=== PATIENT | male | born 1950 ===

== ENCOUNTER 2016-11-23 08:18 | Day surgery (SDC) | payer OTHER, MEDICAID ==
[2016-11-13 13:29] VITALS: BMI 30.8
[2016-11-23] MEDS ORDERED: Propofol 10 mg/ml Inj (20 ML) ONE (09:06)
[2016-11-23] MEDS ORDERED: Sodium Chloride 0.9% 1,000 ML IV SCH (09:30)
[2016-11-23 09:36] VITALS: O2SAT 98
[2016-11-23 10:20] VITALS: BP 116/74; PULSE 67; RESP 16; TEMP 98.5
== END 2016-11-23 11:00 | disposition home or self-care (01) ==
LOC: ENDO 08:18
PROVIDERS: ATTEND Internal Medicine
DX: K57.30 Diverticulosis of large intestine without perforation or abscess without bleeding (principal); D12.3 Benign neoplasm of transverse colon; K64.8 Other hemorrhoids; I10 Essential (primary) hypertension
CPT/HCPCS: 45380; 88305; J2704; J7040 ×2

== ENCOUNTER 2016-12-01 12:20 | Inpatient (IN) | payer OTHER, MEDICAID ==
[2016-12-01 12:35] VITALS: BMI 22.8
[2016-12-01] MEDS ORDERED: Morphine 4 mg/ml ISec IVP STA (13:10)
[2016-12-01] MEDS ORDERED: Sodium Chloride 0.9% 500 ML IV STA (13:11)
[2016-12-01] MEDS ORDERED: Iohexol 240 (50 ml) ONE (13:12)
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
[2016-12-01 14:04] LABS: ADD MANUAL DIFF? NO
[2016-12-01 14:08] LABS: BASO # 0.03 K/mm3 (0.0-2.0); BASO % 0.4 % (0.0-3.0); EOS # 0.4 (0.0-0.7); EOS % 5.6 % (1.5-5.0); GRAN # 4.83 (1.4-6.5); GRAN % 68.2 % (50.0-68.0); LYMPH # 1.4 (1.2-3.4); LYMPH % 19.7 % (22.0-35.0); MEAN CELL VOLUME 86.3 fL (80.0-105.0); MEAN CORPUSCULAR HEMOGLOBIN 28.9 pg (25.0-35.0); MEAN CORPUSCULAR HGB CONC 33.5 g/dl (31.0-37.0); MEAN PLATELET VOLUME 10.7 fl (7.0-11.0); MONO # 0.4 (0.1-0.6); MONO % 6.1 % (1.0-6.0); PLATELET COUNT 271 10^3/uL (120.0-450.0); RED CELL DISTRIBUTION WIDTH 15.2 % (11.5-14.5); WHITE BLOOD COUNT 7.1 10^3/ul (4.5-11.0)
[2016-12-01 14:18] LABS: INR 1.1 (0.93-1.08); PARTIAL THROMBOPLASTIN TIME 25.9 Seconds (23.7-30.8)
[2016-12-01 16:42] LABS: ALB/GLOB RATIO 0.8 (1.1-1.8); ALKALINE PHOSPHATASE 107 U/L (38-133); ALT/SGPT 38 U/L (7-56); AST/SGOT 44 U/L (15-59); BILIRUBIN,TOTAL 0.2 mg/dL (0.2-1.3); BLOOD UREA NITROGEN 18 mg/dL (7-21); CALCIUM 8.3 mg/dL (8.4-10.5); CARBON DIOXIDE 29 mmol/L (21-33); CHLORIDE 104 mmol/L (98-107); GFR AFRICAN-AMERICAN > 60; GLUCOSE,RANDOM 77 mg/dL (70-110); LIPASE 54 U/L (23-300); POTASSIUM 4.2 mmol/L (3.6-5.0); SODIUM 138 mmol/L (132-148); TOTAL PROTEIN 6.3 g/dL (5.8-8.3)
[2016-12-01] MEDS ORDERED: Iohexol 350 MG/100 ML VIAL ONE (17:10)
--- NOTE | 2016-12-01 19:02 | CT ---
PROCEDURE: CT Abdomen and Pelvis with contrast HISTORY: RLQ pain; h/o cystectomy and ileostomy COMPARISON: 11/05/2016 TECHNIQUE: Contrast dose: 100 cc of Omnipaque 320 Radiation dose: Total exam DLP = 757 mGy-cm. This CT exam was performed using one or more of the following dose reduction techniques: Automated exposure control, adjustment of the mA and/or kV according to patient size, and/or use of iterative reconstruction technique. FINDINGS: LOWER THORAX: Unremarkable. LIVER: Unremarkable. No gross lesion or ductal dilatation. GALLBLADDER AND BILE DUCTS: Unremarkable. PANCREAS: Unremarkable. No gross lesion or ductal dilatation. SPLEEN: Unremarkable. ADRENALS: Unremarkable. No mass. KIDNEYS AND URETERS: Re-demonstration of bilateral renal pelvic dilatation and E bilateral ureteral dilatation with left lower quadrant ileal conduit. VASCULATURE: Unremarkable. No aortic aneurysm. BOWEL: Mildly distended small bowel loops in the left mid abdomen, possibly representing an ileus. APPENDIX: Normal appendix. PERITONEUM: Unremarkable. No free fluid. No free air. LYMPH NODES: Unremarkable. No enlarged lymph nodes. BLADDER: Status post cystectomy.. REPRODUCTIVE: Penile implant in place. BONES: No acute fracture. OTHER FINDINGS: None. IMPRESSION: Mildly distended small bowel loops in the left mid abdomen, possibly representing an ileus. Cannot exclude early small bowel obstruction. Re-demonstration of bilateral renal pelvic dilatation and E bilateral ureteral dilatation with left lower quadrant ileal conduit.
--- NOTE | 2016-12-01 20:52 | CP.PCM.CON ---
<ZulemaAyah - Last Filed: 12/01/16 22:07> History of Present Illness - History of Present Illness History of Present Illness: General Surgery Dr. Mayen HPI: 66 y/o Uz[place]-speaking M w/ PMHx of Prostate Ca, HTN, GERD presents to the ED w/ c/o abd pain. Pt's daughter at bedside and provided translation. Pt reports having diffuse, crampy, intermittent abd pain x3mons; however pain significantly worsened yesterday evening after coughing/sneezing all week. Pt describes new pain as sharp and says it feels like something in moving or bursting out of his abd. Daughter reports multiple syncopal episodes over the last 3mons associated w/ the diffuse abd pain. nothing makes diffuse abd pain worse but Motrin 800mg makes pain better. Pt also admits to loose stool, urgency , and bowel incontinence over the last 3mons. Pt had an EGD 3mons ago and a colonoscopy 1wk ago. Pt denies recent flatus but states last BM was 30mins prior to interview. Admits to dizziness, lightheadedness, bloating/distension. denies CP, SOB, N/V, weakness. PMHx: above, hemorrhoids Meds: reviewed in chart NKDA PSHx: TURP, Penile implant, cystectomy, urostomy SHx: denies tobacco/drug use. 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 - ENDOCRINE/METABOLIC Hx Endocrine Disorders: No - HEMATOLOGICAL/ONCOLOGICAL Hx Blood Transfusions: Yes Hx Blood Transfusion Reaction: No Hx Cancer: Yes (Prostate) - INTEGUMENTARY Hx Dermatological Problems: No - MUSCULOSKELETAL/RHEUMATOLOGICAL Hx Musculoskeletal Disorders: No - GASTROINTESTINAL Hx Gastrointestinal Disorders: Yes Hx Gastritis: Yes Hx Hemorrhoids: Yes - GENITOURINARY/GYNECOLOGICAL Hx Genitourinary Disorders: Yes (UROSTOMY BAG) Other/Comment: PENILE SURGERY (FOR ERECTION) - PSYCHIATRIC Hx Emotional Abuse: No Hx Physical Abuse: No Hx Substance Use: No - SURGICAL HISTORY Other/Comment: Prostate - ANESTHESIA Hx Anesthesia Reactions: No Hx Malignant Hyperthermia: No Meds Allergies/Adverse Reactions: Allergies Allergy/AdvReac Type Severity Reaction Status Date / Time No Known Allergies Allergy Verified 12/07/16 17:58 Physical Exam - Constitutional Appears: Non-toxic, No Acute Distress - Head Exam Head Exam: NORMAL INSPECTION - Eye Exam Eye Exam: Normal appearance - ENT Exam ENT Exam: Mucous Membranes Moist - Respiratory Exam Respiratory Exam: Clear to Auscultation Bilateral, NORMAL BREATHING PATTERN. absent: Accessory Muscle Use, Respiratory Distress - Cardiovascular Exam Cardiovascular Exam: REGULAR RHYTHM. absent: Bradycardia, Tachycardia, Clicks - GI/Abdominal Exam GI & Abdominal Exam: Distended (minimal ), Hernia (incisional, right of midline) , Normal Bowel Sounds, Soft, Tenderness (RLQ/umbilical TTP). absent: Guarding Additional comments: urostomy bag w/ clear, yellow urine midline scar present - Extremities Exam Extremities exam: Positive for: normal inspection. Negative for: pedal edema - Neurological Exam Neurological exam: Alert, Oriented x3 - Psychiatric Exam Psychiatric exam: Normal Affect, Normal Mood - Skin Skin Exam: Dry, Intact, Normal Color, Warm Results - Vital Signs Recent Vital Signs: Last Vital Signs Temp 98.2 F 12/01/16 12:35 Pulse 66 12/01/16 18:55 Resp 18 12/01/16 18:55 BP 118/79 12/01/16 18:55 Pulse Ox 98 12/01/16 18:55 - Labs Result Diagrams: 12/01/16 14:03 12/01/16 16:23 - Imaging and Cardiology CT scan - chest Status: Image reviewed by me, Report reviewed by me Assessment & Plan - Assessment and Plan (Free Text) Assessment: 66 y/o M w/ abd pain possibly 2/2 pSBO - reducible incisional hernia - monitor BMs - pain management - sips & chips - NGT if vomiting develops will discuss w/ Dr. Faheem Poole DO PGY1 <Sukumar Mayen - Last Filed: 12/08/16 08:33> Results - Vital Signs Recent Vital Signs: Last Vital Signs Temp 98.3 F 12/04/16 08:28 Pulse 64 12/04/16 08:28 Resp 20 12/04/16 08:28 BP 142/93 H 12/04/16 08:28 Pulse Ox 98 12/04/16 08:28 - Labs Result Diagrams: 12/02/16 07:00 12/02/16 07:00 Assessment & Plan - Assessment and Plan (Free Text) Plan: Dx Acute Gastroenteritis(No Ventral Hernia found-CT/Examination) Rx Cons measures/No surgery advised This consultation done under myn direct supervision Sirisha Mayen MD FACS
[2016-12-01] MEDS ORDERED: HYDROmorphone 0.5 mg/0.5 ml ISec IVP PRN (22:00)
[2016-12-02 07:49] LABS: BLOOD UREA NITROGEN 15 mg/dL (7-21); CALCIUM 9.1 mg/dL (8.4-10.5); CARBON DIOXIDE 28 mmol/L (21-33); CHLORIDE 107 mmol/L (98-107); CHOLESTEROL 106 mg/dL (130-200); GFR AFRICAN-AMERICAN > 60; GLUCOSE,RANDOM 84 mg/dL (70-110); SODIUM 141 mmol/L (132-148)
[2016-12-02 07:51] LABS: HEMATOCRIT 33.2 % (42.0-52.0); MEAN CELL VOLUME 85.8 fL (80.0-105.0); MEAN CORPUSCULAR HEMOGLOBIN 28.2 pg (25.0-35.0); MEAN CORPUSCULAR HGB CONC 32.8 g/dl (31.0-37.0); MEAN PLATELET VOLUME 10.9 fl (7.0-11.0); RED CELL DISTRIBUTION WIDTH 15.1 % (11.5-14.5); WHITE BLOOD COUNT 4.9 10^3/ul (4.5-11.0)
[2016-12-02 08:23] LABS: IRON 98 ug/dL (45-180)
--- NOTE | 2016-12-02 09:38 | CP.PCM.CON ---
<Justice Ruiz - Last Filed: 12/02/16 15:52> History of Present Illness - History of Present Illness History of Present Illness: PGY4 GI Fellow Consult Note Patient is a 66yo male with PMHx significant for prostate cancer s/p cystectomy and ileal conduit urinary diversion presents to the ED for abdominal pain. Patient has been suffering with mild diffuse abdominal pain for the past 3 months. He describes pain as pressing/squeezing in nature. Over the past week he has had a cough/URI symptoms and noted worsening of pain with coughing/ sneezing. In the past 24-48 hours, pain intensified in the RLQ and began to spread to the entire lower abdomen. Complains that his ileostomy is filling with air when he coughs. Given the increase in pain, he came to the ED for further evaluation. On CT A/P with IV/PO contrast he is noted to have possible ileus as well as hydronephrosis/hydroureter. He denies any diarrhea, constipation, nausea, vomiting, weight loss, fever, chills. PMHx: see HPI PSHx: TURP, penile implant, ileal conduit formation FHx: Mother - Asthma Social: Quit smoking about 35 pack yrs; denies EtOH or illicit drug use Endo: 11/23/16 - Colonoscopy - 3mm TC polyp - tubular adenoma, diverticulosis, end-to-side colo-colonic anastamosis in the TC 06/26/16 - EGD - Gastritis - H pylori positive, reflux esophagitis 06/26/26 - Colonoscopy - 3mm TC polyp - tubular adenoma, diverticulosis; inflammation - mild crypt distortion, no active colitis Review of Systems - Constitutional Constitutional: absent: Anorexia, Chills, Fatigue, Fever - EENT Eyes: absent: Change in Vision Nose/Mouth/Throat: absent: Sore Throat - Cardiovascular Cardiovascular: absent: Chest Pain, Dyspnea, Edema - Respiratory Respiratory: Cough. absent: Dyspnea, Excessive Mucous Production - Gastrointestinal Gastrointestinal: Abdominal Pain, Bloating, Cramping. absent: Constipation, Diarrhea, Dyspepsia, Dysphagia, Hematemesis, Hematochezia, Loose Stools, Melena , Nausea, Vomiting - Genitourinary Genitourinary: absent: Dysuria, Urinary Frequency, Urinary Urgency - Musculoskeletal Musculoskeletal: absent: Back Pain, Neck Pain - Integumentary Integumentary: absent: New Lesions, Rash - Neurological Neurological: absent: Dizziness, Numbness, Focal Weakness - Psychiatric Psychiatric: absent: Anxiety, Depression - Endocrine Endocrine: absent: Polydipsia, Polyphagia, Polyuria - Hematologic/Lymphatic Hematologic: absent: Easy Bleeding, Easy Bruising, Lymphadenopathy Past Patient History - Past Medical History & Family History Past Medical History?: Yes - Past Social History Smoking Status: Never Smoked - CARDIAC Hx Hypertension: Yes Hx Pacemaker: No - PULMONARY Hx Respiratory Disorders: No - NEUROLOGICAL Hx Paralysis: No - HEENT Hx HEENT Problems: No - RENAL Hx Chronic Kidney Disease: Yes (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 - ENDOCRINE/METABOLIC Hx Endocrine Disorders: No - HEMATOLOGICAL/ONCOLOGICAL Hx Blood Transfusions: Yes Hx Blood Transfusion Reaction: No Hx Cancer: Yes (Prostate) - INTEGUMENTARY Hx Dermatological Problems: No - MUSCULOSKELETAL/RHEUMATOLOGICAL Hx Musculoskeletal Disorders: No - GASTROINTESTINAL Hx Gastrointestinal Disorders: Yes Hx Gastritis: Yes Hx Hemorrhoids: Yes - GENITOURINARY/GYNECOLOGICAL Hx Genitourinary Disorders: Yes (UROSTOMY BAG) Other/Comment: PENILE SURGERY (FOR ERECTION) - PSYCHIATRIC Hx Emotional Abuse: No Hx Physical Abuse: No Hx Substance Use: No - SURGICAL HISTORY Other/Comment: Prostate - ANESTHESIA Hx Anesthesia Reactions: No Hx Malignant Hyperthermia: No Meds Allergies/Adverse Reactions: Allergies Allergy/AdvReac Type Severity Reaction Status Date / Time No Known Allergies Allergy Verified 12/01/16 12:35 - Medications Medications: Current Medications Hydromorphone HCl (Dilaudid) 0.5 mg IVP Q4H PRN PRN Reason: Pain, Mild (1-3) Sodium Chloride (Sodium Chloride 0.9%) 1,000 mls @ 100 mls/hr IV .Q10H PAPI Pantoprazole Sodium (Protonix Inj) 40 mg IVP DAILY PAPI Physical Exam - Constitutional Appears: Non-toxic, No Acute Distress - Eye Exam Eye Exam: EOMI, PERRL - ENT Exam ENT Exam: Mucous Membranes Moist - Respiratory Exam Respiratory Exam: Clear to Auscultation Bilateral. absent: Rales, Rhonchi, Wheezes - Cardiovascular Exam Cardiovascular Exam: RRR, +S1, +S2 - GI/Abdominal Exam GI & Abdominal Exam: Normal Bowel Sounds, Soft, Tenderness (RLQ). absent: Distended, Firm, Guarding, Organomegaly, Rigid Additional comments: midline scar, left lower quadrant ileal conduit - Extremities Exam Extremities exam: Positive for: normal inspection. Negative for: pedal edema - Neurological Exam Neurological exam: Alert, Oriented x3 - Psychiatric Exam Psychiatric exam: Normal Affect, Normal Mood - Skin Skin Exam: Dry, Warm Results - Vital Signs Recent Vital Signs: Last Vital Signs Temp 98.2 F 12/01/16 12:35 Pulse 66 12/01/16 18:55 Resp 18 12/01/16 20:55 BP 118/79 12/01/16 18:55 Pulse Ox 98 12/01/16 18:55 - Labs Result Diagrams: 12/02/16 07:00 12/02/16 07:00 Labs: Laboratory Results - last 24 hr 12/02/16 12/02/16 12/02/16 07:00 07:00 07:00 WBC 4.9 D RBC 3.87 Hgb 10.9 L Hct 33.2 L MCV 85.8 MCH 28.2 MCHC 32.8 RDW 15.1 H Plt Count 255 MPV 10.9 Sodium 141 Potassium 4.0 Chloride 107 Carbon Dioxide 28 Anion Gap 10 BUN 15 Creatinine 1.0 Est GFR ( Amer) > 60 Est GFR (Non-Af Amer) > 60 Random Glucose 84 Calcium 9.1 Iron 98 TIBC 237 L % Saturation 42 Triglycerides 122 Cholesterol 106 L LDL Cholesterol Direct 41 HDL Cholesterol 24 L TSH 3rd Generation 12/02/16 07:00 WBC RBC Hgb Hct MCV MCH MCHC RDW Plt Count MPV Sodium Potassium Chloride Carbon Dioxide Anion Gap BUN Creatinine Est GFR ( Amer) Est GFR (Non-Af Amer) Random Glucose Calcium Iron TIBC % Saturation Triglycerides Cholesterol LDL Cholesterol Direct HDL Cholesterol TSH 3rd Generation 1.24 Assessment & Plan - Assessment and Plan (Free Text) Assessment: Patient is a 66yo male with PMHx significant for prostate cancer s/p cystectomy and ileal conduit urinary diversion presents to the ED for abdominal pain. -Abdominal pain -Hydroureter/hydronephrosis -H pylori gastritis Plan: -CT and recent EGD/colonoscopy reviewed -Recommend continuation of Quad therapy if patient is presently taking this regimen -Encourage urologic evaluation of persistent hydronephrosis/ureter and excess gas in ostomy -No further recommendations at this time -Will monitor clinical course - Date & Time Date: 12/02/16 Time: 09:45 <Lexx Matthews MD - Last Filed: 12/02/16 16:47> Meds - Medications Medications: Current Medications Hydromorphone HCl (Dilaudid) 0.5 mg IVP Q4H PRN PRN Reason: Pain, Mild (1-3) Sodium Chloride (Sodium Chloride 0.9%) 1,000 mls @ 100 mls/hr IV .Q10H PAPI Pantoprazole Sodium (Protonix Inj) 40 mg IVP DAILY PAPI Last Admin: 12/02/16 11:08 Dose: 40 mg Results - Vital Signs Recent Vital Signs: Last Vital Signs Temp 98.5 F 12/02/16 06:00 Pulse 62 12/02/16 06:00 Resp 20 12/02/16 06:00 BP 105/75 12/02/16 06:00 Pulse Ox 98 12/02/16 06:00 - Labs Result Diagrams: 12/02/16 07:00 12/02/16 07:00 Labs: Laboratory Results - last 24 hr 12/02/16 12/02/16 12/02/16 07:00 07:00 07:00 WBC RBC Hgb Hct MCV MCH MCHC RDW Plt Count MPV Sodium 141 Potassium 4.0 Chloride 107 Carbon Dioxide 28 Anion Gap 10 BUN 15 Creatinine 1.0 Est GFR ( Amer) > 60 Est GFR (Non-Af Amer) > 60 Random Glucose 84 Hemoglobin A1c 6.1 Calcium 9.1 Iron 98 TIBC 237 L % Saturation 42 Triglycerides 122 Cholesterol 106 L LDL Cholesterol Direct 41 HDL Cholesterol 24 L Vitamin B12 805 Folate 16.1 TSH 3rd Generation 12/02/16 12/02/16 07:00 07:00 WBC 4.9 D RBC 3.87 Hgb 10.9 L Hct 33.2 L MCV 85.8 MCH 28.2 MCHC 32.8 RDW 15.1 H Plt Count 255 MPV 10.9 Sodium Potassium Chloride Carbon Dioxide Anion Gap BUN Creatinine Est GFR ( Amer) Est GFR (Non-Af Amer) Random Glucose Hemoglobin A1c Calcium Iron TIBC % Saturation Triglycerides Cholesterol LDL Cholesterol Direct HDL Cholesterol Vitamin B12 Folate TSH 3rd Generation 1.24 Attending/Attestation - Attestation I have personally seen and examined this patient.: Yes I have fully participated in the care of the patient.: Yes I have reviewed all pertinent clinical information: Yes Notes (Text): 12/02/16 16:44 66 yo male with PMHx significant for prostate cancer s/p cystectomy and ileal conduit urinary diversion presents to the ED for abdominal pain which has been chronic mostly after eating. He has had EGd and 2 colonoscopies which were unrevealing. Recently started on H pylori treatment. Pain could be multifactorial with b/l hydroureter and H pylori gastritis. Prudent to rule out mesenteric ischemia. Will do CT angiogram. Continue quadruple H pylori Rx. Diet as tolerated
[2016-12-02 09:58] VITALS: RESP 20
[2016-12-02 12:57] LABS: FOLATE 16.1 ng/mL
--- NOTE | 2016-12-02 13:08 | CP.PCM.PCO ---
Physician Communication Note - Physician Communication Note Physician Communication Note: CT No Hernia-[employer]/No surgery now
--- NOTE | 2016-12-02 13:53 | CP.PCM.PN ---
Subjective - Date & Time of Evaluation Date of Evaluation: 12/02/16 Time of Evaluation: 10:00 - Subjective Subjective: General Surgery Progress Note for Dr. Mayen Pt was seen and examined at bedside. No acute complaints at this time. No acute or adverse events overnight as per nursing staff. Pt has mild abdominal pain at this time on the RLQ, especially upon palpation. No fever chills, n/v. Objective - Vital Signs/Intake and Output Vital Signs (last 24 hours): Temp Pulse Resp BP Pulse Ox 98.5 F 62 20 105/75 98 12/02/16 06:00 12/02/16 06:00 12/02/16 06:00 12/02/16 06:00 12/02/16 06:00 Intake and Output: 12/02/16 12/02/16 06:59 18:59 Intake Total 0 0 Output Total 200 Balance 0 -200 - Medications Medications: Current Medications Hydromorphone HCl (Dilaudid) 0.5 mg IVP Q4H PRN PRN Reason: Pain, Mild (1-3) Sodium Chloride (Sodium Chloride 0.9%) 1,000 mls @ 100 mls/hr IV .Q10H [facility] Pantoprazole Sodium (Protonix Inj) 40 mg IVP DAILY [facility] Last Admin: 12/02/16 11:08 Dose: 40 mg - Labs Labs: 12/02/16 07:00 12/02/16 07:00 PT 11.9 Seconds (9.9-11.8) H 12/01/16 14:03 INR 1.10 (0.93-1.08) H 12/01/16 14:03 APTT 25.9 Seconds (23.7-30.8) 12/01/16 14:03 - Constitutional Appears: Well, No Acute Distress - Head Exam Head Exam: ATRAUMATIC, NORMAL INSPECTION, NORMOCEPHALIC - Eye Exam Eye Exam: EOMI, Normal appearance, PERRL Pupil Exam: NORMAL ACCOMODATION, PERRL - ENT Exam ENT Exam: Mucous Membranes Moist, Normal Exam - Neck Exam Neck Exam: Full ROM, Normal Inspection. absent: Lymphadenopathy - Respiratory Exam Respiratory Exam: Clear to Ausculation Bilateral, NORMAL BREATHING PATTERN - Cardiovascular Exam Cardiovascular Exam: REGULAR RHYTHM, +S1, +S2. absent: Murmur - GI/Abdominal Exam GI & Abdominal Exam: Soft, Normal Bowel Sounds. absent: Tenderness Additional comments: ileal conduit - Extremities Exam Extremities Exam: Full ROM, Normal Capillary Refill, Normal Inspection. absent : Joint Swelling, Pedal Edema - Neurological Exam Neurological Exam: Alert, Awake, CN II-XII Intact, Oriented x3 - Psychiatric Exam Psychiatric exam: Normal Affect, Normal Mood - Skin Skin Exam: Dry, Intact, Normal Color, Warm Assessment and Plan - Assessment and Plan (Free Text) Assessment: 66 M with abdominal pain and s/p ileal conduit. -No incisional hernia or obstruction noted on CT - pain management - sips & chips - GI consulted, fu recs - Advance diet as tolerated, CLD - No surgical intervention at this time.
[2016-12-02] MEDS: Sodium Chloride 0.9% 1,000 ML IV SCH ×2 (21:30→21:31)
--- NOTE | 2016-12-03 00:54 | PN ---
DATE: 12/02/2016 SUBJECTIVE: The patient was seen and examined on the bedside effects. and the family members were sitting on the bedside also. No acute event noted over the night. No adverse pain. No nausea or vomiting right now, but having a little bit of pain in the right lower quadrant, especially upon palpation. No fever, no chills. PHYSICAL EXAMINATION: VITAL SIGNS: Temperature 98.5, pulse 62, respirations 20, blood pressure 105/75 , pulse oximetry 98. HEENT: Head normocephalic, atraumatic. Eyes PERRLA. Extraocular muscles intact. Conjunctivae clear. Nose patent. Mucous membranes moist. NECK: Supple. No carotid bruit, JVD or thyromegaly. CHEST: Bilaterally symmetrical. HEART: S1, S2 positive. LUNGS: Clear to auscultation. ABDOMEN: Soft. Bowel sounds present. No organomegaly. EXTREMITIES: No edema, no cyanosis. NEUROLOGIC: The patient awake, alert, moving all 4 extremities. No focal deficits. LABORATORY DATA: White blood cells 4.9, hemoglobin 10.9, hematocrit 33.2, platelets 255. Sodium 141, potassium 4.0, BUN 15, creatinine 1.0, glucose 84. MEDICATIONS: Hydromorphone, Protonix. ASSESSMENT AND PLAN: The patient is a 66-year-old male with anemia. Came with abdominal pain, ileal conduit. No incisional hernia or obstruction noted on CT. Pain management, sips and chips as per surgery. GI consult is on the case. Advanced diet tolerated. No surgical intervention as per Dr. Mayen right now. Dr. Mayen' communication report appreciated. The patient seen by Dr. Lexx Matthews. The patient has history of prostate cancer status post cystectomy and ileal conduit urinary diversion, history of chronic obstructive pulmonary disease, asthma. Pain is like mostly chronic, but more after eating. He had EGD, and 2 colonoscopies which were unrevealing. Recently started on Helicobacter pylori treatment. Rule out mesenteric ischemia. Dr. Matthews ordered CT angio. Continue quadruple Helicobacter pylori prescription and diet as tolerated. Discussion done with the patient and patient's . We will follow up. Catherine Lopez MD cc: [id number] TT: 12/03/2016 00:53:05 Confirmation # [id number] Dictation # [id number] sn MTDD
[2016-12-03] MEDS: Sodium Chloride 0.9% 1,000 ML IV SCH ×2 (04:39→15:35)
--- NOTE | 2016-12-03 08:15 | HP ---
CHIEF COMPLAINT: Abdominal pain. HISTORY OF PRESENT ILLNESS: The patient, my private patient, a 66-year-old male with past medical history of prostate cancer, status post colostomy, status post cystectomy and ileostomy, came to the Emergency Room Department complaining about right-sided abdominal pain since last night. As per heating repair technician, who is acting as a retail shift leader, the patient states that his pain worsens with movement. The patient denies any back pain or any other complaints at this time. No fever, no chills. The patient was seen a couple of times with lower abdominal pain. The patient has actually all doctors in [facility] about his surgery and oncology treatment from [facility]. 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 FAMILY HISTORY: Father and mother noncontributory. HABITS: Never smoked. Alcohol occasionally. Drugs, never uses. ALLERGIES: The patient is not allergic with any medications. HOME MEDICATIONS: The patient does not remember. REVIEW OF SYSTEMS: The patient seen and examined on the bedside. No nausea, vomiting, diarrhea. Complaining about lower abdominal pain. No dysuria, no urinary output change, no back pain, no neck pain, no pruritus or rash, no dizziness, no polyuria, no easy bruising, not depression. No fever or chills. No vision changes, no hearing loss, no shortness of breath, no chest pain, but has abdominal pain. PHYSICAL EXAMINATION: VITAL SIGNS: Temperature 98.2, pulse 74, respiratory rate 18, blood pressure 120/90, pulse oximeter 98%. HEENT: Head normocephalic, atraumatic. Eyes PERRLA. Extraocular muscles intact. Conjunctivae clear. Nose patent. Mucous membranes moist. NECK: Supple. No carotid bruit, no JVD, no thyromegaly. CHEST: Bilaterally symmetrical. HEART: S1, S2 positive. LUNGS: Clear to auscultation. Good air exchange . CARDIOVASCULAR: Regular rate and rhythm. Normal S1, S2 positive. ABDOMEN: Tenderness on palpation to the right lower quadrant. Scars, multiple abdominal scars with ileostomy present. EXTREMITIES: No edema, no cyanosis. NEUROLOGIC: The patient is awake, alert, moving all 4 extremities. Cranial nerves II-XII are grossly intact. LABORATORIES: White blood cells 7.1, hemoglobin 11.4, hematocrit 34.0, platelets 271. Sodium 130, potassium 4.2, BUN noted .creatinine 1.0, glucose 77. ASSESSMENT AND PLAN: The patient is a 66-year-old male with anemia, came with abdominal pain. CAT scan of the abdomen and pelvis done, has mildly distended small bowel loops in the left mid abdomen, possibility of representing an ileus , cannot exclude early small bowel obstruction, redemonstration of the bilateral renal pelvic dilatation and bilateral urethral dilatation and left lower quadrant ileal conduit. We will call consult with surgery and GI. The patient has history of prostate cancer, status post cystectomy and ileostomy, history of hypertension. 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 History of anemia, blood transfusion. Gastrointestinal and deep venous thrombosis prophylaxis, pain management, IV fluid and Pepcid. We will follow up. Catherine Lopez MD cc: [id number] TT: 12/02/2016 09:07:57 en MTDD
--- NOTE | 2016-12-03 09:12 | CP.PCM.PN ---
<JanaenatoJustice mcghee - Last Filed: 12/03/16 14:15> Subjective - Date & Time of Evaluation Date of Evaluation: 12/03/16 Time of Evaluation: 08:15 - Subjective Subjective: PGY4 GI Fellow Progress Note Patient seen and examined bedside this morning. The patient denies any new complaints. Eeager to return home. Pain has lessened but still present in lower abdomen. No events overnight. 12 system ROS performed and negative except where stated. Objective - Vital Signs/Intake and Output Vital Signs (last 24 hours): Temp Pulse Resp BP Pulse Ox 97.6 F 61 20 133/94 H 98 12/03/16 08:03 12/03/16 08:03 12/03/16 08:03 12/03/16 08:03 12/03/16 08:03 Intake and Output: 12/03/16 12/03/16 06:59 18:59 Intake Total 780 0 Output Total 1800 800 Balance -1020 -800 - Medications Medications: Current Medications Hydromorphone HCl (Dilaudid) 0.5 mg IVP Q4H PRN PRN Reason: Pain, Mild (1-3) Sodium Chloride (Sodium Chloride 0.9%) 1,000 mls @ 100 mls/hr IV .Q10H [facility] Last Admin: 12/03/16 04:39 Dose: 100 mls/hr Pantoprazole Sodium (Protonix Inj) 40 mg IVP DAILY [facility] Last Admin: 12/02/16 11:08 Dose: 40 mg - Labs Labs: 12/02/16 07:00 12/02/16 07:00 PT 11.9 Seconds (9.9-11.8) H 12/01/16 14:03 INR 1.10 (0.93-1.08) H 12/01/16 14:03 APTT 25.9 Seconds (23.7-30.8) 12/01/16 14:03 - Constitutional Appears: Non-toxic, No Acute Distress - Eye Exam Eye Exam: EOMI, PERRL - ENT Exam ENT Exam: Mucous Membranes Moist - Respiratory Exam Respiratory Exam: Clear to Ausculation Bilateral. absent: Rales, Rhonchi, Wheezes - Cardiovascular Exam Cardiovascular Exam: RRR, +S1, +S2 - GI/Abdominal Exam GI & Abdominal Exam: Soft, Tenderness (RLQ), Normal Bowel Sounds. absent: Distended, Firm, Guarding, Rigid, Organomegaly Additional comments: ileal conduit ostomy - Extremities Exam Extremities Exam: Normal Inspection. absent: Pedal Edema - Neurological Exam Neurological Exam: Alert, Awake, Oriented x3 - Psychiatric Exam Psychiatric exam: Normal Affect, Normal Mood - Skin Skin Exam: Dry, Warm Assessment and Plan - Assessment and Plan (Free Text) Assessment: Patient is a 66yo male with PMHx significant for prostate cancer s/p cystectomy and ileal conduit urinary diversion presents to the ED for abdominal pain. -Abdominal pain -Hydroureter/hydronephrosis -H pylori gastritis Plan: -CT and recent EGD/colonoscopy reviewed -CT angio A/P this morning was unremarkable -No plans for any further work up while in house -Encourage diet as tolerated -Will resume Quad therapy for H pylori on D/C -Follow up outpatient as needed <Sarwat Hauser - Last Filed: 12/03/16 15:23> Objective - Vital Signs/Intake and Output Vital Signs (last 24 hours): Temp Pulse Resp BP Pulse Ox 97.6 F 61 20 133/94 H 98 12/03/16 08:03 12/03/16 08:03 12/03/16 08:03 12/03/16 08:03 12/03/16 08:03 Intake and Output: 12/03/16 12/03/16 06:59 18:59 Intake Total 780 400 Output Total 1800 1100 Balance -1020 -700 - Medications Medications: Current Medications Hydromorphone HCl (Dilaudid) 0.5 mg IVP Q4H PRN PRN Reason: Pain, Mild (1-3) Sodium Chloride (Sodium Chloride 0.9%) 1,000 mls @ 100 mls/hr IV .Q10H [facility] Last Admin: 12/03/16 04:39 Dose: 100 mls/hr Pantoprazole Sodium (Protonix Inj) 40 mg IVP DAILY [facility] Last Admin: 12/02/16 11:08 Dose: 40 mg - Labs Labs: 12/02/16 07:00 12/02/16 07:00 PT 11.9 Seconds (9.9-11.8) H 12/01/16 14:03 INR 1.10 (0.93-1.08) H 12/01/16 14:03 APTT 25.9 Seconds (23.7-30.8) 12/01/16 14:03 Attending/Attestation - Attestation I have personally seen and examined this patient.: Yes I have fully participated in the care of the patient.: Yes I have reviewed all pertinent clinical information, including history, physical exam and plan: Yes Notes (Text): 12/03/16 15:22 66 year old male with h/o prostate ca s/p cystectomy and ileal conduit admitted with abdominal pain. 1. Abdominal pain 2. Helicobacter pylori gastritis Plan: -CT abdomen, mild ileus, seems clinically resolved, evaluated by surgery -has had EGD/colonoscopy -CT angio A/P this morning was negative for any signs of mesenteric ischemia -symptomatically improved -diet as tolerated -Will resume Quad therapy for H pylori on D/C -ok to discharge
--- NOTE | 2016-12-03 10:56 | CT ---
PROCEDURE: CT Abdomen and Pelvis with contrast HISTORY: abdominal pain, worse with eating COMPARISON: None. TECHNIQUE: Contrast dose: 150 cc of Omni 350 Radiation dose: Total exam DLP = 529 mGy-cm. This CT exam was performed using one or more of the following dose reduction techniques: Automated exposure control, adjustment of the mA and/or kV according to patient size, and/or use of iterative reconstruction technique. FINDINGS: LOWER THORAX: Unremarkable. LIVER: Unremarkable. No gross lesion or ductal dilatation. GALLBLADDER AND BILE DUCTS: Unremarkable. PANCREAS: Unremarkable. No gross lesion or ductal dilatation. SPLEEN: Unremarkable. ADRENALS: Unremarkable. No mass. KIDNEYS AND URETERS: Unremarkable. No hydronephrosis. No solid mass. VASCULATURE: Unremarkable. No aortic aneurysm. MAJOR AORTIC BRANCHES: Celiac [place]: Unremarkable. Superior mesenteric artery: Unremarkable. Inferior mesenteric artery: Unremarkable. Renal arteries: Unremarkable. BOWEL: Unremarkable. No obstruction. No gross mural thickening. APPENDIX: Normal appendix. PERITONEUM: Unremarkable. No free fluid. No free air. LYMPH NODES: Unremarkable. No enlarged lymph nodes. BLADDER: Bladder resected. Ileal conduit with chronically dilated ureters and collecting systems REPRODUCTIVE: Unremarkable. BONES: No acute fracture. OTHER FINDINGS: None. IMPRESSION: Unremarkable aorta. No evidence of stenosis or occlusion of the SMA or celiac axis.
--- NOTE | 2016-12-03 15:54 | CP.PCM.PN ---
Subjective - Date & Time of Evaluation Date of Evaluation: 12/03/16 Time of Evaluation: 09:00 - Subjective Subjective: Surgery: Dr. Mayen Pt seen and examined. No acute overnight events. States he feels a lot better and is tolerating liquids. Denies abdominal pain. Denies N/V, F/C. Admits to BMs. Objective - Vital Signs/Intake and Output Vital Signs (last 24 hours): Temp Pulse Resp BP Pulse Ox 97.6 F 61 20 133/94 H 98 12/03/16 08:03 12/03/16 08:03 12/03/16 08:03 12/03/16 08:03 12/03/16 08:03 Intake and Output: 12/03/16 12/03/16 06:59 18:59 Intake Total 780 400 Output Total 1800 1100 Balance -1020 -700 - Medications Medications: Current Medications Hydromorphone HCl (Dilaudid) 0.5 mg IVP Q4H PRN PRN Reason: Pain, Mild (1-3) Sodium Chloride (Sodium Chloride 0.9%) 1,000 mls @ 100 mls/hr IV .Q10H [facility] Last Admin: 12/03/16 15:35 Dose: Not Given Pantoprazole Sodium (Protonix Inj) 40 mg IVP DAILY [facility] Last Admin: 12/03/16 15:34 Dose: 40 mg - Labs Labs: 12/02/16 07:00 12/02/16 07:00 PT 11.9 Seconds (9.9-11.8) H 12/01/16 14:03 INR 1.10 (0.93-1.08) H 12/01/16 14:03 APTT 25.9 Seconds (23.7-30.8) 12/01/16 14:03 - Constitutional Appears: Well, No Acute Distress - Head Exam Head Exam: ATRAUMATIC, NORMOCEPHALIC - Eye Exam Eye Exam: Normal appearance - ENT Exam ENT Exam: Mucous Membranes Moist - Respiratory Exam Respiratory Exam: NORMAL BREATHING PATTERN - Cardiovascular Exam Cardiovascular Exam: RRR - GI/Abdominal Exam GI & Abdominal Exam: Soft. absent: Distended, Tenderness Additional comments: ileal conduit in place LLQ with urine in bag - Neurological Exam Neurological Exam: Alert, Awake, Oriented x3 - Skin Skin Exam: Dry, Warm Assessment and Plan - Assessment and Plan (Free Text) Assessment: 66M with abdominal pain r/o obstruction Plan: - diet advanced - ok to DC from surgical standpoint - f/u with GI as outpt - no surgical intervention at this time - d/w Dr. Faheem Swift, PGY-2 Surgery
[2016-12-04] MEDS: Sodium Chloride 0.9% 1,000 ML IV SCH (02:16)
--- NOTE | 2016-12-04 06:20 | PN ---
DATE: 12/03/2016 SUBJECTIVE: The patient seen and examined on the bedside. He looks comfortable. No nausea, vomiting, or diarrhea. No hematuria or hematochezia. No chest pain, no palpitation. Abdominal pain is getting better. Denies any complaints. The patient's lower abdominal pain is less, but still there. No event overnight. REVIEW OF SYSTEMS: A 12-organ review of systems performed and negative except above. PHYSICAL EXAMINATION: VITAL SIGNS: Temperature 97.6, pulse 51, respiratory rate 20, blood pressure 132/94, pulse oximetry 98. HEENT: Head normocephalic, atraumatic. Eyes: PERRLA. Extraocular muscles intact. Conjunctivae clear. Nose patent. Mucous membranes moist. NECK: Supple. No carotid bruit, JVD or thyromegaly. CHEST: Bilaterally symmetrical. HEART: S1, S2 positive. LUNGS: Clear to auscultation. ABDOMEN: Soft. Bowel sounds present. No organomegaly. EXTREMITIES: No edema, no cyanosis. NEUROLOGIC: The patient is awake, alert, moving all 4 extremities. No focal deficits. MEDICATIONS: Dilaudid, NS, Protonix. LABORATORY DATA: White blood cells 4.9, hemoglobin 10.9, hematocrit 33.2, platelets 255. Sodium 141, potassium 4.0, BUN 15, creatinine 1.0, glucose 89. ASSESSMENT AND PLAN: The patient is a 66-year-old male with anemia, history of prostate cancer, status post cystectomy and ileal conduit, admitted with abdominal pain, Helicobacter pylori gastritis. CT abdomen mid ileum seen was clinically resolved. Eventually evaluated by surgeon, has had EGD and colonoscopy, CT angio, was negative for any signs of mesenteric ischemia, symptomatically improved. Diet tolerated. We will resume therapy for Helicobacter pylori on discharge. The patient is seen by the surgeon. Pain with obstruction resolved. Now, the patient is cleared by surgery and gastroenterology for discharge. We will repeat labs. We will follow up. Catherine Lopez MD cc: [id number] TT: 12/04/2016 06:19:50 Confirmation # [id number] Dictation # [id number] tn [facility]
--- NOTE | 2016-12-04 07:37 | CP.PCM.PN ---
<Justice Ruiz - Last Filed: 12/04/16 07:46> Subjective - Date & Time of Evaluation Date of Evaluation: 12/04/16 Time of Evaluation: 07:34 - Subjective Subjective: PGY4 GI Fellow Progress Note Patient seen and examined bedside this morning. The patient denies any issues overnight. Passing loose stool yesterday. No abdominal pain at present. Tolerating diet without pain. 12 system ROS performed and negative except where stated. Objective - Vital Signs/Intake and Output Vital Signs (last 24 hours): Temp Pulse Resp BP Pulse Ox 98.6 F 65 20 125/81 99 12/03/16 16:00 12/03/16 16:00 12/03/16 16:00 12/03/16 16:00 12/03/16 16:00 Intake and Output: 12/04/16 12/04/16 06:59 18:59 Intake Total 900 Output Total 750 Balance 150 - Medications Medications: Current Medications Hydromorphone HCl (Dilaudid) 0.5 mg IVP Q4H PRN PRN Reason: Pain, Mild (1-3) Sodium Chloride (Sodium Chloride 0.9%) 1,000 mls @ 100 mls/hr IV .Q10H [facility] Last Admin: 12/04/16 02:16 Dose: Not Given Pantoprazole Sodium (Protonix Inj) 40 mg IVP DAILY [facility] Last Admin: 12/03/16 15:34 Dose: 40 mg - Labs Labs: PT 11.9 Seconds (9.9-11.8) H 12/01/16 14:03 INR 1.10 (0.93-1.08) H 12/01/16 14:03 APTT 25.9 Seconds (23.7-30.8) 12/01/16 14:03 - Constitutional Appears: Non-toxic, No Acute Distress - Eye Exam Eye Exam: EOMI, PERRL - ENT Exam ENT Exam: Mucous Membranes Moist - Respiratory Exam Respiratory Exam: Clear to Ausculation Bilateral. absent: Rales, Rhonchi, Wheezes - Cardiovascular Exam Cardiovascular Exam: RRR, +S1, +S2 - GI/Abdominal Exam GI & Abdominal Exam: Soft, Normal Bowel Sounds. absent: Distended, Firm, Guarding, Rigid, Tenderness, Organomegaly Additional comments: midline surgical scar; LLQ ileal conduit - Extremities Exam Extremities Exam: Normal Inspection. absent: Pedal Edema - Neurological Exam Neurological Exam: Alert, Awake, Oriented x3 - Psychiatric Exam Psychiatric exam: Normal Affect, Normal Mood - Skin Skin Exam: Dry, Warm Assessment and Plan - Assessment and Plan (Free Text) Assessment: Patient is a 66yo male with PMHx significant for prostate cancer s/p cystectomy and ileal conduit urinary diversion presents to the ED for abdominal pain. -Abdominal pain -Hydroureter/hydronephrosis -H pylori gastritis Plan: -All imaging unremarkable -No evidence of obstruction, tolerating diet and passing flatus/stool -Diet as tolerated -No plan for endoscopic intervention -Family brought the patient's Pylera (Quad therapy) from home and he has resumed therapy for H pylori as of yesterday -Outpatient follow up as needed -OK to D/C from GI standpoint -Will sign off. Thank you for allowing us to participate in the care of your patient. <Duran Snell - Last Filed: 12/04/16 08:23> Objective - Vital Signs/Intake and Output Vital Signs (last 24 hours): Temp Pulse Resp BP Pulse Ox 98.6 F 65 20 125/81 99 12/03/16 16:00 12/03/16 16:00 12/03/16 16:00 12/03/16 16:00 12/03/16 16:00 Intake and Output: 12/04/16 12/04/16 06:59 18:59 Intake Total 900 Output Total 750 Balance 150 - Medications Medications: Current Medications Hydromorphone HCl (Dilaudid) 0.5 mg IVP Q4H PRN PRN Reason: Pain, Mild (1-3) Sodium Chloride (Sodium Chloride 0.9%) 1,000 mls @ 100 mls/hr IV .Q10H [facility] Last Admin: 12/04/16 02:16 Dose: Not Given Pantoprazole Sodium (Protonix Inj) 40 mg IVP DAILY [facility] Last Admin: 12/03/16 15:34 Dose: 40 mg - Labs Labs: PT 11.9 Seconds (9.9-11.8) H 12/01/16 14:03 INR 1.10 (0.93-1.08) H 12/01/16 14:03 APTT 25.9 Seconds (23.7-30.8) 12/01/16 14:03 Attending/Attestation - Attestation I have personally seen and examined this patient.: Yes I have fully participated in the care of the patient.: Yes I have reviewed all pertinent clinical information, including history, physical exam and plan: Yes Notes (Text): 12/04/16 08:19 I have seen and examined patient with GI fellow. No acute events overnight, he is seen sitting in chair near window, appears quite comfortable. He denies abdominal pain, nausea, vomiting, fever/chills. He had one loose bowel movement yesterday and is tolerating PO diet without difficulty. Prostate cancer s/p cystectomy with ileal conduit Abdominal pain - resolved, ?ileus Helicobacter pylori associated gastritis - Diet as tolerated - Continue with Pylera for treatment of hpylori associated gastritis - Patient planned for hospital discharge today - Will require additional outpatient follow up with Dr. Hauser within 2 weeks after completion of antibiotic therapy to confirm hpylori eradication - Will sign off case, please reconsult as necessary, thank you
[2016-12-04 08:29] VITALS: BP 142/93; PULSE 64; TEMP 98.3; O2SAT 98
--- NOTE | 2016-12-08 08:33 | DS ---
CHIEF COMPLAINT: Abdominal pain. HISTORY OF PRESENT ILLNESS: The patient is a 66-year-old male with past medical history of prostate cancer status post colostomy, status post cystectomy and ileostomy. Came to the Emergency Room Department complaining about right-sided abdominal pain since last night. The patient denies fever, chills. The patient was seen a couple of times with lower abdominal pain. The patient saw in [facility]. We did CAT scan of abdomen and pelvis. Consult called with GI . Surgical consult was called with Dr. Mayen also. The patient improved, discharged home. 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 PAST MEDICAL HISTORY: Hypertension, left kidney is not working since , urostomy/left ileal conduit bag, history of gastritis, hemorrhoids. PAST SURGICAL HISTORY: Denies surgeries. FAMILY HISTORY: Father and mother noncontributory. SOCIAL HISTORY: Never smoked. Alcohol occasionally. Drugs, never uses. ALLERGIES: The patient is not allergic with any medication. HOME MEDICATIONS: Reviewed by me. REVIEW OF SYSTEMS: The patient is seen and examined on the bedside, looks comfortable. No nausea, vomiting, diarrhea. No hematuria or hematochezia. No swelling of the leg. No chest pain, no palpitation. Abdominal pain is getting better. No headache, no dizziness. PHYSICAL EXAMINATION: VITAL SIGNS: Temperature 98.6, pulse 65, respirations 20, blood pressure 120/81 , pulse oximeter 99. HEENT: Head normocephalic, atraumatic. Eyes PERRLA. Extraocular movements intact. Conjunctivae clear. Nose patent. Mucous membranes moist. NECK: Supple. No carotid bruit, JVD or thyromegaly. CHEST: Bilaterally symmetrical. HEART: S1, S2 positive. LUNGS: Clear to auscultation. ABDOMEN: Soft. Bowel sounds positive. No organomegaly. EXTREMITIES: No edema, no cyanosis. NEUROLOGIC: The patient awake, alert, moving all 4 extremities. No focal deficit. MEDICATIONS: Dilaudid, Protonix. LABORATORY DATA: White blood cells 4.9, hemoglobin 10.9, hematocrit 33.2, platelets 255. Sodium 141, potassium 4.1, BUN 15, creatinine 1.0, glucose 84. ASSESSMENT AND PLAN: The patient is a 66-year-old male with anemia, hypercholesterolemia. Came with abdominal pain. The patient has Helicobacter associated gastritis as per gastrointestinal. The patient is getting treatment for treatment of Helicobacter pylori associated gastritis. Continue with that treatment. The patient needs followup with DrDarlin within 2 weeks for completion of antibiotics and from Helicobacter pylori eradication. Actually, gastrointestinal signed off the case because patient was stable gastrointestinal san. History of prostate cancer status post colostomy and ileal conduit. CT of the abdomen done shows mild clinically resolved. Gastrointestinal and surgery saw the patient. The patient had EGD and colonoscopy done. CT angio was negative for any signs of mesenteric ischemia. Symptomatically improved. Diet tolerated. Discharged home. Will follow up with gastrointestinal and primary care physician. Catherine Lopez MD cc: [id number] TT: 12/07/2016 18:43:15 sn MTDD
== END 2016-12-04 15:58 | disposition home or self-care (01) | DRG 392 ==
LOC: ED 12:20 → ERH 19:09 → 3RNO 20:32 → OBSVTOIN 12-02 16:46
PROVIDERS: ADMIT Internal Medicine; ATTEND Internal Medicine
DX: K29.70 Gastritis, unspecified, without bleeding (principal); N13.30 Unspecified hydronephrosis; J44.9 Chronic obstructive pulmonary disease, unspecified; B96.81 Helicobacter pylori [H. pylori] as the cause of diseases classified elsewhere; I10 Essential (primary) hypertension; D64.9 Anemia, unspecified; K21.9 Gastro-esophageal reflux disease without esophagitis; K43.2 Incisional hernia without obstruction or gangrene; E78.00 Pure hypercholesterolemia, unspecified; Z85.46 Personal history of malignant neoplasm of prostate; Z93.6 Other artificial openings of urinary tract status; Z93.2 Ileostomy status; Z82.5 Family history of asthma and other chronic lower respiratory diseases; Z90.6 Acquired absence of other parts of urinary tract

== ENCOUNTER 2016-12-07 17:25 | Observation (INO) | payer OTHER, MEDICAID ==
[2016-12-07 17:46] VITALS: BMI 27.3
[2016-12-07 17:51] LABS: ADD MANUAL DIFF? NO
--- NOTE | 2016-12-07 17:58 | ED PDOC ---
Arrival/HPI - General Time Seen by Provider: 12/07/16 17:55 Historian: Patient - History of Present Illness Narrative History of Present Illness (Text): 12/07/16 17:56 66 year old male presents to the emergency department whose past medical history includes hypertension, prostate cancer, presents to the emergency department after seizure like activity prior to arrival. Daughter states the patient was eating when he began shaking and "blood came out of his mouth." No history of seizures. PMD: Dr. 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 - Endocrine/Metabolic Hx Endocrine Disorders: No - Hematological/Oncological Hx Blood Transfusions: Yes Hx Blood Transfusion Reaction: No Hx Cancer: Yes (Prostate) - Integumentary Hx Dermatological Disorder: No - Musculoskeletal/Rheumatological Hx Musculoskeletal Disorders: No - Gastrointestinal Hx Gastrointestinal Disorders: Yes Hx Gastritis: Yes Hx Hemorrhoids: Yes - Genitourinary/Gynecological Hx Genitourinary Disorders: Yes (UROSTOMY BAG) Other/Comment: PENILE SURGERY (FOR ERECTION) - Psychiatric Hx Emotional Abuse: No Hx Physical Abuse: No Hx Substance Use: No - Surgical History Other/Comment: Prostate - Anesthesia Hx Anesthesia Reactions: No Hx Malignant Hyperthermia: No - Suicidal Assessment Feels Threatened In Home Enviroment: No Family/Social History - Physician Review Nursing Documentation Reviewed: Yes Family/Social History: Unknown Family HX Smoking Status: Never Smoked Hx Alcohol Use: Yes (OCCASIONAL WINE) Hx Substance Use: No Allergies/Home Meds Allergies/Adverse Reactions: Allergies No Known Allergies Allergy (Verified 12/07/16 17:58) Home Medications: Home Meds Medication Instructions Recorded Confirmed Unobtainable 12/01/16 12/07/16 Review of Systems - Physician Review All systems were reviewed & negative as marked: Yes Physical Exam - Physical Exam Narrative Physical Exam (Text): - Review of Systems Constitutional: Normal. absent: Fatigue, Weight Change, Fevers Eyes: Normal ENT: Normal Respiratory: Normal absent: SOB, Cough, Sputum Cardiovascular: Normal absent: Chest pain, Palpitations, Syncope Gastrointestinal: Normal absent: Abdominal pain, Diarrhea, Nausea, Vomiting Genitourinary: Normal. absent: Dysuria, Frequency, Hematuria Musculoskeletal: Normal. absent: Arthralgias, Back Pain, Neck Pain Skin: Normal Neurological: Seizure absent: Focal Weakness Endocrine: Normal Hemo/Lymphatic: Normal Psychiatric: Normal - Physical exam Patient appears age appropriate, in no resp distress - Systems Exam Head: Present: Atraumatic, Normocephalic Pupils: Present: PERRL Extraocular Muscles: Present: EOMI Conjunctiva: Present: Normal Mouth: Present: Moist Mucous Membranes, Superficial bite perze to the tongue. Neck: Present: Normal Range of Motion. No: MIDLINE TENDERNESS, Paraspinal Tenderness Respiratory/Chest: Present: Clear to Auscultation, Good Air Exchange, Protecting airway. No: Respiratory Distress, Accessory Muscle Use, Tachypneic Cardiovascular: Present: Regular Rate and Rhythm, Normal S1, S2, Peripheral Pulses Present. No: Murmurs Abdomen: Present: Normal Bowel Sounds, No: Tenderness, Peritoneal Signs, Rebound, Guarding, Distention Back: Present: Normal Inspection. No: Midline Tenderness, Paraspinal Tenderness Upper Extremity: Present: Normal Inspection. No: Cyanosis, Edema Lower Extremity: Present: Normal Inspection. No: Edema Neurological: Present: GCS=15, cranial nerves II through XII fully intact with no cerebellar abnormality, neuro-sensory fully intact. No focal neurological deficits. Following commands without difficulty. Skin: Present: Warm, Dry, Normal Color. No: Rashes Lymphatic: Present: OX3, NI, NC Psychiatric: Present: Alert, not agitated Vital Signs Reviewed: Yes Vital Signs Temp Pulse Resp BP Pulse Ox 12/07/16 17:48 97.3 F L 117 H 20 134/89 98 Temperature: Afebrile Blood Pressure: Normal Pulse: Tachycardic Respiratory Rate: Normal Appearance: Positive for: Well-Appearing, Non-Toxic, Comfortable Pain Distress: None Mental Status: Positive for: Alert and Oriented X 3 Finger Stick Blood Glucose: 98 Medical Decision Making ED Course and Treatment: Impression: 66 year old male presents to the emergency department whose past medical history includes hypertension, prostate cancer, presents to the emergency department after seizure like activity prior to arrival. On physical exam, patient has superficial bite perez to the tongue. No focal neurological deficits on examination, however appears slightly postictal Differential Diagnosis include but are not limited to: Seizure Plan: -- CT Head, EKG, Chest X-ray -- Labs -- Reassess and disposition Prior Visits: Notes and results from previous visits were reviewed. Patient was discharged from the hospital on 12/04/16 after being treated for abdominal pain. Progress Notes: seen in the ER by Dr. Lopez, asked to admit to her service with Dr. Davis on consult family aware of and agree with plan EKG interpreted by ER physician. Normal sinus. No ST-segment elevations. Normal intervals. Chest xray interpreted by ED physician shows no pneumothorax, no cardiomegaly, no infiltrates 12/07/16 19:58 On reevaluation, patient is alert and awake, speaking without difficulty, no focal neurological deficits. EXAM: CT Head Without Intravenous Contrast CLINICAL HISTORY: 66 years old, male; Pain; Headache; Headache not specified; Additional info: CAMPBELL x2 weeks FINDINGS: BRAIN: Areas of low density in the periventricular white matter bilaterally, most likely representing mild chronic small vessel ischemic changes. Diffuse, age-related cortical atrophy and ventriculomegaly. Physiologic basal ganglia calcification. No significant acute abnormality identified. No acute hemorrhage seen within the brain. No acute extra-axial fluid collections visualized. No evidence of significant mass effect within the brain. VENTRICLES: See above. BONES/JOINTS: No acute fractures or other acute bony abnormality noted. SOFT TISSUES: No acute abnormality of the visualized soft tissues is seen. SINUSES: Tiny fluid level in the right sphenoid sinus, suspicious for minimal acute sinusitis. Remaining visualized paranasal sinuses appear clear. MASTOID AIR CELLS: Mastoid air cells appear clear. IMPRESSION: - No acute findings seen within the brain. - See above for remaining findings. Dictated and Authenticated by: Dorothy Stuart MD 12/07/2016 8:25 PM Eastern Time ([place] & [place]) - Lab Interpretations Lab Results: 12/07/16 17:40 12/07/16 17:40 Lab Results 12/07/16 17:40: Sodium 140, Potassium 4.2, Chloride 105, Carbon Dioxide 20 L, Anion Gap 19, BUN 17, Creatinine 1.1, Est GFR ( Amer) > 60, Est GFR (Non- Af Amer) > 60, Random Glucose 78, Calcium 9.0, Total Bilirubin 0.3, AST 44, ALT 51, Alkaline Phosphatase 105, Lactate Dehydrogenase 587, Total Creatine Kinase 64, Troponin I < 0.01, Total Protein 7.3, Albumin 3.7, Globulin 3.6, Albumin/ Globulin Ratio 1.0 L 12/07/16 17:40: PT 11.4, INR 1.06, APTT 19.4 L 12/07/16 17:40: WBC 8.8 D, RBC 4.21, Hgb 12.0 L, Hct 36.7 L, MCV 87.2, MCH 28.5 , MCHC 32.7, RDW 16.5 H, Plt Count 279, MPV 11.2 H, Gran % 60.2, Lymph % (Auto) 26.9, [place] % (Auto) 7.3 H, Eos % (Auto) 5.3 H, Baso % (Auto) 0.3, Gran # 5.27, Lymph # 2.4, [place] # 0.6, Eos # 0.5, Baso # 0.03 - RAD Interpretation Radiology Orders: 12/07/16 17:55 HEAD W/O CONTRAST [CT] Stat CHEST PORTABLE [RAD] Stat - Medication Orders Current Medication Orders: Discontinued Medications Ondansetron HCl (Zofran Inj) 4 mg IVP STAT STA Stop: 12/07/16 20:12 Last Admin: 12/07/16 20:19 Dose: 4 mg - Scribe Statement The provider has reviewed the documentation as recorded by the Kaitlynn Gilmore Provider Scribe Attestation: All medical record entries made by the Kaitlynn were at my direction and personally dictated by me. I have reviewed the chart and agree that the record accurately reflects my personal performance of the history, physical exam, medical decision making, and the department course for this patient. I have also personally directed, reviewed, and agree with the discharge instructions and disposition. Disposition/Present on Arrival - Present on Arrival Any Indicators Present on Arrival: No History of DVT/PE: Yes History of Uncontrolled Diabetes: No Urinary Catheter: No History Surgical Site Infection Following: None - Disposition Have Diagnosis and Disposition been Completed?: Yes Diagnosis: Seizure Disposition: HOSPITALIZED Disposition Time: 19:55 Patient Plan: Admission Patient Problems: Current Active Problems Problem Status Onset Seizure Acute Condition: FAIR
[2016-12-07 18:01] LABS: BASO # 0.03 K/mm3 (0.0-2.0); BASO % 0.3 % (0.0-3.0); EOS # 0.5 (0.0-0.7); EOS % 5.3 % (1.5-5.0); GRAN # 5.27 (1.4-6.5); GRAN % 60.2 % (50.0-68.0); HEMATOCRIT 36.7 % (42.0-52.0); LYMPH # 2.4 (1.2-3.4); LYMPH % 26.9 % (22.0-35.0); MEAN CELL VOLUME 87.2 fL (80.0-105.0); MEAN CORPUSCULAR HEMOGLOBIN 28.5 pg (25.0-35.0); MEAN CORPUSCULAR HGB CONC 32.7 g/dl (31.0-37.0); MEAN PLATELET VOLUME 11.2 fl (7.0-11.0); MONO # 0.6 (0.1-0.6); MONO % 7.3 % (1.0-6.0); PLATELET COUNT 279 10^3/uL (120.0-450.0); RED CELL DISTRIBUTION WIDTH 16.5 % (11.5-14.5); WHITE BLOOD COUNT 8.8 10^3/ul (4.5-11.0)
[2016-12-07 18:06] LABS: ALKALINE PHOSPHATASE 105 U/L (38-133); ALT/SGPT 51 U/L (7-56); AST/SGOT 44 U/L (15-59); BILIRUBIN,TOTAL 0.3 mg/dL (0.2-1.3); BLOOD UREA NITROGEN 17 mg/dL (7-21); CARBON DIOXIDE 20 mmol/L (21-33); CHLORIDE 105 mmol/L (98-107); GFR AFRICAN-AMERICAN > 60; GLUCOSE,RANDOM 78 mg/dL (70-110); POTASSIUM 4.2 mmol/L (3.6-5.0); SODIUM 140 mmol/L (132-148); TOTAL PROTEIN 7.3 g/dL (5.8-8.3)
[2016-12-07 18:16] LABS: INR 1.06 (0.93-1.08); PARTIAL THROMBOPLASTIN TIME 19.4 Seconds (23.7-30.8)
[2016-12-07 18:17] LABS: TROPONIN I < 0.01 ng/mL
--- NOTE | 2016-12-07 20:25 | CT ---
EXAM: CT Head Without Intravenous Contrast CLINICAL HISTORY: 66 years old, male; Pain; Headache; Headache not specified; Additional info: CAMPBELL x2 weeks TECHNIQUE: Axial computed tomography images of the head/brain without intravenous contrast. This CT exam was performed using one or more of the following dose reduction techniques: automated exposure control, adjustment of the mA and/or kV according to patient size, and/or use of iterative reconstruction technique. EXAM DATE/TIME: 12/07/2016 5:55 PM COMPARISON: Prior head CT of 10/02/2016 FINDINGS: BRAIN: Areas of low density in the periventricular white matter bilaterally, most likely representing mild chronic small vessel ischemic changes. Diffuse, age-related cortical atrophy and ventriculomegaly. Physiologic basal ganglia calcification. No significant acute abnormality identified. No acute hemorrhage seen within the brain. No acute extra-axial fluid collections visualized. No evidence of significant mass effect within the brain. VENTRICLES: See above. BONES/JOINTS: No acute fractures or other acute bony abnormality noted. SOFT TISSUES: No acute abnormality of the visualized soft tissues is seen. SINUSES: Tiny fluid level in the right sphenoid sinus, suspicious for minimal acute sinusitis. Remaining visualized paranasal sinuses appear clear. MASTOID AIR CELLS: Mastoid air cells appear clear. IMPRESSION: - No acute findings seen within the brain. - See above for remaining findings.
[2016-12-07] MEDS ORDERED: Acetaminophen 650mg/20.3ml solution UD PO STA (22:19)
--- NOTE | 2016-12-07 23:02 | CP.PCM.PN ---
Subjective - Date & Time of Evaluation Date of Evaluation: 12/07/16 Time of Evaluation: 23:01 - Subjective Subjective: Patient was seen at bedside. Spoke to patient with help of family members. Has complaint of swelling in tongue.Has come after he has had a seizure. He had beaten tongue during seizre. Has no other complaints. Medical record was reviewed. This 66 year old male was admitted with abdominal pain, H.Pylori gastritis. Has PMH of prostate cancer, S/P cystectomy, ileal conduit,urinary diversion,TURP , penile implant. Objective - Vital Signs/Intake and Output Vital Signs (last 24 hours): Temp Pulse Resp BP Pulse Ox 97.3 F L 69 17 131/82 99 12/07/16 17:48 12/07/16 21:19 12/07/16 21:19 12/07/16 21:19 12/07/16 21:19 - Labs Labs: PT 11.4 Seconds (9.9-11.8) 12/07/16 17:40 INR 1.06 (0.93-1.08) 12/07/16 17:40 APTT 19.4 Seconds (23.7-30.8) L 12/07/16 17:40 - Constitutional Appears: Well, No Acute Distress - Head Exam Head Exam: ATRAUMATIC, NORMAL INSPECTION, NORMOCEPHALIC - Eye Exam Additional comments: Left eye bulbar conjunctiva has sub conjunctival hemorrhage - ENT Exam ENT Exam: Normal External Ear Exam Additional comments: left side of tongue is somewhat swollen, contused. - Neck Exam Neck Exam: Normal Inspection - Respiratory Exam Respiratory Exam: NORMAL BREATHING PATTERN - Cardiovascular Exam Cardiovascular Exam: absent: JVD - GI/Abdominal Exam GI & Abdominal Exam: absent: Distended Additional comments: colostomy bag present. - Rectal Exam Rectal Exam: Deferred - Extremities Exam Extremities Exam: Normal Inspection - Back Exam Back Exam: NORMAL INSPECTION - Neurological Exam Neurological Exam: Alert, Oriented x3 - Psychiatric Exam Psychiatric exam: Normal Affect, Normal Mood - Skin Skin Exam: Normal Color Assessment and Plan - Assessment and Plan (Free Text) Assessment: Seizure disorder. S/P seizure. Tongue biting. History prostate cancer. Plan: Tylenol 650 mg PO now. Continue present management.
[2016-12-07] MEDS ORDERED: HYDROmorphone 0.5 mg/0.5 ml ISec IVP PRN (23:07)
[2016-12-07] MEDS ORDERED: Phenytoin 250 mg/5 ml Inj IVP ONE (23:20)
[2016-12-07] MEDS ORDERED: Phenytoin 1,000 MG in Sodium Chloride 0.9% 100 ML IVPB STA (23:28)
--- NOTE | 2016-12-08 07:11 | HP ---
CHIEF COMPLAINT: Seizures. HISTORY OF PRESENT ILLNESS: The patient, my private patient, is 66 years old with past medical histo ry of multiple medical problems, came to the Emergency Room, history of hypertension, prostate cancer , was brought due to seizure-like activity prior to arrival. The daughter, Tarsha, stated that the patient was eating when he began shaking and blood came out of the tongue. The family was around. Family called 911. I saw the movie because in that food place, there was camera and they got the mov ie from them. It looks like grand mal seizures. PAST MEDICAL HISTORY: Hypertension, left kidney not working since . Left ileal conduit bag. G astroesophageal reflux disease, gastritis, hemorrhoids. Urostomy bag, penile surgery. FAMILY HISTORY: Father and mother noncontributory. HABITS: Never smoked. Alcohol socially. No drugs. ALLERGIES: The patient is not allergic with any medications. HOME MEDICATIONS: Reviewed by me. REVIEW OF SYSTEMS: The patient was seen and examined on the bedside in the Emergency Room. Son, lynsey solomon, and brother were standing on the bedside also. It looks like postictal, awake, but confu sed. No shortness of breath. No coughing, no sputum production. No chest pain, no palpitation, no abdominal pain, no diarrhea, no nausea or vomiting. No dysuria, no frequency or hematuria. No arthr algia, back pain or neck pain. Feeling fatigue and tired. PHYSICAL EXAMINATION: VITAL SIGNS: Temperature 97.3, pulse 117, respiratory rate 20, blood pressure 134/89, pulse ____ 98. HEENT: Head normocephalic, atraumatic. Eyes: PERRLA. Extraocular muscles intact. Conjunctivae cl ear. Nose patent. Mucous membranes moist. NECK: Supple. No carotid bruit, JVD or thyromegaly. CHEST: Bilaterally symmetrical. HEART: S1, S2 positive. LUNGS: Clear to auscultation. ABDOMEN: Soft. Bowel sounds positive. No organomegaly. EXTREMITIES: No edema, no cyanosis. NEUROLOGIC: The patient is awake, but looks very lethargic, like postictal. LABORATORY DATA: White blood cells 8.8, hemoglobin 12.0, hematocrit 36.7, and platelets 217. Sodium 140, potassium 4.2, BUN 17, creatinine 1.1, and glucose 78. ASSESSMENT AND PLAN: The patient is a 66-year-old male with anemia, history of deep venous thrombosi s or pulmonary embolism as per patient, new onset of seizures, history of hypertension, prostate canc er, was recently discharged from [facility] because of abdominal pain and looks like gastritis. Left kidney not working since . Urostomy bag, left ileal conduit bag. History of anemia, blo od transfusion, gastritis, hemorrhoids, penile surgery. Urostomy bag. We admitted the patient. Did CAT scan of the head, no acute finding seen within the brain. Tiny fluid level in the right sphenoi d sinus suspicious for minimal acute serositis. Remaining visualized sinuses appear clear. Mastoid air cell appears clear. We called a neurology consult with Dr. Davis. EEG for tomorrow. Gastroin testinal and deep venous thrombosis prophylaxis. Seizure precautions. We will follow up. Catherine Lopez MD cc: [id number] TT: 12/08/2016 07:11:26 tn
--- NOTE | 2016-12-08 07:55 | RAD ---
HISTORY: cough COMPARISON: No prior. FINDINGS: LUNGS: No active pulmonary disease. PLEURA: No significant pleural effusion identified, no pneumothorax apparent. CARDIOVASCULAR: Normal. OSSEOUS STRUCTURES: No significant abnormalities. VISUALIZED UPPER ABDOMEN: Normal. OTHER FINDINGS: None. IMPRESSION: No active disease.
[2016-12-08] MEDS: cefTRIAXone 1 gm 1 GM/100 ML BAG IVPB SCH (10:55)
--- NOTE | 2016-12-08 19:17 | CON ---
DATE: 12/08/2016 CHIEF COMPLAINT: Seizure. HISTORY OF PRESENT ILLNESS: This is a 66-year-old man with history of hypertension, left kidney not working since , left ileal conduit bag, history of gastroesophageal reflux disease, history of g astritis, hemorrhoids, urostomy, history of prostate cancer, history of penile implant, history of ga stritis, who came to the hospital because he had seizure-like activity while at dinner. His daughter , Tarsha, said that he was eating, he began to shake and blood came out of his tongue and that he h ad bit his tongue. It looks like he was brought here for possible grand mal seizures. He CTA showed no acute intracranial abnormalities. EEG showed bilateral cerebral dysfunction. No epileptiform ac tivity. He is on Keppra 500 mg p.o. b.i.d. Currently, his labs are unremarkable. His B12 is 805. Blood pressure is on the lower side. PAST MEDICAL HISTORY: Hypertension, left kidney not working, left ileal conduit bag, history of pros gilbert cancer, gastroesophageal reflux disease, gastritis, urostomy bag, penile surgery. FAMILY HISTORY: Father and mother noncontributory. HABITS: Never smoked. No alcohol, no drugs. ALLERGIES: The patient is not allergic to any medications. CURRENT MEDICATIONS: Reviewed via nurses' reconciliation sheet. REVIEW OF SYSTEMS: A 14-point review of systems is negative except for the HPI. PHYSICAL EXAMINATION: VITAL SIGNS: Temperature afebrile, pulse rate is 69, blood pressure 118/89, respiratory rate of 18, oxygen 98% on room air. GENERAL: The patient is sitting up in bed in no acute distress. HEENT: Atraumatic, normocephalic. PERRLA. Extraocular muscles intact. NECK: Supple, no JVD, no adenopathy noted. LUNGS: Clear to auscultation. No adventitious sounds. HEART: S1, S2. Normal rate and rhythm. No murmurs, rubs, or gallops. ABDOMEN: Soft, nontender, nondistended. Bowel sounds are present. EXTREMITIES: No clubbing, no cyanosis. Peripheral pulses 2+ bilaterally. NEUROLOGIC: The patient is alert, oriented to person, place, month and year. Speech is fluent, with out any errors. Cranial nerves II through XII are intact. MOTOR: Moves all extremities equally, but has difficulty moving the lower extremities due to pain in his inner groin area, likely from post-seizure, myalgias. Toes are downgoing bilaterally. SENSORY: Decreased light touch and pinprick up the calves bilaterally. Decreased vibration of the t oes. DTRs 1+ throughout. COORDINATION AND GAIT: Deferred for now. LABORATORIES: Sodium is 140, potassium 4.2, chloride 105, carbon dioxide , BUN of 17, creatinin e 1.1, glucose of 78. ASSESSMENT AND PLAN: This is a 66-year-old man with history of hypertension, prostate cancer, histor y of penile implant, history of urostomy bag, history of TURP, penile implant, history of cystectomy, history of gastritis, who had a seizure while he was eating, likely generalized tonic-clonic type, h ad bit his tongue. His EEG showed bilateral cerebral dysfunction. No epileptiform activity. CT hea d showed no acute intracranial abnormality. The MRI of the brain with and without contrast is [facility] pending. Likely had a new onset seizure, likely from transient cerebral hypoperfusion since his blood pressures were initially on the lower side from his baseline. At this time, would recommend: 1. Continuing Keppra 500 mg p.o. b.i.d. 2. Seizure precautions. 3. Physical therapy to assess his lower leg extremity pain, likely from post-seizure myalgias. 4. We will get MRI of the brain with and without contrast to assess for any diffuse intracranial abn ormalities causing seizures. At this time, continue current present medical management. Likely would benefit from subacute rehabi litation. Thank you for this consult. Pawan Davis MD cc: [id number] TT: 12/08/2016 19:15:55 Confirmation # [id number] Dictation # [id number] veronica
--- NOTE | 2016-12-08 19:20 | EEG ---
DATE: 12/08/2016 CONDITION OF RECORDING: Drowsy. DIAGNOSIS: Seizures. MEDICATIONS: Ativan and Dilaudid. INTERPRETATION: This is a 16-channel international recording. The background activity was composed of 6 cycles per second. There was limited amount of beta activity 16-20 cycles per second seen in th is recording. There was increased amount of theta activity 5-7 cycles per second seen in this tracin g. Drowsiness was characterized by mixed beta and theta activity. Sleep was characterized by vertex transient waves, sleep spindles and bilateral slowing. Photic stimulation showed no change in the t racing. No paroxysmal activity is noted in this recording. CONCLUSION: This is EEG due to presence of mild diffuse slowing throughout the EEG consistent with mild bilateral cerebral dysfunction. No evidence of any epileptiform activity. Please clinical ly correlate. Pawan Davis MD cc: [id number] TT: 12/08/2016 19:19:32 Confirmation # [id number] Dictation # [id number] mn
--- NOTE | 2016-12-09 02:03 | CARD ---
APPROVED REPORT EKG Measurement Heart [id number] <Conclusion> Normal sinus rhythm Left anterior fascicular block Prolonged QT Abnormal ECG
--- NOTE | 2016-12-09 06:15 | PN ---
DATE: 12/08/2016 SUBJECTIVE: The patient was seen and examined on the bedside, looks comfortable. No nausea, vomitin g, or diarrhea. No hematuria or hematochezia. No headache, dizziness. Having pain in the left leg on movement at hip area. is on the bedside. Length of time discussion done with the patient's , niece.. No nausea, vomiting, or diarrhea. No hematuria or hematochezia. No headache, no dizz iness. PHYSICAL EXAMINATION: VITAL SIGNS: Temperature 98.6, pulse 69, blood pressure 118/89, respiratory rate 18, oxygenation 98% on room air. HEENT: Head normocephalic, atraumatic. Eyes: PERRLA. Extraocular movements intact. Conjunctivae clear. Nose patent. Mucous membrane moist. NECK: Supple. No carotid bruit, JVD or thyromegaly. CHEST: Bilaterally symmetrical. HEART: S1, S2 positive. LUNGS: Clear to auscultation. ABDOMEN: Soft. Bowel sounds present. No organomegaly. EXTREMITIES: No edema, no cyanosis. Range of motion of left lower leg is decreased. NEUROLOGIC: The patient is awake, alert, moving all 4 extremities. No focal deficits. LABORATORY DATA: White blood cells 8.8, hemoglobin 12.0, hematocrit 36.7, and platelets 279. Sodium 140, potassium 4.2, BUN 17, creatinine 1.1. AST 44, ALT 51. ASSESSMENT AND PLAN: The patient is a 66 years old male with anemia, came with new onset seizures. Chest x-ray and pelvis done. Results are pending. Sleep awake EEG done, read by Dr. Pawan Davis. CAT scan of the head was done, seen by the neurologist, Dr. Davis. History of hypertension, left k emiliano is not working since childhood. Left ileal conduit bag. History of prostate cancer, gastroeso phageal reflux disease, gastritis, urostomy bag, penile surgery, history of transurethral resection of prostate, history of gastritis, had seizures when he was eating, like generalized tonic-clonic typ e; had tongue bite. EEG showed bilateral cerebral dysfunction, no epileptiform activity seen. CT of head showed no acute intracranial abnormality. The MRI of the brain with and without contrast is cu rrently pending. Likely has new onset seizure, likely from transient cerebral hypoperfusion since e blood pressures were initially on the lower side from the baseline. Dr. Davis recommended Keppra, seizure precautions, physical therapy to assess lower extremity pain. Maybe post-seizure myalgia. Continue present treatment. Discussion done with patient's and family member. Gastrointestinal and deep venous thrombosis prophylaxis. Repeat labs. We will follow up. Catherine Lopez MD cc: [id number] TT: 12/09/2016 06:14:42 Confirmation # [id number] Dictation # [id number] tn
[2016-12-09 06:44] VITALS: O2SAT 97
--- NOTE | 2016-12-09 08:47 | RAD ---
PROCEDURE: Left Hip X-ray Radiographs. AP view of the pelvis and AP/frogleg lateral views left hip performed. HISTORY: c/o pain during movement COMPARISON: None. FINDINGS: BONES: No evidence of acute displaced fracture nor dislocation. Left femoral head is appropriately located within the left acetabulum. JOINTS: Degenerative arthritic changes both hip joints. SOFT TISSUES: Normal. OTHER FINDINGS: In situ penile implant hardware. Metallic clips also seen overlying the true pelvis. Clinical correlation with surgical history. IMPRESSION: No acute fractures nor dislocations. 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 In situ penile implant hardware with metallic clips overlying the pelvis bilaterally. Clinic correlation with surgical history.
[2016-12-09] MEDS: cefTRIAXone 1 gm 1 GM/100 ML BAG IVPB SCH (09:34)
--- NOTE | 2016-12-09 12:10 | PN ---
DATE: 12/09/2016 CHIEF COMPLAINT: Follow up for seizures. SUBJECTIVE: The patient is seen at bedside. No acute distress. Following simple commands. He is o n Keppra 500 mg p.o. b.i.d. for seizure prophylaxis. No further seizures. MRI of the brain is pendi ng. Electrolytes are much more stable today. PAST MEDICAL HISTORY: Hypertension, left kidney not working, left ileal conduit bag, history of pros gilbert cancer, gastroesophageal reflux disease, gastritis, urostomy bag, penile surgery. FAMILY HISTORY: Noncontributory. SOCIAL HISTORY: No illicit drug use, smoking, or ETOH abuse. ALLERGIES: No known drug allergies. CURRENT MEDICATIONS: Reviewed via nurse's reconciliation sheet. REVIEW OF SYSTEMS: A 14-point review of systems is negative except for the HPI. PHYSICAL EXAMINATION: VITAL SIGNS: Temperature 98.2, pulse rate 65, blood pressure 130/83, respiratory rate of 18, oxygen saturation 97% on room air. GENERAL: The patient is sitting up in bed in no acute distress. HEENT: Atraumatic, normocephalic. PERRLA. Extraocular muscles intact. NECK: Supple, no JVD, no adenopathy noted. LUNGS: Clear to auscultation. No adventitious sounds. HEART: S1, S2, normal rate and rhythm. No murmurs, rubs, or gallops. ABDOMEN: Soft, nontender, nondistended. Bowel sounds are present. EXTREMITIES: No clubbing, no cyanosis. Peripheral pulses 2+ felt bilaterally. NEUROLOGIC: The patient is alert, oriented to person, place, month and year. Speech is fluent, with out any errors. Cranial nerves II through XII are intact. MOTOR: Moves all extremities equally, but has difficulty moving lower extremities due to pain in his inner groin. SENSORY: Decreased light touch and pinprick up to the calves bilaterally. Decreased vibration of th e toes. DEEP TENDON REFLEXES: 1+ throughout. COORDINATION: [id number] intact. LABORATORY DATA: Reviewed. ASSESSMENT AND PLAN: This is a 66-year-old man with past medical history of hypertension, prostate c ancer, history of penile implant, history of urostomy bag, history of transurethral prostatectomy, pe nile implant, history of cystectomy, history of gastritis who had a seizure while he was eating, like ly generalized tonic-clonic type and had bitten his tongue. His EEG showed features of bilateral cer ebral dysfunction, but no epileptiform activity. CAT scan of the head showed no acute intracranial a bnormalities. Currently, MRI of the brain is pending. His new onset seizure is likely from transien t cerebral hypoperfusion since his initial blood pressure was on the lower side. At this time, recom mend: 1. Continue with Keppra 500 mg p.o. b.i.d. 2. Seizure precautions. 3. Physical therapy plus subacute rehabilitation. 4. Will follow him as an outpatient for possibly a repeat EEG in the future. At this time, no furth er neurological workup needed at this time. Will sign off. Pawan Davis MD cc: [id number] TT: 12/09/2016 12:09:59 Confirmation # [id number] Dictation # [id number] elly
[2016-12-09] MEDS ORDERED: Gadodiamide 287 MG/ML VIAL (15ML) IV ONE (16:51)
--- NOTE | 2016-12-09 19:24 | MRI ---
PROCEDURE: MRI BRAIN WITH AND WITHOUT CONTRAST HISTORY: new seizure COMPARISON: Comparison is made to the previous CT dated 12/07/2016 TECHNIQUE: Multiplanar, multisequence MR images of the brain were obtained with and without intravenous contrast enhancement. FINDINGS: HEMORRHAGE: None DWI: No evidence of an acute or early subacute infarction. BRAIN PARENCHYMA: No mass,mass effect or edema. Mild atrophy is noted. There are few scattered nonspecific small foci of hyperintense T2 in the white matter may represent chronic microvascular ischemic disease. ENHANCEMENT: No abnormal intracranial enhancement. VENTRICLES: Unremarkable. No hydrocephalus. CRANIUM: Unremarkable. ORBITS: Grossly unremarkable. PARANASAL SINUSES/MASTOIDS: Clear VASCULAR SYSTEM: Skull base flow voids intact. OTHER FINDINGS: None . IMPRESSION: No evidence of acute pathology in the brain. No evidence of enhancing mass lesion or abnormal enhancement in the brain parenchyma. Mild atrophy. Nonspecific few scattered small foci of hyperintense FLAIR signal may represent chronic microvascular white matter ischemic disease.
--- NOTE | 2016-12-09 21:44 | PN ---
DATE: 12/09/2016 SUBJECTIVE: The patient was seen and examined on the bedside, not in acute distress. Follows simple commands. No nausea, vomiting, or diarrhea. No hematuria or hematochezia. Getting Keppra for seizures. No fever, no chills. MRI is done. EEG is done. Discussion done with patient's daughter, Tarsha. No fever, no chills. PHYSICAL EXAMINATION: VITAL SIGNS: Temperature 98.2, pulse 65, blood pressure 130/83, respiratory rate 18, oxygen saturation 97%. HEENT: Head normocephalic, atraumatic. Eyes: PERRLA. Extraocular muscles intact. Conjunctivae are clear. Nose patent. Mucous membranes moist. NECK: Supple. No carotid bruit, JVD or thyromegaly. CHEST: Bilaterally symmetrical. HEART: S1, S2 positive. LUNGS: Clear to auscultation. ABDOMEN: Soft. Bowel sounds present. Nontender. Has a urostomy bag. EXTREMITIES: No edema, no cyanosis. NEUROLOGIC: The patient is awake, alert. Follows simple commands. MEDICATIONS: Ativan, Dilaudid, Keppra, Protonix, Rocephin, Tylenol, Keppra. LABORATORY DATA: White blood cells 8.8, hemoglobin 12.0, hematocrit 36.7, platelets 279. Sodium 140, potassium 4.2, BUN 70, creatinine 1.1. AST 44, ALT 51. ASSESSMENT AND PLAN: The patient is a 66-year-old male who came with a new onset of seizures. Seen by Dr. Pawan Davis. Went for MRA of the head, x-ray of the hip and pelvis and EEG. History of hypertension. Left kidney not working since childhood, left ileal conduit bag, history of prostate cancer, gastroesophageal reflux disease, gastritis, urostomy bag, penile surgery. According to Dr. Pawan Davis, that EEG shows generalized tonic-clonic type and has tongue bite also. EEG shows bilateral cerebral dystrophy, but not epileptiform activity. CT scan of the head is reviewed, no acute intracranial abnormalities. MRA of the brain is done. According to neurology, his acute onset of seizure may be due to cerebral hypoperfusion since his initial blood pressure was on the lower side. We will continue Keppra, seizure precautions, physical therapy, and needs subacute rehabilitation. Will follow up him if maybe needs repeat EEG in the future. MRA of the brain showed no evidence of acute pathology in the brain. No evidence of enhancing mass lesion or abnormal enhancement in the brain parenchyma, mild atrophy, known specific few scattered small foci of hypertension flare. Flare signal may represent chronic microvascular white matter ischemic disease. X-ray of the hip and pelvis showed no acute fracture or dislocation, DJD and arthritis changes in both hips , in situ penile implant hardware with metallic clips overlying the pelvis bilaterally. Clinicaly corelating with surgery history, will give physical therapy. Maybe will take patient to subacute rehab. We will follow up. Catherine Lopez MD cc: [id number] TT: 12/09/2016 21:43:22 Confirmation # [id number] Dictation # [id number] elly MTDNorma
[2016-12-10 05:36] VITALS: RESP 20
[2016-12-10] MEDS ORDERED: Pantoprazole 40 mg EC Tab PO SCH (07:30)
[2016-12-10] MEDS: cefTRIAXone 1 gm 1 GM/100 ML BAG IVPB SCH (10:03)
[2016-12-10 18:35] VITALS: BP 119/83; PULSE 68; TEMP 98.6
--- NOTE | 2016-12-11 12:50 | DS ---
CHIEF COMPLAINT: Seizure. HISTORY OF PRESENT ILLNESS: The patient, my private patient, a 66-year-old male with past medical history of multiple medical problems, was brought to the Emergency Room due to because he had seizure when he was eating with his family. He has tongue bite, was shaking. Family was around. They called 911. I saw the patient in the Emergency Room and the patient's family has video of patient's seizures. We admitted the patient. CAT scan of the head was done, sleep/awake encephalography done, hip/pelvis x-ray done, brain MRI done. Reviewed by me. Seen by Dr. Pawan Davis. Today, patient was cleared for discharge. Discharge Keppra prescription given by Mehreen, nurse practitioner. Follow up with the neurologist and primary care physician. PAST MEDICAL HISTORY: Hypertension, left kidney not working since , left ileal conduit bag, gastroesophageal reflux disease, gastritis, hemorrhoids, urostomy bag, penile surgery. FAMILY HISTORY: Father and mother noncontributory. HABITS: Never smoked, alcohol occasionally, no drugs. ALLERGIES: The patient is not allergic with any medications. HOME MEDICATIONS: Reviewed by me. REVIEW OF SYSTEMS: The patient seen and examined on the bedside, looks comfortable. No nausea, vomiting, diarrhea. No hematuria, no hematochezia. No swelling of the legs. No chest pain, no palpitation. No headache, no dizziness. PHYSICAL EXAMINATION: VITAL SIGNS: Temperature is 98.6, pulse 58, respiratory rate 20, blood pressure 119/93. HEENT: Head normocephalic and atraumatic. Eyes PERRLA. Extraocular muscles intact. Conjunctivae clear. Nose patent. Mucous membranes moist. NECK: Supple. No carotid bruit, no JVD, no thyromegaly. CHEST: Bilaterally symmetrical. HEART: S1, S2 positive. LUNGS: Clear to auscultation. ABDOMEN: Soft. Bowel sounds positive. No organomegaly. EXTREMITIES: No edema, no cyanosis. NEUROLOGIC: The patient is awake, alert, moving all 4 extremities, no focal deficit. MEDICATIONS GIVEN: Ativan, Dilaudid, Keppra, Protonix, Rocephin, Tylenol. LABORATORIES: White blood cells 8.8, hemoglobin 12.0, hematocrit 36.7, platelets 279. PT 11.4, INR 1.06, PTT 19.4. Sodium 140, potassium 4.2, BUN noted , creatinine 1.1. ASSESSMENT AND PLAN: The patient is a 66-year-old male with anemia, has new onset seizures, history of multiple medical problems. CAT scan of the head, MRI and EEG reviewed. Neurologist saw the patient. The patient has past medical history of hypertension, prostate cancer, history of penile implant, history of urostomy bag, history of transurethral prostatectomy, history of gastritis, seizures while he was eating, looks like generalized tonic-clonic type and had bitten his tongue. His EEG showed features of bilateral cerebral dysfunction, but no epileptiform activity. CAT scan of the head showed no acute intracranial abnormalities. MRI of the brain is also benign. Neurologist signed off the case and patient is stable. During hospitalization, no more seizures. Discharged home. Follow up with the neurologist and primary care physician. Continue Keppra 500 b.i.d., seizure precautions. Physical therapy as outpatient. X-ray done is negative. Now, patient does not have more pain in the hips. Catherine Lopez MD cc: [id number] TT: 12/11/2016 09:14:50 en MTDD
== END 2016-12-10 22:24 | disposition home or self-care (01) ==
LOC: ED 17:25 → ERH 19:55 → INTOOBSV 19:55 → ERH 20:48 → 2RSO 21:47
PROVIDERS: ADMIT Internal Medicine; ATTEND Internal Medicine
DX: R56.9 Unspecified convulsions (principal); K29.70 Gastritis, unspecified, without bleeding; B96.81 Helicobacter pylori [H. pylori] as the cause of diseases classified elsewhere; D64.9 Anemia, unspecified; Z86.718 Personal history of other venous thrombosis and embolism; Z86.711 Personal history of pulmonary embolism; I10 Essential (primary) hypertension; Z85.46 Personal history of malignant neoplasm of prostate; K21.9 Gastro-esophageal reflux disease without esophagitis; Z96.0 Presence of urogenital implants; K64.9 Unspecified hemorrhoids; N28.9 Disorder of kidney and ureter, unspecified; Z93.6 Other artificial openings of urinary tract status; R40.2412 Glasgow coma scale score 13-15, at arrival to emergency department
CPT/HCPCS: 70450; 70553; 71010; 73502; 80053; 82550; 83615; 84484; 85025; 85610; 85730; 93005; 95812; 96374; 99285; A9579; C9113; G0378; J0696; J1165; J2405

== ENCOUNTER 2017-02-06 10:56 | Inpatient (IN) | payer OTHER ==
[2017-02-06 11:27] VITALS: BMI 29.7
[2017-02-06] MEDS ORDERED: DiphenhydrAMINE 50 mg/ml Inj IVP STA (12:13)
[2017-02-06 12:31] LABS: BASO # 0.03 K/mm3 (0.0-2.0); BASO % 0.4 % (0.0-3.0); EOS # 0.3 (0.0-0.7); EOS % 3.2 % (1.5-5.0); GRAN # 5.98 (1.4-6.5); GRAN % 70.8 % (50.0-68.0); LYMPH # 1.5 (1.2-3.4); LYMPH % 17.6 % (22.0-35.0); MEAN CELL VOLUME 87.3 fL (80.0-105.0); MEAN CORPUSCULAR HEMOGLOBIN 29.5 pg (25.0-35.0); MEAN CORPUSCULAR HGB CONC 33.8 g/dl (31.0-37.0); MEAN PLATELET VOLUME 10.6 fl (7.0-11.0); MONO # 0.7 (0.1-0.6); PLATELET COUNT 193 10^3/uL (120.0-450.0); RBC 4.41 10^6/uL (3.5-6.1); WHITE BLOOD COUNT 8.5 10^3/ul (4.5-11.0)
--- NOTE | 2017-02-06 12:33 | ED PDOC ---
Arrival/HPI - General Historian: Patient - History of Present Illness Time/Duration: > week (worsening over 6 weeks) Symptom Course: Worsening Quality: Aching, Stabbing, Burning Severity Level: 6 - General Chief Complaint: Abdominal Pain Time Seen by Provider: 02/06/17 11:27 - History of Present Illness Narrative History of Present Illness (Text): 02/06/17 12:16 66-year-old male with a history of prostate cancer and urostomy presents today with continued worsening lower abdominal pain. Subjective fevers at home. No chest pain or shortness of breath. Patient states he also woke up today with swelling of the upper lip. Patient states this happened to him 3 years ago. Patient states that he did start new medications prescribed by his primary care physician recently but he is not sure of the name of them. Patient also states that he did take a 500 mg penicillin last night. He denies dizziness or weakness. Denies chest pain or shortness of breath. Denies cough. Denies nausea or vomiting. No other complaints (Azoia,Anna T) Past Medical History - Provider Review Nursing Documentation Reviewed: Yes - Travel History Have you recently traveled outside [place] w/in the past 3 mons?: No - Infectious Disease Hx of Infectious Diseases: None - Tetanus Immunization Tetanus Immunization: Unknown - Cardiac Hx Hypertension: Yes - Pulmonary Hx Respiratory Disorders: No - Neurological Hx Neurological Disorder: Yes Hx Dizziness: Yes Other/Comment: Dizzyness, periods of loss of consciences - HEENT Hx HEENT Disorder: No - Renal Hx Renal Disorder: Yes (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 - Endocrine/Metabolic Hx Endocrine Disorders: No - Hematological/Oncological Hx Cancer: Yes (Prostate) - Integumentary Hx Dermatological Disorder: No - Musculoskeletal/Rheumatological Hx Falls: No - Gastrointestinal Hx Gastrointestinal Disorders: Yes - Genitourinary/Gynecological Hx Genitourinary Disorders: Yes (UROSTOMY BAG) Other/Comment: PENILE SURGERY (FOR ERECTION) - Psychiatric Hx Emotional Abuse: No Hx Physical Abuse: No Hx Substance Use: No - Surgical History Other/Comment: Prostate - Anesthesia Hx Anesthesia Reactions: No Hx Malignant Hyperthermia: No - Suicidal Assessment Feels Threatened In Home Enviroment: No Family/Social History - Physician Review Nursing Documentation Reviewed: Yes Family/Social History: Unknown Family HX Smoking Status: Former Smoker Hx Alcohol Use: No Hx Substance Use: No Allergies/Home Meds Allergies/Adverse Reactions: Allergies No Known Allergies Allergy (Verified 12/07/16 17:58) Review of Systems - Review of Systems Constitutional: absent: Fatigue, Fevers ENT: Other (facial swelling) Respiratory: absent: SOB, Cough Cardiovascular: absent: Chest Pain, Palpitations Gastrointestinal: Abdominal Pain. absent: Nausea, Vomiting Musculoskeletal: absent: Arthralgias, Back Pain Skin: absent: Rash, Pruritis Neurological: absent: Headache, Dizziness Psychiatric: absent: Anxiety, Depression Physical Exam Vital Signs Reviewed: Yes Temperature: Afebrile Blood Pressure: Normal Pulse: Regular Respiratory Rate: Normal Appearance: Positive for: Well-Appearing, Non-Toxic, Comfortable Pain Distress: None Mental Status: Positive for: Alert and Oriented X 3 - Systems Exam Head: Present: Atraumatic, Swelling (+ swelling upper lip). No: Tenderness, Contusion, Ecchymosis, Abrasion, Laceration Mouth: Present: Moist Mucous Membranes. No: Dry, Drooling Pharnyx: Present: Normal. No: ERYTHEMA, EXUDATE, TONSILS ENLARGED, Peritonsilar Swelling, Uvular Deviation, Muffled/Hoarse Voice, Strider, Soft Palate/Uvular Edema Nose (External): Present: Atraumatic Nose (Internal): Present: Normal Inspection Neck: Present: Normal Range of Motion, Trachea Midline Respiratory/Chest: Present: Clear to Auscultation, Good Air Exchange. No: Respiratory Distress, Accessory Muscle Use Cardiovascular: Present: Regular Rate and Rhythm, Normal S1, S2. No: Murmurs Abdomen: Present: Tenderness, Guarding (voluntary), Ostomy Tubes (urostomy tube noted; yellow urine.). No: Distention, Rebound Back: Present: Normal Inspection Upper Extremity: Present: Normal ROM Lower Extremity: Present: Normal ROM Neurological: Present: GCS=15, Gait Normal Skin: Present: Warm, Dry Psychiatric: Present: Alert, Oriented x 3 Vital Signs Temp Pulse Resp BP Pulse Ox 02/06/17 18:50 98 F 75 19 129/75 95 02/06/17 13:46 98.3 F 63 18 136/81 96 02/06/17 11:20 97.4 F L 67 20 133/89 96 Medical Decision Making ED Course and Treatment: I was available for consultation during PA evaluation. The chart was reviewed by me, and I agree with disposition. The documented history was done by the physician pipe supervisor. The documented physical exam was done by the physician pipe supervisor. The documented procedures were done by the physician pipe supervisor. (Paulo Garcia) 02/06/17 12:47 Patient is nontoxic well appearing with stable vital signs presenting with abdominal pain and allergic reaction pt given solumedrol, pepcid and benadryl IV for allergic reaction. pt states this allergic reaction has been occurring occasionally. unsure of cause. pt denies allergy to PCN. he states he has taken it in the past without any reaction. CBC: wnl CMP: bun elevated Amylase wnl Lipase wnl Urinalysis + leukocytes, + bacteria CAT scan FINDINGS: LOWER THORAX: There is a bulla in the right middle lobe and subsegmental atelectasis in both lower lobes. LIVER: The liver is normal in size and there is homogeneous enhancement. No gross lesion or ductal dilatation. GALLBLADDER AND BILE DUCTS: There are no calcified gallstones. PANCREAS: The pancreas is normal in size and there is homogeneous enhancement. No gross lesion or ductal dilatation. SPLEEN: The spleen is normal in size. ADRENALS: Both adrenal glands are normal in size without discrete nodule. KIDNEYS AND URETERS: Both kidneys are normal in size and there is homogeneous enhancement. There is severe right and moderate left hydronephrosis, distention of the renal pelvis, severe right and moderate left diffuse dilatation of both ureteral use with left lower quadrant ileal conduit. VASCULATURE: No aortic aneurysm. BOWEL: The small bowel loops are normal in caliber. There are postsurgical changes in the left lower quadrant bowel lobes. There is large amount of stool in the colon. There is a left lower quadrant ileostomy. PERITONEUM: No free fluid. No free air. LYMPH NODES: No enlarged lymph nodes. BLADDER: Surgically absent REPRODUCTIVE: Unremarkable. BONES: No acute fracture. Multilevel degenerative disc disease, worse at L5-S1. 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 OTHER FINDINGS: None. IMPRESSION: 1. Severe right and moderate left hydronephrosis, severe right and moderate left hydroureter terminating in a left lower quadrant ileal conduit. 2. Status post left lower quadrant ileostomy. No evidence of bowel dilatation or obstruction. Constipation. Patient reassessment: pt feeling better after medications; pt still with swelling to upper lip. blood cultures pending. rocephin given IV. Discussed all results with patient in depth. case discussed with dr. garcía; will admit to med/surg for UTI, dehydration, hydronephrosis, abdominal pain, allergic reaction Impression: UTI, hydronephrosis, abdominal pain, allergic reaction admit to med/surg (Anna Sevilla) - Lab Interpretations Lab Results: 02/06/17 12:27 02/06/17 12:27 Lab Results 02/06/17 12:32: Urine Color Yellow, Urine Appearance Cloudy, Urine pH >=9.0, Ur Specific [place] <= 1.005, Urine Protein >=300 H, Urine Glucose (UA) Negative, Urine Ketones Negative, Urine Blood Moderate H, Urine Nitrate Negative, Urine Bilirubin Negative, Urine Urobilinogen 1.0 H, Ur Leukocyte Esterase Large H, Urine RBC 1 - 3, Urine WBC 5 - 10, Ur Epithelial Cells 0 - 2, Triple Phos Crystals Few, Urine Bacteria Small 02/06/17 12:27: WBC 8.5, RBC 4.41, Hgb 13.0 L, Hct 38.5 L, MCV 87.3, MCH 29.5, MCHC 33.8, RDW 15.0 H, Plt Count 193, MPV 10.6, Gran % 70.8 H, Lymph % (Auto) 17.6 L, [place] % (Auto) 8.0 H, Eos % (Auto) 3.2, Baso % (Auto) 0.4, Gran # 5.98, Lymph # 1.5, [place] # 0.7 H, Eos # 0.3, Baso # 0.03 02/06/17 12:27: Sodium 140, Potassium 4.7, Chloride 99, Carbon Dioxide 33, Anion Gap 13, BUN 22 H, Creatinine 1.3, Est GFR ( Amer) > 60, Est GFR ( Non-Af Amer) 55, Random Glucose 88, Calcium 9.3, Total Bilirubin 0.3, AST 24, ALT 21, Alkaline Phosphatase 107, Total Protein 7.6, Albumin 3.6, Globulin 4.0, Albumin/Globulin Ratio 0.9 L, Amylase 84, Lipase 37 - RAD Interpretation Radiology Orders: 02/06/17 11:29 CHEST PORTABLE [RAD] Stat 02/06/17 12:13 ABD & PELVIS IV CONTRAST ONLY [CT] Stat - Medication Orders Current Medication Orders: Discontinued Medications Diphenhydramine HCl (Benadryl) 25 mg IVP STAT STA Stop: 02/06/17 12:14 Last Admin: 02/06/17 13:07 Dose: 25 mg Famotidine (Pepcid) 20 mg IVP STAT STA Stop: 02/06/17 12:14 Last Admin: 02/06/17 13:13 Dose: 20 mg Ceftriaxone Sodium (Rocephin 1 Gram Ivpb) 1 g in 100 mls @ 200 mls/hr IVPB STAT STA PRN Reason: Protocol Stop: 02/06/17 19:00 Iohexol (Omnipaque 350 100 Ml) Confirm Administered Dose 350 mg .ROUTE .STK-MED ONE Stop: 02/06/17 14:12 Methylprednisolone (Solu-Medrol) 125 mg IVP STAT STA Stop: 02/06/17 12:14 Last Admin: 02/06/17 13:13 Dose: 125 mg Morphine Sulfate (Morphine) 4 mg IVP STAT STA Stop: 02/06/17 13:00 Last Admin: 02/06/17 13:16 Dose: 4 mg Disposition/Present on Arrival - Present on Arrival Any Indicators Present on Arrival: No History of DVT/PE: No History of Uncontrolled Diabetes: No Urinary Catheter: No History of Decub. Ulcer: No History Surgical Site Infection Following: None - Disposition Have Diagnosis and Disposition been Completed?: Yes Disposition Time: 16:45 Patient Plan: Admission - Disposition Diagnosis: UTI (urinary tract infection), Hydronephrosis, Dehydration, Allergic reaction Disposition: HOSPITALIZED Condition: FAIR
[2017-02-06 12:39] LABS: PH,URINE >=9.0 (4.7-8.0); URINE BILIRUBIN NEGATIVE (NEGATIVE); URINE BLOOD MODERATE (NEGATIVE); URINE GLUCOSE (UA) NEGATIVE (NEGATIVE); URINE LEUKOCYTE ESTERASE LARGE Leu/uL (NEGATIVE); URINE NITRATE NEGATIVE (NEGATIVE); URINE PROTEIN >=300 mg/dL (<30 mg/dL)
[2017-02-06 12:46] LABS: URINE APPEARANCE CLOUDY (CLEAR); URINE COLOR YELLOW (YELLOW)
[2017-02-06 12:54] LABS: URINE EPITHELIAL CELLS 0 - 2 /hpf (0-5)
[2017-02-06 12:55] LABS: URINE BACTERIA SMALL (NEG); URINE TRIPLE PHOSPHATE CRYSTAL FEW /hpf
[2017-02-06] MEDS ORDERED: Morphine 4 mg/ml ISec IVP STA (12:59)
[2017-02-06 13:31] LABS: ALB/GLOB RATIO 0.9 (1.1-1.8); ALBUMIN 3.6 g/dL (3.0-4.8); ALT/SGPT 21 U/L (7-56); AMYLASE 84 U/L (35-125); AST/SGOT 24 U/L (15-59); BLOOD UREA NITROGEN 22 mg/dL (7-21); CALCIUM 9.3 mg/dL (8.4-10.5); GFR AFRICAN-AMERICAN > 60; GFR NON-AFRICAN AMERICAN 55; LIPASE 37 U/L (23-300)
[2017-02-06] MEDS ORDERED: Iohexol 350 MG/100 ML VIAL ONE (14:11)
--- NOTE | 2017-02-06 17:16 | RAD ---
HISTORY: abd pain COMPARISON: Chest radiograph 11/28/2016. FINDINGS: LUNGS: No active pulmonary disease. PLEURA: No significant pleural effusion identified, no pneumothorax apparent. CARDIOVASCULAR: Mild cardiomegaly appears stable. OSSEOUS STRUCTURES: No significant abnormalities. VISUALIZED UPPER ABDOMEN: Normal. OTHER FINDINGS: None. IMPRESSION: No acute cardiopulmonary is appreciated. Stable cardiomegaly noted.
--- NOTE | 2017-02-06 17:23 | CT ---
PROCEDURE: CT Abdomen and Pelvis with contrast HISTORY: Abdominal pain COMPARISON: 12/01/2016 and 11/05/2016. TECHNIQUE: CT scan of the abdomen and pelvis was performed after intravenous administration of contrast. Oral contrast was not administered. Coronal and sagittal reformatted images were obtained. Radiation dose: Total exam DLP = 712.38 mGy-cm. This CT exam was performed using one or more of the following dose reduction techniques: Automated exposure control, adjustment of the mA and/or kV according to patient size, and/or use of iterative reconstruction technique. FINDINGS: LOWER THORAX: There is a bulla in the right middle lobe and subsegmental atelectasis in both lower lobes. LIVER: The liver is normal in size and there is homogeneous enhancement. No gross lesion or ductal dilatation. GALLBLADDER AND BILE DUCTS: There are no calcified gallstones. PANCREAS: The pancreas is normal in size and there is homogeneous enhancement. No gross lesion or ductal dilatation. SPLEEN: The spleen is normal in size. ADRENALS: Both adrenal glands are normal in size without discrete nodule. KIDNEYS AND URETERS: Both kidneys are normal in size and there is homogeneous enhancement. There is severe right and moderate left hydronephrosis, distention of the renal pelvis, severe right and moderate left diffuse dilatation of both ureteral use with left lower quadrant ileal conduit. VASCULATURE: No aortic aneurysm. BOWEL: The small bowel loops are normal in caliber. There are postsurgical changes in the left lower quadrant bowel lobes. There is large amount of stool in the colon. There is a left lower quadrant ileostomy. PERITONEUM: No free fluid. No free air. LYMPH NODES: No enlarged lymph nodes. BLADDER: Surgically absent REPRODUCTIVE: Unremarkable. BONES: No acute fracture. Multilevel degenerative disc disease, worse at L5-S1. 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 OTHER FINDINGS: None. IMPRESSION: 1. Severe right and moderate left hydronephrosis, severe right and moderate left hydroureter terminating in a left lower quadrant ileal conduit. 2. Status post left lower quadrant ileostomy. No evidence of bowel dilatation or obstruction. Constipation.
[2017-02-06] MEDS ORDERED: cefTRIAXone 1 gm 1 G/100 ML BAG IVPB STA ×2 (18:21→18:31)
[2017-02-06] MEDS ORDERED: Pneumococcal 23-Valent Vaccine IM ONE (22:50)
[2017-02-06] MEDS ORDERED: HYDROmorphone 0.5 mg/0.5 ml ISec IVP PRN (22:51)
[2017-02-07] MEDS ORDERED: cefTRIAXone 1 gm 1 GM/100 ML BAG IVPB SCH (10:00)
[2017-02-07] MEDS: MethylPREDNISolone 40 mg Vial IVP SCH ×2 (10:02→21:09)
--- NOTE | 2017-02-07 16:14 | CON ---
LOCATION: The patient was seen in room 568, bed 1. CHIEF COMPLIANT: Weakness from several days. HISTORY OF PRESENT ILLNESS: This is a 66-year-old [place] male with past medical history significant for prostate cancer who has a urostomy tube and also he has hypertension and history of seizures and history of DVT and hemorrhoids, was admitted through the emergency room, seen by Dr. Paulo Garcia in the emergency room and the patient was admitted because of worsening, aching and burning, also with lower abdominal pain and fevers at home. He denied any chest pain. He denied any shortness of breath. No headaches and no diarrhea or constipation. No bright red blood per rectum. No melena. PAST MEDICAL HISTORY: Significant for prostate cancer and ileostomy and urostomy tube and hypertension and seizures, DVT, and hemorrhoids. PAST SURGICAL HISTORY: Significant for urostomy placement. The patient also had a colonoscopy and a penile implant. ALLERGIES: The patient has no known allergies to any antibiotics. MEDICATIONS: Medications at home reveals the patient to be on Keppra for his seizures. PHYSICAL EXAMINATION: GENERAL: The patient is in bed, answering questions. VITAL SIGNS: Temperature of 98 and blood pressure is 129/75, respiratory rate of 20 and heart rate of 75. HEENT: Unremarkable. NECK: Supple. LUNGS: Decreased breath sounds. HEART: Normal S1 and S2. ABDOMEN: Soft, nontender. No rebound. No guarding. No masses. LABORATORY DATA: Reveals the patient's white count of 8.5, hemoglobin of 13, platelets of 193 and chemistry reveals BUN of 22, creatinine is 1.3. Last admission in November the creatinine was 1.1. Urinalysis reveals there is 5 to 10 WBCs, large leukocyte esterase, and the patient also had a CAT scan of the abdomen and pelvis which reveals severe right and moderate left hydronephrosis and with moderate left hydroureter and no evidence of bowel dilatation or obstruction. The patient has had a chest x-ray, which was negative, and review of orders reveals the blood cultures have been ordered, urine cultures have been ordered. The patient was started on ceftriaxone. ASSESSMENT AND PLAN: A 66-year-old male with prostate cancer and urostomy and hypertension and deep vein thrombosis and hemorrhoids with a urostomy bag and with penile implant, admitted with abdominal discomfort and 1. Severe right hydronephrosis *------* and left hydronephrosis with left hydroureter and must rule out underlying infection or urinary tract infection, although less likely with no fevers, no white count *------* significant finding in the urine and we will start empiric Maxipime pending blood cultures, urine cultures, discontinue the ceftriaxone and we will make further recommendations pending urology consultation and we will follow closely with you. Karel Vieyra MD [facility] # [id number]
[2017-02-07] MEDS: Cefepime 1gm in NS 100ml 1 GM/100 ML BAG IVPB SCH (21:20)
--- NOTE | 2017-02-08 09:19 | HP ---
CHIEF COMPLAINT: Abdominal pain. HISTORY OF PRESENT ILLNESS: The patient is a 66-year-old male with history of prostate cancer and urostomy tube, presented to the emergency room, complaining about worsening lower abdominal pain and subjective fevers at home. No chest pain, no shortness of breath. The patient states that he has also woke up today with swelling of the upper lip. The patient states that it had happened to him 3 years ago. The patient states that he has started new medications, but he does not remember the name. The patient also states that he took 500 mg of amoxicillin last night. He denies dizziness, weakness, chest pain, shortness of breath. No coughing. No hematuria, no hematochezia. No swelling of the leg. I saw the patient on the bedside, son was sitting on the bedside also. PAST MEDICAL HISTORY: Dizziness, left kidney not working since , urostomy/left renal conduit bag, history of prostate cancer, urostomy bag. Denies surgery for erection. FAMILY HISTORY: Father and mother noncontributory, HABITS: Former smoker. No alcohol, no drugs. ALLERGIES: THE PATIENT IS NOT ALLERGIC TO ANY MEDICATION. REVIEW OF SYSTEMS: The patient is examined at the bedside, looks comfortable. Son was sitting on the bedside also. Lot of time discussion done, education done. All questions answered. PHYSICAL EXAMINATION VITAL SIGNS: Temperature is 97.7, pulse 89, blood pressure 114/70, respiratory rate 20. HEENT: Head; normocephalic and atraumatic. Eyes; PERRLA. Extraocular muscles intact. Conjunctivae clear. Nose patent. Mucous membranes moist. NECK: Supple. No carotid bruits. No JVD or thyromegaly. CHEST: Bilaterally symmetrical. HEART: S1 and S2 positive. LUNGS: Clear to auscultation. ABDOMEN: Soft. Bowel sounds present. No organomegaly. EXTREMITIES: No edema, no cyanosis. NEUROLOGIC: The patient is awake and alert. Moving all four extremities. No focal deficit. LABORATORY DATA: White blood cell noted , hemoglobin 13.0, hematocrit 38.5, and platelets 193. Sodium 140, potassium 4.7, BUN 22, creatinine 1.3. AST 24, ALT 21. ASSESSMENT AND PLAN: The patient is 66 years old male with proteinuria, hematuria, UTI, anemia, seen by Dr. Vieyra infectious disease, history of prostate cancer and ileostomy and urostomy tune and hypertension, history of seizures, deep vein thrombosis, hemorrhoids, penile insertion, severe right hydronephrosis and left hydronephrosis with left hydroureter and small rule out underlying infectious or urinary tract problem. Right now, no fever, but as outpatient, the patient used to fever and used amoxicillin and failed outpatient treatment. Getting Maxipime depending blood culture and urine cultures. Discontinue ceftriaxone and we will make further recommendations pending urology consultation and follow up cultures, ID and urology consult call, GI/ prophylaxis. Repeat labs. Catherine Lopez MD MTDD
--- NOTE | 2017-02-08 09:52 | CP.PCM.CON ---
<Grazyna Zelaya - Last Filed: 02/08/17 09:45> History of Present Illness - History of Present Illness History of Present Illness: Gastroenterology Fellow/PGY5 Consult Note 66 year old male with history of Prostate cancer s/p radiation therapy, congenital left kidney dysfunction s/p TURP with ileal conduit for urinary diversion presenting with abdominal pain. Patient describes chronic intermittent Bilateral lower abdominal pain for the last five months occurring once a week for 4-5 hours straight. He attempted [place] relief leading to ER presentation. Notes normal daily bowel movement without straining and use of Miralax once daily. Admits to cloudy urine output in the last week with associated subjective fever. Aslo notes resolved upper lip swelling after taking Keppra followed by penicillin two hours later. Denies nausea, vomiting, hematemesis, heartburn, indigestion, hematochezia, melena, or unintentional weight loss. Prior colonoscopy 11/2016 with a 3mm transvere tubular adenoma,radiation proctitis, and internal hemorrhoids. Prior EGD and colonoscopy 06/2016 with H pylori gastritis s/p quadruple therapy and a 3mm tubular adenoma and proctitis. Family- multiple family members with Prostate cancer; denies colon cancer, stomach cancer Social- quit tobacco 34 years ago, social alcohol use, denies illicit drug use Surgery- TURP, end- to side anastomosis, ileal conduit, penile implant Review of Systems - Review of Systems Review of Systems: 12-point review of systems negative except for as above Past Patient History - Infectious Disease Hx of Infectious Diseases: None - Tetanus Immunizations Tetanus Immunization: Unknown - Past Medical History & Family History Past Medical History?: Yes - Past Social History Smoking Status: Former Smoker - CARDIAC Hx Hypertension: Yes - PULMONARY Hx Respiratory Disorders: No - NEUROLOGICAL Hx Neurological Disorder: Yes Hx Dizziness: Yes Hx Seizures: Yes Other/Comment: Dizzyness, periods of loss of consciences - HEENT Hx HEENT Problems: No - RENAL Hx Chronic Kidney Disease: Yes (LT KIDNEY NOT WORKING SINCE ) Other/Comment: UROSTOMY/ LT ILEAL CONDUIT 2010 - ENDOCRINE/METABOLIC Hx Endocrine Disorders: No - HEMATOLOGICAL/ONCOLOGICAL Hx Cancer: Yes (Prostate, tx with radiation) Other/Comment: prostatectomy, - INTEGUMENTARY Hx Dermatological Problems: No - MUSCULOSKELETAL/RHEUMATOLOGICAL Hx Falls: No - GASTROINTESTINAL Hx Gastrointestinal Disorders: Yes (gastritis, hemorrhoids) - GENITOURINARY/GYNECOLOGICAL Hx Genitourinary Disorders: Yes (UROSTOMY BAG) Other/Comment: PENILE SURGERY (FOR ERECTION) - PSYCHIATRIC Hx Substance Use: No - SURGICAL HISTORY Other/Comment: Prostate - ANESTHESIA Hx Anesthesia Reactions: No Hx Malignant Hyperthermia: No Meds Allergies/Adverse Reactions: Allergies Allergy/AdvReac Type Severity Reaction Status Date / Time No Known Allergies Allergy Verified 12/07/16 17:58 - Medications Medications: Current Medications Acetaminophen (Tylenol 325mg Tab) 650 mg PO Q4H PRN PRN Reason: Pain, moderate (4-7) Acetaminophen (Tylenol 325mg Tab) 650 mg PO Q4H PRN PRN Reason: Fever >100.4 F Famotidine (Pepcid) 40 mg PO [facility] Last Admin: 02/07/17 21:08 Dose: 40 mg Hydromorphone HCl (Dilaudid) 0.5 mg IVP Q4H PRN PRN Reason: Pain, Mild (1-3) Last Admin: 02/07/17 11:40 Dose: 0.5 mg Cefepime HCl (Maxipime 1gm) 1 gm in 100 mls @ 100 mls/hr IVPB Q12 [facility] PRN Reason: Protocol Stop: 02/16/17 22:01 Last Admin: 02/07/17 21:20 Dose: 100 mls/hr Levetiracetam (Keppra) 500 mg PO BID [facility] Last Admin: 02/07/17 17:46 Dose: 500 mg Loratadine (Claritin) 10 mg PO DAILY [facility] Last Admin: 02/07/17 10:00 Dose: 10 mg Methylprednisolone (Solu-Medrol) 40 mg IVP Q12 [facility] Last Admin: 02/07/17 21:09 Dose: 40 mg Montelukast Sodium (Singulair) 10 mg PO [facility] Last Admin: 02/07/17 21:08 Dose: 10 mg Ondansetron HCl (Zofran Inj) 4 mg IVP Q6 PRN PRN Reason: Nausea/Vomiting Last Admin: 02/07/17 11:39 Dose: 4 mg Physical Exam - Constitutional Appears: Non-toxic, No Acute Distress - Head Exam Head Exam: ATRAUMATIC, NORMOCEPHALIC - Eye Exam Eye Exam: EOMI, PERRL Pupil Exam: PERRL, Unequal. absent: Miosis, Mydriatic - ENT Exam ENT Exam: Mucous Membranes Moist, Normal Oropharynx - Neck Exam Neck exam: Positive for: Full Rom, Normal Inspection - Respiratory Exam Respiratory Exam: Clear to Auscultation Bilateral. absent: Rales, Rhonchi, Wheezes - Cardiovascular Exam Cardiovascular Exam: RRR, +S1, +S2. absent: Gallop, Rubs - GI/Abdominal Exam GI & Abdominal Exam: Normal Bowel Sounds, Soft, Tenderness. absent: Distended, Firm, Guarding, Organomegaly, Rigid Additional comments: B/L LQ tenderness to palpation - Extremities Exam Extremities exam: Positive for: full ROM. Negative for: pedal edema - Back Exam Back exam: CVA tenderness (L), CVA tenderness (R) - Neurological Exam Neurological exam: Alert - Psychiatric Exam Psychiatric exam: Normal Affect, Normal Mood - Skin Skin Exam: Dry, Intact, Normal Color, Warm Results - Vital Signs Recent Vital Signs: Last Vital Signs Temp 97.3 F L 02/08/17 08:00 Pulse 57 L 02/08/17 08:00 Resp 18 02/08/17 08:00 BP 130/83 02/08/17 08:00 Pulse Ox 97 02/08/17 08:00 - Labs Result Diagrams: 02/06/17 12:27 02/06/17 12:27 Assessment & Plan - Assessment and Plan (Free Text) Assessment: 66 year old male with history of Prostate cancer s/p radiation therapy, congenital left kidney dysfunction s/p TURP with ileal conduit for urinary diversion presenting with chronic, once weekly abdominal pain for five months. Active treatment of UTI, B/L hydronephrosis noted on CT A/P IV contrast. Prior colonoscopy 11/2016 with a 3mm transvere tubular adenoma,radiation proctitis, and internal hemorrhoids. Prior EGD and colonoscopy 06/2016 with H pylori gastritis s/p quadruple therapy and a 3mm tubular adenoma and proctitis. Plan: >abdominal pain likely 2/2 UTI, hydronephrosis >nephrology managing- follow up recommendaions >ID managing- on cefepime >constipation- start Miralax BID >counselled on increased water and fiber intake >discharged 11/2016 for simila rsymptoms- mesenteric ischemia ruled out on CTA >will follow clinical course <Duran Snell - Last Filed: 02/08/17 10:09> Meds - Medications Medications: Current Medications Acetaminophen (Tylenol 325mg Tab) 650 mg PO Q4H PRN PRN Reason: Pain, moderate (4-7) Acetaminophen (Tylenol 325mg Tab) 650 mg PO Q4H PRN PRN Reason: Fever >100.4 F Famotidine (Pepcid) 40 mg PO [facility] Last Admin: 02/07/17 21:08 Dose: 40 mg Hydromorphone HCl (Dilaudid) 0.5 mg IVP Q4H PRN PRN Reason: Pain, Mild (1-3) Last Admin: 02/07/17 11:40 Dose: 0.5 mg Cefepime HCl (Maxipime 1gm) 1 gm in 100 mls @ 100 mls/hr IVPB Q12 [facility] PRN Reason: Protocol Stop: 02/16/17 22:01 Last Admin: 02/07/17 21:20 Dose: 100 mls/hr Levetiracetam (Keppra) 500 mg PO BID [facility] Last Admin: 02/07/17 17:46 Dose: 500 mg Loratadine (Claritin) 10 mg PO DAILY [facility] Last Admin: 02/07/17 10:00 Dose: 10 mg Methylprednisolone (Solu-Medrol) 40 mg IVP Q12 [facility] Last Admin: 02/07/17 21:09 Dose: 40 mg Montelukast Sodium (Singulair) 10 mg PO [facility] Last Admin: 02/07/17 21:08 Dose: 10 mg Ondansetron HCl (Zofran Inj) 4 mg IVP Q6 PRN PRN Reason: Nausea/Vomiting Last Admin: 02/07/17 11:39 Dose: 4 mg Results - Vital Signs Recent Vital Signs: Last Vital Signs Temp 97.3 F L 02/08/17 08:00 Pulse 57 L 02/08/17 08:00 Resp 18 02/08/17 08:00 BP 130/83 02/08/17 08:00 Pulse Ox 97 02/08/17 08:00 - Labs Result Diagrams: 02/06/17 12:27 02/06/17 12:27 Attending/Attestation - Attestation I have personally seen and examined this patient.: Yes I have fully participated in the care of the patient.: Yes I have reviewed all pertinent clinical information: Yes Notes (Text): 02/08/17 10:02 I have seen and examined patient with GI fellow. Agree with above documentation with the following additions. In brief, this is a 66 year old male with history of prostate cancer s/p radiation therapy, TURP with ileal conduit, who presents to hospital with complaint of abdominal pain. He does endorse chronic intermittent lower quadrant abdominal pain over past 5 months, however for the past 2 days he reports suprapubic abdominal discomfort along with subjective fever at home. He also reports increased cloudy appearance of urine in bag during this time period. He denies nausea, vomiting, diarrhea, weight loss, rectal bleeding, or change in bowel habits. He is typically constipated which is relieved with use of miralax. He had a colonoscopy in November 2016 and EGD in June 2016. History of prostate cancer s/p radiation therapy, TURP with ileal conduit Abdominal pain CT imaging reviewed by me showing severe R/L hydronephrosis with diffuse ureteral dilation which is likely explanation for pain symptoms - Diet as tolerated - Continue with antibiotic therapy as per ID, awaiting urine and blood culture results - Awaiting urology evaluation, follow up recommendations - Maintain bowel regimen to prevent constipation - Will continue to monitor patient clinical course
[2017-02-08] MEDS: Cefepime 1gm in NS 100ml 1 GM/100 ML BAG IVPB SCH ×2 (10:40→21:48)
[2017-02-08] MEDS: MethylPREDNISolone 40 mg Vial IVP SCH ×2 (10:44→21:48)
--- NOTE | 2017-02-08 11:15 | CP.PCM.CON ---
<Kenneth Rico - Last Filed: 02/08/17 11:15> History of Present Illness - History of Present Illness History of Present Illness: Neurology Consult Note for Dr. Davis Reason for Consult: Ataxia, Headache, Seizure 66 y/o M with PMH HTN, left congenital kidney disorder, left ileal conduit, prostate cancer, GERD, urostomy, and penile implant presented to the ED for abdominal pain. Pt has had chronic b/l lower abdominal pain for the last several months, resulting in numerous hospital visits. Pt states he tried taking penicillin for his pain, but it did not help. Pt states he had been having regular bowel movements. Pt has been seen by neurology service recently for recent onset of seizures. Patient is taking Keppra at home for his seizures and has been compliant with his medication. Denies CP, SOB, N/V/D, fevers, chills, weakness, numbness, tingling, dizziness. PMH: As stated above Surgical Hx: TURP, urostomy, ileal conduit Family Hx: Noncontributory Allergies: NKDA Social Hx: Denies alcohol, tobacco, or illicit drug use Medication: Reviewed. As per chart. Review of Systems - Review of Systems Review of Systems: 14 point review of systems negative, except for HPI. Past Patient History - Infectious Disease Hx of Infectious Diseases: None - Tetanus Immunizations Tetanus Immunization: Unknown - Past Medical History & Family History Past Medical History?: Yes - Past Social History Smoking Status: Former Smoker - CARDIAC Hx Hypertension: Yes - PULMONARY Hx Respiratory Disorders: No - NEUROLOGICAL Hx Neurological Disorder: Yes Hx Dizziness: Yes Hx Seizures: Yes Other/Comment: Dizzyness, periods of loss of consciences - HEENT Hx HEENT Problems: No - RENAL Hx Chronic Kidney Disease: Yes (LT KIDNEY NOT WORKING SINCE ) Other/Comment: UROSTOMY/ LT ILEAL CONDUIT BAG 2010 - ENDOCRINE/METABOLIC Hx Endocrine Disorders: No - HEMATOLOGICAL/ONCOLOGICAL Hx Cancer: Yes (Prostate, tx with radiation) Other/Comment: prostatectomy, - INTEGUMENTARY Hx Dermatological Problems: No - MUSCULOSKELETAL/RHEUMATOLOGICAL Hx Falls: No - GASTROINTESTINAL Hx Gastrointestinal Disorders: Yes (gastritis, hemorrhoids) - GENITOURINARY/GYNECOLOGICAL Hx Genitourinary Disorders: Yes (UROSTOMY BAG) Other/Comment: PENILE SURGERY (FOR ERECTION) - PSYCHIATRIC Hx Substance Use: No - SURGICAL HISTORY Other/Comment: Prostate - ANESTHESIA Hx Anesthesia Reactions: No Hx Malignant Hyperthermia: No Meds Allergies/Adverse Reactions: Allergies Allergy/AdvReac Type Severity Reaction Status Date / Time No Known Allergies Allergy Verified 12/07/16 17:58 - Medications Medications: Current Medications Acetaminophen (Tylenol 325mg Tab) 650 mg PO Q4H PRN PRN Reason: Pain, moderate (4-7) Acetaminophen (Tylenol 325mg Tab) 650 mg PO Q4H PRN PRN Reason: Fever >100.4 F Famotidine (Pepcid) 40 mg PO [facility] Last Admin: 02/07/17 21:08 Dose: 40 mg Hydromorphone HCl (Dilaudid) 0.5 mg IVP Q4H PRN PRN Reason: Pain, Mild (1-3) Last Admin: 02/07/17 11:40 Dose: 0.5 mg Cefepime HCl (Maxipime 1gm) 1 gm in 100 mls @ 100 mls/hr IVPB Q12 [facility] PRN Reason: Protocol Stop: 02/16/17 22:01 Last Admin: 02/08/17 10:40 Dose: 100 mls/hr Levetiracetam (Keppra) 500 mg PO BID [facility] Last Admin: 02/08/17 10:40 Dose: 500 mg Loratadine (Claritin) 10 mg PO DAILY [facility] Last Admin: 02/08/17 10:44 Dose: 10 mg Methylprednisolone (Solu-Medrol) 40 mg IVP Q12 [facility] Last Admin: 02/08/17 10:44 Dose: 40 mg Montelukast Sodium (Singulair) 10 mg PO [facility] Last Admin: 02/07/17 21:08 Dose: 10 mg Ondansetron HCl (Zofran Inj) 4 mg IVP Q6 PRN PRN Reason: Nausea/Vomiting Last Admin: 02/07/17 11:39 Dose: 4 mg Polyethylene Glycol (Miralax) 17 gm PO BID [facility] Physical Exam - Constitutional Appears: Well, No Acute Distress - Head Exam Head Exam: ATRAUMATIC, NORMAL INSPECTION, NORMOCEPHALIC - ENT Exam ENT Exam: Mucous Membranes Moist - Respiratory Exam Respiratory Exam: Clear to Auscultation Bilateral, NORMAL BREATHING PATTERN. absent: Rhonchi, Wheezes - Cardiovascular Exam Cardiovascular Exam: RRR, +S1, +S2 - GI/Abdominal Exam GI & Abdominal Exam: Normal Bowel Sounds, Soft, Tenderness (B/l lower quadrants) - Extremities Exam Extremities exam: Negative for: calf tenderness, pedal edema - Neurological Exam Neurological exam: Alert, CN II-XII Intact, Oriented x3 - Psychiatric Exam Psychiatric exam: Normal Affect, Normal Mood - Skin Skin Exam: Intact, Normal Color, Warm Results - Vital Signs Recent Vital Signs: Last Vital Signs Temp 97.3 F L 02/08/17 08:00 Pulse 57 L 02/08/17 08:00 Resp 18 02/08/17 08:00 BP 130/83 02/08/17 08:00 Pulse Ox 97 02/08/17 08:00 - Labs Result Diagrams: 02/06/17 12:27 02/06/17 12:27 Assessment & Plan - Assessment and Plan (Free Text) Plan: 66 y/o M with PMH HTN, left congenital kidney disorder, left ileal conduit, prostate cancer, GERD, urostomy, and penile implant presented to the ED for abdominal pain. Ab/Pelvis CT shows severe b/l hydronephosis and b/l hydroureter which can be the cause of his symptoms. Pt with no current neurological complaints. No recent seizure activity. Will sign off at this time. Please reconsult as necessary. - Continue Keppra 500 mg BID - Continue with physical therapy - Continue Cefepime as per ID - Continue current medical management Seen, reviewed, and discussed with attending Trisha PGY-2 <Pawan Davis - Last Filed: 02/08/17 12:17> Meds - Medications Medications: Current Medications Acetaminophen (Tylenol 325mg Tab) 650 mg PO Q4H PRN PRN Reason: Pain, moderate (4-7) Acetaminophen (Tylenol 325mg Tab) 650 mg PO Q4H PRN PRN Reason: Fever >100.4 F Famotidine (Pepcid) 40 mg PO HS [facility] Last Admin: 02/07/17 21:08 Dose: 40 mg Hydromorphone HCl (Dilaudid) 0.5 mg IVP Q4H PRN PRN Reason: Pain, Mild (1-3) Last Admin: 02/07/17 11:40 Dose: 0.5 mg Cefepime HCl (Maxipime 1gm) 1 gm in 100 mls @ 100 mls/hr IVPB Q12 [facility] PRN Reason: Protocol Stop: 02/16/17 22:01 Last Admin: 02/08/17 10:40 Dose: 100 mls/hr Levetiracetam (Keppra) 500 mg PO BID [facility] Last Admin: 02/08/17 10:40 Dose: 500 mg Loratadine (Claritin) 10 mg PO DAILY [facility] Last Admin: 02/08/17 10:44 Dose: 10 mg Methylprednisolone (Solu-Medrol) 40 mg IVP Q12 [facility] Last Admin: 02/08/17 10:44 Dose: 40 mg Montelukast Sodium (Singulair) 10 mg PO HS [facility] Last Admin: 02/07/17 21:08 Dose: 10 mg Ondansetron HCl (Zofran Inj) 4 mg IVP Q6 PRN PRN Reason: Nausea/Vomiting Last Admin: 02/07/17 11:39 Dose: 4 mg Polyethylene Glycol (Miralax) 17 gm PO BID [facility] Results - Vital Signs Recent Vital Signs: Last Vital Signs Temp 97.3 F L 02/08/17 08:00 Pulse 57 L 02/08/17 08:00 Resp 18 02/08/17 08:00 BP 130/83 02/08/17 08:00 Pulse Ox 97 02/08/17 08:00 - Labs Result Diagrams: 02/06/17 12:27 02/06/17 12:27 Attending/Attestation - Attestation I have personally seen and examined this patient.: Yes I have fully participated in the care of the patient.: Yes I have reviewed all pertinent clinical information: Yes
--- NOTE | 2017-02-08 16:27 | CP.PCM.PN ---
Subjective - Date & Time of Evaluation Date of Evaluation: 02/08/17 Time of Evaluation: 10:30 - Subjective Subjective: Comfortable, not in distress, afebrile. Objective - Vital Signs/Intake and Output Vital Signs (last 24 hours): Temp Pulse Resp BP Pulse Ox 97.3 F L 57 L 18 130/83 97 02/08/17 08:00 02/08/17 08:00 02/08/17 08:00 02/08/17 08:00 02/08/17 08:00 Intake and Output: 02/08/17 02/08/17 06:59 18:59 Intake Total 240 500 Output Total 400 Balance -160 500 - Medications Medications: Current Medications Acetaminophen (Tylenol 325mg Tab) 650 mg PO Q4H PRN PRN Reason: Pain, moderate (4-7) Acetaminophen (Tylenol 325mg Tab) 650 mg PO Q4H PRN PRN Reason: Fever >100.4 F Famotidine (Pepcid) 40 mg PO [facility] Last Admin: 02/07/17 21:08 Dose: 40 mg Hydromorphone HCl (Dilaudid) 0.5 mg IVP Q4H PRN PRN Reason: Pain, Mild (1-3) Last Admin: 02/07/17 11:40 Dose: 0.5 mg Cefepime HCl (Maxipime 1gm) 1 gm in 100 mls @ 100 mls/hr IVPB Q12 [facility] PRN Reason: Protocol Stop: 02/16/17 22:01 Last Admin: 02/08/17 10:40 Dose: 100 mls/hr Levetiracetam (Keppra) 500 mg PO BID [facility] Last Admin: 02/08/17 10:40 Dose: 500 mg Loratadine (Claritin) 10 mg PO DAILY [facility] Last Admin: 02/08/17 10:44 Dose: 10 mg Methylprednisolone (Solu-Medrol) 40 mg IVP Q12 [facility] Last Admin: 02/08/17 10:44 Dose: 40 mg Montelukast Sodium (Singulair) 10 mg PO [facility] Last Admin: 02/07/17 21:08 Dose: 10 mg Ondansetron HCl (Zofran Inj) 4 mg IVP Q6 PRN PRN Reason: Nausea/Vomiting Last Admin: 02/07/17 11:39 Dose: 4 mg Polyethylene Glycol (Miralax) 17 gm PO BID [facility] - Constitutional Appears: Non-toxic, No Acute Distress - Head Exam Head Exam: NORMAL INSPECTION - ENT Exam ENT Exam: Mucous Membranes Moist - Neck Exam Neck Exam: absent: Meningismus - Respiratory Exam Respiratory Exam: Decreased Breath Sounds - Cardiovascular Exam Cardiovascular Exam: +S1, +S2 - GI/Abdominal Exam GI & Abdominal Exam: Soft. absent: Tenderness Assessment and Plan - Assessment and Plan (Free Text) Plan: Assessment Abdominal pain probably due to bilateral hydronephrosis R/O UTI Prostate cancer S/P urostomy HTN history of DVT history of hemorrhoids S/P penile implant placement Plan Continue Cefepime pending final urine cx results will monitor clinically Follow up Urology evaluation and recommendations
[2017-02-08] MEDS: POLYETHYLENE GLYCOL 3350 17 GM/Dose PACKET PO SCH ×2 (16:50→21:46)
--- NOTE | 2017-02-09 00:07 | CP.PCM.PN ---
Subjective - Date & Time of Evaluation Date of Evaluation: 02/08/17 Time of Evaluation: 07:30 - Subjective Subjective: 66 y/o M with PMH HTN, left congenital kidney disorder, left ileal conduit, prostate cancer, GERD, urostomy, and penile implant presented to the ED for abdominal pain. Pt has had chronic b/l lower abdominal pain for the last several months, resulting in numerous hospital visits. Pt states he tried taking penicillin for his pain, but it did not help. Pt states he had been having regular bowel movements. Pt has been seen by neurology service recently for recent onset of seizures. Patient is taking Keppra at home for his seizures and has been compliant with his medication. Denies CP, SOB, N/V/D, fevers, chills, weakness, numbness, tingling, dizziness. Objective - Vital Signs/Intake and Output Vital Signs (last 24 hours): Temp Pulse Resp BP Pulse Ox 98 F 54 L 17 138/86 96 02/08/17 16:00 02/08/17 16:00 02/08/17 16:00 02/08/17 16:00 02/08/17 16:00 Intake and Output: 02/08/17 02/09/17 18:59 06:59 Intake Total 500 400 Output Total 850 Balance 500 -450 - Medications Medications: Current Medications Acetaminophen (Tylenol 325mg Tab) 650 mg PO Q4H PRN PRN Reason: Pain, moderate (4-7) Acetaminophen (Tylenol 325mg Tab) 650 mg PO Q4H PRN PRN Reason: Fever >100.4 F Famotidine (Pepcid) 40 mg PO HS [facility] Last Admin: 02/08/17 21:48 Dose: 40 mg Hydromorphone HCl (Dilaudid) 0.5 mg IVP Q4H PRN PRN Reason: Pain, Mild (1-3) Last Admin: 02/07/17 11:40 Dose: 0.5 mg Cefepime HCl (Maxipime 1gm) 1 gm in 100 mls @ 100 mls/hr IVPB Q12 [facility] PRN Reason: Protocol Stop: 02/16/17 22:01 Last Admin: 02/08/17 21:48 Dose: 100 mls/hr Levetiracetam (Keppra) 500 mg PO BID [facility] Last Admin: 02/08/17 21:46 Dose: Not Given Loratadine (Claritin) 10 mg PO DAILY [facility] Last Admin: 02/08/17 10:44 Dose: 10 mg Methylprednisolone (Solu-Medrol) 40 mg IVP Q12 [facility] Last Admin: 02/08/17 21:48 Dose: 40 mg Montelukast Sodium (Singulair) 10 mg PO HS [facility] Last Admin: 02/08/17 21:48 Dose: 10 mg Ondansetron HCl (Zofran Inj) 4 mg IVP Q6 PRN PRN Reason: Nausea/Vomiting Last Admin: 02/07/17 11:39 Dose: 4 mg Polyethylene Glycol (Miralax) 17 gm PO BID [facility] Last Admin: 02/08/17 21:46 Dose: Not Given - Constitutional Appears: Well - Head Exam Head Exam: ATRAUMATIC, NORMAL INSPECTION, NORMOCEPHALIC - Eye Exam Eye Exam: EOMI, Normal appearance, PERRL Pupil Exam: NORMAL ACCOMODATION, PERRL - ENT Exam ENT Exam: Mucous Membranes Moist, Normal Exam - Neck Exam Neck Exam: Full ROM, Normal Inspection. absent: Lymphadenopathy - Respiratory Exam Respiratory Exam: Clear to Ausculation Bilateral, NORMAL BREATHING PATTERN - Cardiovascular Exam Cardiovascular Exam: REGULAR RHYTHM, +S1, +S2. absent: Murmur - GI/Abdominal Exam GI & Abdominal Exam: Soft, Normal Bowel Sounds. absent: Tenderness - Rectal Exam Rectal Exam: NORMAL INSPECTION - Exam Exam: Circumcision, NORMAL INSPECTION External exam: NORMAL EXTERNAL EXAM Speculum exam: NORMAL SPECULUM EXAM Bimanual exam: NORMAL BIMANUAL EXAM - Extremities Exam Extremities Exam: Full ROM, Normal Capillary Refill, Normal Inspection. absent : Joint Swelling, Pedal Edema - Back Exam Back Exam: NORMAL INSPECTION - Neurological Exam Neurological Exam: Alert, Awake, CN II-XII Intact, Normal Gait, Oriented x3 - Psychiatric Exam Psychiatric exam: Normal Affect, Normal Mood - Skin Skin Exam: Dry, Intact, Normal Color, Warm Assessment and Plan - Assessment and Plan (Free Text) Assessment: - Assessment and Plan (Free Text) Plan: Assessment Abdominal pain probably due to bilateral hydronephrosis R/O UTI Prostate cancer S/P urostomy HTN history of DVT history of hemorrhoids S/P penile implant placement Plan Continue Cefepime pending final urine cx results as per id will monitor clinically Follow up Urology evaluation and recommendations, urology consult called Plan: Assessment & Plan - Assessment and Plan (Free Text) Assessment: 66 year old male with history of Prostate cancer s/p radiation therapy, congenital left kidney dysfunction s/p TURP with ileal conduit for urinary diversion presenting with chronic, once weekly abdominal pain for five months. Active treatment of UTI, B/L hydronephrosis noted on CT A/P IV contrast. Prior colonoscopy 11/2016 with a 3mm transvere tubular adenoma,radiation proctitis, and internal hemorrhoids. Prior EGD and colonoscopy 06/2016 with H pylori gastritis s/p quadruple therapy and a 3mm tubular adenoma and proctitis. Plan: >abdominal pain likely 2/2 UTI, hydronephrosis >nephrology managing- follow up recommendaions >ID managing- on cefepime >constipation- start Miralax BID >counselled on increased water and fiber intake >discharged 11/2016 for simila rsymptoms- mesenteric ischemia ruled out on CTA >will follow clinical course
--- NOTE | 2017-02-09 08:58 | CP.PCM.PN ---
<GarciaGrazyna - Last Filed: 02/09/17 08:55> Subjective - Date & Time of Evaluation Date of Evaluation: 02/09/17 Time of Evaluation: 08:55 - Subjective Subjective: Gastroenterology Fellow/PGY5 Progress Note Patient notes resolved abdominal pain. Tolerating regular diet. Normal bowel movement yesterday. A 12-point review of systems negative except for as above. Objective - Vital Signs/Intake and Output Vital Signs (last 24 hours): Temp Pulse Resp BP Pulse Ox 97.4 F L 51 L 18 153/95 H 99 02/09/17 08:02 02/09/17 08:02 02/09/17 08:02 02/09/17 08:02 02/09/17 08:02 Intake and Output: 02/09/17 02/09/17 06:59 18:59 Intake Total 580 Output Total 1950 Balance -1370 - Medications Medications: Current Medications Acetaminophen (Tylenol 325mg Tab) 650 mg PO Q4H PRN PRN Reason: Pain, moderate (4-7) Acetaminophen (Tylenol 325mg Tab) 650 mg PO Q4H PRN PRN Reason: Fever >100.4 F Famotidine (Pepcid) 40 mg PO [facility] Last Admin: 02/08/17 21:48 Dose: 40 mg Hydromorphone HCl (Dilaudid) 0.5 mg IVP Q4H PRN PRN Reason: Pain, Mild (1-3) Last Admin: 02/07/17 11:40 Dose: 0.5 mg Cefepime HCl (Maxipime 1gm) 1 gm in 100 mls @ 100 mls/hr IVPB Q12 [facility] PRN Reason: Protocol Stop: 02/16/17 22:01 Last Admin: 02/08/17 21:48 Dose: 100 mls/hr Levetiracetam (Keppra) 500 mg PO BID [facility] Last Admin: 02/08/17 21:46 Dose: Not Given Loratadine (Claritin) 10 mg PO DAILY [facility] Last Admin: 02/08/17 10:44 Dose: 10 mg Methylprednisolone (Solu-Medrol) 40 mg IVP Q12 [facility] Last Admin: 02/08/17 21:48 Dose: 40 mg Montelukast Sodium (Singulair) 10 mg PO [facility] Last Admin: 02/08/17 21:48 Dose: 10 mg Ondansetron HCl (Zofran Inj) 4 mg IVP Q6 PRN PRN Reason: Nausea/Vomiting Last Admin: 02/07/17 11:39 Dose: 4 mg Polyethylene Glycol (Miralax) 17 gm PO BID [facility] Last Admin: 02/08/17 21:46 Dose: Not Given - Constitutional Appears: Non-toxic, No Acute Distress - Head Exam Head Exam: ATRAUMATIC, NORMOCEPHALIC - Eye Exam Eye Exam: EOMI, PERRL Pupil Exam: PERRL. absent: Miosis, Mydriatic - ENT Exam ENT Exam: Mucous Membranes Moist, Normal Oropharynx - Neck Exam Neck Exam: Full ROM, Normal Inspection - Respiratory Exam Respiratory Exam: Clear to Ausculation Bilateral. absent: Rales, Rhonchi, Wheezes - Cardiovascular Exam Cardiovascular Exam: RRR, +S1. absent: Gallop, Rubs - GI/Abdominal Exam GI & Abdominal Exam: Soft, Normal Bowel Sounds. absent: Distended, Firm, Guarding, Rigid, Tenderness, Organomegaly Additional comments: LLQ stoma with pink hue and clear urine in bag of ileal conduit - Extremities Exam Extremities Exam: Full ROM. absent: Pedal Edema - Neurological Exam Neurological Exam: Alert, Awake - Psychiatric Exam Psychiatric exam: Normal Affect, Normal Mood - Skin Skin Exam: Dry, Intact, Normal Color, Warm Assessment and Plan - Assessment and Plan (Free Text) Assessment: 66 year old male with history of Prostate cancer s/p radiation therapy, congenital left kidney dysfunction s/p TURP with ileal conduit for urinary diversion presenting with chronic, once weekly abdominal pain for five months. Active treatment of UTI, chronic B/L hydronephrosis noted on CT A/P IV contrast. Prior colonoscopy 11/2016 with a 3mm transverse tubular adenoma, radiation proctitis, and internal hemorrhoids. Prior EGD and colonoscopy 2015 with H pylori gastritis s/p quadruple therapy and a 3mm tubular adenoma and proctitis. Plan: >abdominal pain resolved >follow up urology recommendations >ID managing- on cefepime >continue Miralax BID >tolerating regular diet >thank you for opportunity to participate in the care of this patient <Sarwat Hauser - Last Filed: 02/09/17 19:34> Objective - Vital Signs/Intake and Output Vital Signs (last 24 hours): Temp Pulse Resp BP Pulse Ox 97.4 F L 51 L 18 153/95 H 99 02/09/17 08:02 02/09/17 08:02 02/09/17 08:02 02/09/17 08:02 02/09/17 08:02 Intake and Output: 02/09/17 02/10/17 18:59 06:59 Intake Total 780 Output Total 2060 Balance -1280 - Medications Medications: Current Medications Acetaminophen (Tylenol 325mg Tab) 650 mg PO Q4H PRN PRN Reason: Pain, moderate (4-7) Acetaminophen (Tylenol 325mg Tab) 650 mg PO Q4H PRN PRN Reason: Fever >100.4 F Famotidine (Pepcid) 40 mg PO [facility] Last Admin: 02/08/17 21:48 Dose: 40 mg Hydromorphone HCl (Dilaudid) 0.5 mg IVP Q4H PRN PRN Reason: Pain, Mild (1-3) Last Admin: 02/07/17 11:40 Dose: 0.5 mg Cefepime HCl (Maxipime 1gm) 1 gm in 100 mls @ 100 mls/hr IVPB Q12 [facility] PRN Reason: Protocol Stop: 02/16/17 22:01 Last Admin: 02/09/17 09:26 Dose: 100 mls/hr Levetiracetam (Keppra) 500 mg PO BID [facility] Last Admin: 02/09/17 17:10 Dose: 500 mg Loratadine (Claritin) 10 mg PO DAILY [facility] Last Admin: 02/09/17 09:25 Dose: 10 mg Methylprednisolone (Solu-Medrol) 40 mg IVP Q12 [facility] Last Admin: 02/09/17 09:26 Dose: 40 mg Montelukast Sodium (Singulair) 10 mg PO [facility] Last Admin: 02/08/17 21:48 Dose: 10 mg Ondansetron HCl (Zofran Inj) 4 mg IVP Q6 PRN PRN Reason: Nausea/Vomiting Last Admin: 02/07/17 11:39 Dose: 4 mg Polyethylene Glycol (Miralax) 17 gm PO BID [facility] Last Admin: 02/09/17 17:10 Dose: 17 gm - Labs Labs: 02/09/17 09:20 02/09/17 09:20 Attending/Attestation - Attestation I have personally seen and examined this patient.: Yes I have fully participated in the care of the patient.: Yes I have reviewed all pertinent clinical information, including history, physical exam and plan: Yes Notes (Text): 02/09/17 19:33 66 year old male with h/o Prostate cancer s/p radiation therapy, s/p TURP with ileal conduit admitted with abdominal pain and UTI. 1. Abdominal pain Plan: -he has intermittent abdominal pains -now resolved -continue bowel regimen as above -diet as tolerated -abx for UTI per Dr. Lopez -supportive care -will sign off
[2017-02-09] MEDS: POLYETHYLENE GLYCOL 3350 17 GM/Dose PACKET PO SCH ×2 (09:25→17:10)
[2017-02-09] MEDS: Cefepime 1gm in NS 100ml 1 GM/100 ML BAG IVPB SCH ×2 (09:26→21:20)
[2017-02-09] MEDS: MethylPREDNISolone 40 mg Vial IVP SCH ×2 (09:26→21:20)
[2017-02-09 09:48] LABS: BASO # 0.01 K/mm3 (0.0-2.0); BASO % 0.1 % (0.0-3.0); GRAN # 15.65 (1.4-6.5); GRAN % 89.7 % (50.0-68.0); HEMOGLOBIN 12.5 gm/dL (14.0-18.0); LYMPH # 1.1 (1.2-3.4); LYMPH % 6.4 % (22.0-35.0); MEAN CELL VOLUME 87.4 fL (80.0-105.0); MEAN CORPUSCULAR HEMOGLOBIN 29.3 pg (25.0-35.0); MEAN CORPUSCULAR HGB CONC 33.5 g/dl (31.0-37.0); MEAN PLATELET VOLUME 11.2 fl (7.0-11.0); MONO # 0.7 (0.1-0.6); MONO % 3.8 % (1.0-6.0); PLATELET COUNT 215 10^3/uL (120.0-450.0); RBC 4.27 10^6/uL (3.5-6.1); RED CELL DISTRIBUTION WIDTH 14.4 % (11.5-14.5); WHITE BLOOD COUNT 17.4 10^3/ul (4.5-11.0)
[2017-02-09 10:06] LABS: ALBUMIN 3.6 g/dL (3.0-4.8); ALT/SGPT 27 U/L (7-56); AST/SGOT 19 U/L (15-59); BLOOD UREA NITROGEN 29 mg/dL (7-21); CALCIUM 8.8 mg/dL (8.4-10.5); GFR AFRICAN-AMERICAN > 60; GFR NON-AFRICAN AMERICAN > 60
--- NOTE | 2017-02-09 14:31 | CP.PCM.PN ---
Subjective - Date & Time of Evaluation Date of Evaluation: 02/09/17 Time of Evaluation: 10:28 - Subjective Subjective: Comfortable in bed, no fevers, not in distress. Objective - Vital Signs/Intake and Output Vital Signs (last 24 hours): Temp Pulse Resp BP Pulse Ox 97.4 F L 51 L 18 153/95 H 99 02/09/17 08:02 02/09/17 08:02 02/09/17 08:02 02/09/17 08:02 02/09/17 08:02 Intake and Output: 02/09/17 02/09/17 06:59 18:59 Intake Total 580 Output Total 1950 Balance -1370 - Medications Medications: Current Medications Acetaminophen (Tylenol 325mg Tab) 650 mg PO Q4H PRN PRN Reason: Pain, moderate (4-7) Acetaminophen (Tylenol 325mg Tab) 650 mg PO Q4H PRN PRN Reason: Fever >100.4 F Famotidine (Pepcid) 40 mg PO [facility] Last Admin: 02/08/17 21:48 Dose: 40 mg Hydromorphone HCl (Dilaudid) 0.5 mg IVP Q4H PRN PRN Reason: Pain, Mild (1-3) Last Admin: 02/07/17 11:40 Dose: 0.5 mg Cefepime HCl (Maxipime 1gm) 1 gm in 100 mls @ 100 mls/hr IVPB Q12 [facility] PRN Reason: Protocol Stop: 02/16/17 22:01 Last Admin: 02/09/17 09:26 Dose: 100 mls/hr Levetiracetam (Keppra) 500 mg PO BID [facility] Last Admin: 02/09/17 09:25 Dose: 500 mg Loratadine (Claritin) 10 mg PO DAILY [facility] Last Admin: 02/09/17 09:25 Dose: 10 mg Methylprednisolone (Solu-Medrol) 40 mg IVP Q12 [facility] Last Admin: 02/09/17 09:26 Dose: 40 mg Montelukast Sodium (Singulair) 10 mg PO [facility] Last Admin: 02/08/17 21:48 Dose: 10 mg Ondansetron HCl (Zofran Inj) 4 mg IVP Q6 PRN PRN Reason: Nausea/Vomiting Last Admin: 02/07/17 11:39 Dose: 4 mg Polyethylene Glycol (Miralax) 17 gm PO BID [facility] Last Admin: 02/09/17 09:25 Dose: 17 gm - Constitutional Appears: Non-toxic, No Acute Distress - Head Exam Head Exam: NORMAL INSPECTION - ENT Exam ENT Exam: Mucous Membranes Moist - Neck Exam Neck Exam: absent: Lymphadenopathy, Meningismus - Respiratory Exam Respiratory Exam: Decreased Breath Sounds - Cardiovascular Exam Cardiovascular Exam: +S1, +S2 - GI/Abdominal Exam GI & Abdominal Exam: Soft. absent: Tenderness Additional comments: left sided abdominal urostomy in place Assessment and Plan - Assessment and Plan (Free Text) Plan: Assessment Abdominal pain probably due to bilateral hydronephrosis R/O UTI Prostate cancer S/P urostomy HTN history of DVT history of hemorrhoids S/P penile implant placement Plan Continue Cefepime pending final urine cx results - urine growing 10-50k of organisms - will call lab if they are able to identify organisms will monitor clinically Follow up Urology evaluation and recommendations
--- NOTE | 2017-02-09 22:14 | CP.PCM.PN ---
Subjective - Date & Time of Evaluation Date of Evaluation: 02/09/17 Time of Evaluation: 08:00 - Subjective Subjective: in the chair sitting comfortably ,no n,v, d , or pascual sob chest pain , resolved abdominal pain. Tolerating regular diet. Normal bowel movement yesterday. A 12-point review of systems negative except for as above. Objective - Vital Signs/Intake and Output Vital Signs (last 24 hours): Temp Pulse Resp BP Pulse Ox 98.1 F 51 L 59 H 160/90 H 99 02/09/17 16:00 02/09/17 08:02 02/09/17 16:00 02/09/17 16:00 02/09/17 16:00 Intake and Output: 02/09/17 02/10/17 18:59 06:59 Intake Total 780 480 Output Total 2060 600 Balance -1280 -120 - Medications Medications: Current Medications Acetaminophen (Tylenol 325mg Tab) 650 mg PO Q4H PRN PRN Reason: Pain, moderate (4-7) Acetaminophen (Tylenol 325mg Tab) 650 mg PO Q4H PRN PRN Reason: Fever >100.4 F Famotidine (Pepcid) 40 mg PO HS [facility] Last Admin: 02/09/17 21:20 Dose: 40 mg Hydromorphone HCl (Dilaudid) 0.5 mg IVP Q4H PRN PRN Reason: Pain, Mild (1-3) Last Admin: 02/07/17 11:40 Dose: 0.5 mg Cefepime HCl (Maxipime 1gm) 1 gm in 100 mls @ 100 mls/hr IVPB Q12 [facility] PRN Reason: Protocol Stop: 02/16/17 22:01 Last Admin: 02/09/17 21:20 Dose: 100 mls/hr Levetiracetam (Keppra) 500 mg PO BID [facility] Last Admin: 02/09/17 17:10 Dose: 500 mg Loratadine (Claritin) 10 mg PO DAILY [facility] Last Admin: 02/09/17 09:25 Dose: 10 mg Methylprednisolone (Solu-Medrol) 40 mg IVP Q12 [facility] Last Admin: 02/09/17 21:20 Dose: 40 mg Montelukast Sodium (Singulair) 10 mg PO [facility] Last Admin: 02/09/17 21:20 Dose: 10 mg Ondansetron HCl (Zofran Inj) 4 mg IVP Q6 PRN PRN Reason: Nausea/Vomiting Last Admin: 02/07/17 11:39 Dose: 4 mg Polyethylene Glycol (Miralax) 17 gm PO BID [facility] Last Admin: 02/09/17 17:10 Dose: 17 gm - Labs Labs: 02/09/17 09:20 02/09/17 09:20 - Constitutional Appears: Well - Head Exam Head Exam: ATRAUMATIC, NORMAL INSPECTION, NORMOCEPHALIC - Eye Exam Eye Exam: EOMI, Normal appearance, PERRL Pupil Exam: NORMAL ACCOMODATION, PERRL - ENT Exam ENT Exam: Mucous Membranes Moist, Normal Exam - Neck Exam Neck Exam: Full ROM, Normal Inspection. absent: Lymphadenopathy - Respiratory Exam Respiratory Exam: Clear to Ausculation Bilateral, NORMAL BREATHING PATTERN - Cardiovascular Exam Cardiovascular Exam: REGULAR RHYTHM, +S1, +S2. absent: Murmur - GI/Abdominal Exam GI & Abdominal Exam: Soft, Normal Bowel Sounds. absent: Tenderness - Rectal Exam Rectal Exam: NORMAL INSPECTION - Exam Exam: Circumcision, NORMAL INSPECTION External exam: NORMAL EXTERNAL EXAM Speculum exam: NORMAL SPECULUM EXAM Bimanual exam: NORMAL BIMANUAL EXAM - Extremities Exam Extremities Exam: Full ROM, Normal Capillary Refill, Normal Inspection. 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 Active treatment of UTI, chronic B/L hydronephrosis noted on CT A/P IV contrast. Prior colonoscopy 11/2016 with a 3mm transverse tubular adenoma, radiation proctitis, and internal hemorrhoids. Prior EGD and colonoscopy 2015 with H pylori gastritis s/p quadruple therapy and a 3mm tubular adenoma and proctitis. Plan: abdominal pain resolved >follow up urology recommendations >ID managing- on cefepime >continue Miralax BID >tolerating regular diet Plan: Abdominal pain probably due to bilateral hydronephrosis R/O UTI Prostate cancer S/P urostomy HTN history of DVT history of hemorrhoids S/P penile implant placement Plan Continue Cefepime pending final urine cx results - urine growing 10-50k of organisms - will call lab if they are able to identify organisms will monitor clinically Follow up Urology evaluation and recommendations, urology consult called , waiting for input
--- NOTE | 2017-02-09 23:24 | CP.PCM.PN ---
Subjective - Date & Time of Evaluation Date of Evaluation: 02/09/17 Time of Evaluation: 23:22 - Subjective Subjective: S: It was requested to insert a heparin lock. Patient has no complaints. Medical record was reviewed. O: Last Vital Signs 3 Temp 98.1 F 02/09/17 16:00 Pulse 51 L 02/09/17 08:02 Resp 59 H 02/09/17 16:00 BP 160/90 H 02/09/17 16:00 Pulse Ox 99 02/09/17 16:00 Awake, alert , not in distress. LUNGS:Normal breathing pattern. A:Poor venous access. Encounter for intravenous line placement. P:# 24 angiocath was inserted in right ante cubital region. Objective - Vital Signs/Intake and Output Vital Signs (last 24 hours): Temp Pulse Resp BP Pulse Ox 98.1 F 51 L 59 H 160/90 H 99 02/09/17 16:00 02/09/17 08:02 02/09/17 16:00 02/09/17 16:00 02/09/17 16:00 Intake and Output: 02/09/17 02/10/17 18:59 06:59 Intake Total 780 480 Output Total 2060 600 Balance -1280 -120 - Medications Medications: Current Medications Acetaminophen (Tylenol 325mg Tab) 650 mg PO Q4H PRN PRN Reason: Pain, moderate (4-7) Acetaminophen (Tylenol 325mg Tab) 650 mg PO Q4H PRN PRN Reason: Fever >100.4 F Famotidine (Pepcid) 40 mg PO [facility] Last Admin: 02/09/17 21:20 Dose: 40 mg Hydromorphone HCl (Dilaudid) 0.5 mg IVP Q4H PRN PRN Reason: Pain, Mild (1-3) Last Admin: 02/07/17 11:40 Dose: 0.5 mg Cefepime HCl (Maxipime 1gm) 1 gm in 100 mls @ 100 mls/hr IVPB Q12 [facility] PRN Reason: Protocol Stop: 02/16/17 22:01 Last Admin: 02/09/17 21:20 Dose: 100 mls/hr Levetiracetam (Keppra) 500 mg PO BID [facility] Last Admin: 02/09/17 17:10 Dose: 500 mg Loratadine (Claritin) 10 mg PO DAILY [facility] Last Admin: 02/09/17 09:25 Dose: 10 mg Methylprednisolone (Solu-Medrol) 40 mg IVP Q12 [facility] Last Admin: 02/09/17 21:20 Dose: 40 mg Montelukast Sodium (Singulair) 10 mg PO HS [facility] Last Admin: 02/09/17 21:20 Dose: 10 mg Ondansetron HCl (Zofran Inj) 4 mg IVP Q6 PRN PRN Reason: Nausea/Vomiting Last Admin: 02/07/17 11:39 Dose: 4 mg Polyethylene Glycol (Miralax) 17 gm PO BID [facility] Last Admin: 02/09/17 17:10 Dose: 17 gm - Labs Labs: 02/09/17 09:20 02/09/17 09:20
--- NOTE | 2017-02-10 06:10 | CP.PCM.PN ---
Subjective - Date & Time of Evaluation Date of Evaluation: 02/10/17 Time of Evaluation: 06:09 - Subjective Subjective: Patient was seen at bedside because he had elevated blood pressure.163/102. Nurse Bianca was certified pathology assistant. He has no complaints of nausea, headache, dizziness, paraesthesia, weakness, light headedness, heaviness in head, chest pain, sob. Garrett is on Lisinopril 10 mg po daily and HCTZ 12.5 mg po daily at home. This 66 year old male was admitted with lower abdominal pain, subjective fever. Has PMH of prostate cancer, urostomy bag, dizziness, left kidney not working since . Objective - Vital Signs/Intake and Output Vital Signs (last 24 hours): Temp Pulse Resp BP Pulse Ox 98.1 F 51 L 59 H 160/90 H 99 02/09/17 16:00 02/09/17 08:02 02/09/17 16:00 02/09/17 16:00 02/09/17 16:00 Intake and Output: 02/09/17 02/10/17 18:59 06:59 Intake Total 780 960 Output Total 2060 2200 Balance -1280 -1240 - Medications Medications: Current Medications Acetaminophen (Tylenol 325mg Tab) 650 mg PO Q4H PRN PRN Reason: Pain, moderate (4-7) Acetaminophen (Tylenol 325mg Tab) 650 mg PO Q4H PRN PRN Reason: Fever >100.4 F Famotidine (Pepcid) 40 mg PO HS [facility] Last Admin: 02/09/17 21:20 Dose: 40 mg Hydromorphone HCl (Dilaudid) 0.5 mg IVP Q4H PRN PRN Reason: Pain, Mild (1-3) Last Admin: 02/07/17 11:40 Dose: 0.5 mg Cefepime HCl (Maxipime 1gm) 1 gm in 100 mls @ 100 mls/hr IVPB Q12 [facility] PRN Reason: Protocol Stop: 02/16/17 22:01 Last Admin: 02/09/17 21:20 Dose: 100 mls/hr Levetiracetam (Keppra) 500 mg PO BID [facility] Last Admin: 02/09/17 17:10 Dose: 500 mg Loratadine (Claritin) 10 mg PO DAILY [facility] Last Admin: 02/09/17 09:25 Dose: 10 mg Methylprednisolone (Solu-Medrol) 40 mg IVP Q12 [facility] Last Admin: 02/09/17 21:20 Dose: 40 mg Montelukast Sodium (Singulair) 10 mg PO HS [facility] Last Admin: 02/09/17 21:20 Dose: 10 mg Ondansetron HCl (Zofran Inj) 4 mg IVP Q6 PRN PRN Reason: Nausea/Vomiting Last Admin: 02/07/17 11:39 Dose: 4 mg Polyethylene Glycol (Miralax) 17 gm PO BID [facility] Last Admin: 02/09/17 17:10 Dose: 17 gm - Labs Labs: 02/09/17 09:20 02/09/17 09:20 - Constitutional Appears: Well, No Acute Distress - Head Exam Head Exam: ATRAUMATIC, NORMAL INSPECTION, NORMOCEPHALIC - Eye Exam Eye Exam: Normal appearance - ENT Exam ENT Exam: Normal External Ear Exam - Neck Exam Neck Exam: Normal Inspection - Respiratory Exam Respiratory Exam: NORMAL BREATHING PATTERN - Cardiovascular Exam Cardiovascular Exam: absent: JVD - GI/Abdominal Exam GI & Abdominal Exam: absent: Distended - Rectal Exam Rectal Exam: Deferred - Exam Additional comments: Deferred. - Extremities Exam Extremities Exam: Normal Inspection - Back Exam Back Exam: NORMAL INSPECTION - Neurological Exam Neurological Exam: Alert, Oriented x3 - Psychiatric Exam Psychiatric exam: Normal Affect, Normal Mood - Skin Skin Exam: Normal Color Assessment and Plan - Assessment and Plan (Free Text) Assessment: Elevated blood pressure reading. Prostate cancer. S/P Urostomy bag. Hematuria. Anemia. Proteinuria. Plan: HCTZ 12.5 mg po stat. Lisinoprin 10 mg po stat. Continue present management.
[2017-02-10] MEDS: MethylPREDNISolone 40 mg Vial IVP SCH ×2 (10:04→22:11)
[2017-02-10] MEDS: POLYETHYLENE GLYCOL 3350 17 GM/Dose PACKET PO SCH ×2 (10:04→17:34)
[2017-02-10] MEDS: Cefepime 1gm in NS 100ml 1 GM/100 ML BAG IVPB SCH ×2 (10:04→22:11)
--- NOTE | 2017-02-10 15:29 | CP.PCM.PN ---
Subjective - Date & Time of Evaluation Date of Evaluation: 02/10/17 Time of Evaluation: 10:15 - Subjective Subjective: Comfortable, not in distress, afebrile. Objective - Vital Signs/Intake and Output Vital Signs (last 24 hours): Temp Pulse Resp BP Pulse Ox 98.1 F 62 59 H 168/102 H 99 02/09/17 16:00 02/10/17 07:02 02/09/17 16:00 02/10/17 07:02 02/09/17 16:00 Intake and Output: 02/10/17 02/10/17 06:59 18:59 Intake Total 960 Output Total 2200 Balance -1240 - Medications Medications: Current Medications Acetaminophen (Tylenol 325mg Tab) 650 mg PO Q4H PRN PRN Reason: Pain, moderate (4-7) Acetaminophen (Tylenol 325mg Tab) 650 mg PO Q4H PRN PRN Reason: Fever >100.4 F Famotidine (Pepcid) 40 mg PO [facility] Last Admin: 02/09/17 21:20 Dose: 40 mg Hydromorphone HCl (Dilaudid) 0.5 mg IVP Q4H PRN PRN Reason: Pain, Mild (1-3) Last Admin: 02/07/17 11:40 Dose: 0.5 mg Cefepime HCl (Maxipime 1gm) 1 gm in 100 mls @ 100 mls/hr IVPB Q12 [facility] PRN Reason: Protocol Stop: 02/16/17 22:01 Last Admin: 02/09/17 21:20 Dose: 100 mls/hr Levetiracetam (Keppra) 500 mg PO BID [facility] Last Admin: 02/09/17 17:10 Dose: 500 mg Loratadine (Claritin) 10 mg PO DAILY [facility] Last Admin: 02/09/17 09:25 Dose: 10 mg Methylprednisolone (Solu-Medrol) 40 mg IVP Q12 [facility] Last Admin: 02/09/17 21:20 Dose: 40 mg Montelukast Sodium (Singulair) 10 mg PO [facility] Last Admin: 02/09/17 21:20 Dose: 10 mg Ondansetron HCl (Zofran Inj) 4 mg IVP Q6 PRN PRN Reason: Nausea/Vomiting Last Admin: 02/07/17 11:39 Dose: 4 mg Polyethylene Glycol (Miralax) 17 gm PO BID [facility] Last Admin: 02/09/17 17:10 Dose: 17 gm - Labs Labs: 02/09/17 09:20 02/09/17 09:20 - Constitutional Appears: Non-toxic, No Acute Distress - Head Exam Head Exam: NORMAL INSPECTION - ENT Exam ENT Exam: Mucous Membranes Moist - Neck Exam Neck Exam: absent: Meningismus - Respiratory Exam Respiratory Exam: Decreased Breath Sounds - Cardiovascular Exam Cardiovascular Exam: +S1, +S2 - GI/Abdominal Exam GI & Abdominal Exam: Soft. absent: Tenderness Assessment and Plan - Assessment and Plan (Free Text) Plan: Assessment Abdominal pain probably due to bilateral hydronephrosis R/O UTI Prostate cancer S/P urostomy HTN history of DVT history of hemorrhoids S/P penile implant placement Plan Continue Cefepime pending final urine cx results - urine growing 10-50k of organisms - will talk with the lab to see if they are able to identify organisms will monitor clinically Follow up Urology evaluation and recommendations
[2017-02-10 19:22] LABS: URINE BILIRUBIN NEGATIVE (NEGATIVE); URINE BLOOD LARGE (NEGATIVE); URINE GLUCOSE (UA) NEGATIVE (NEGATIVE); URINE LEUKOCYTE ESTERASE TRACE Leu/uL (NEGATIVE); URINE NITRATE NEGATIVE (NEGATIVE); URINE PROTEIN NEGATIVE mg/dL (<30 mg/dL); URINE UROBILINOGEN 0.2 E.U./dL (<1 E.U./dL)
[2017-02-10 19:27] LABS: URINE APPEARANCE SLIGHT-CLOUDY (CLEAR)
[2017-02-10 19:28] LABS: URINE AMORPHOUS SEDIMENT SMALL; URINE RBC 25 - 30 /hpf (0-2)
--- NOTE | 2017-02-11 01:48 | PN ---
SUBJECTIVE: The patient is 56 years old female. The patient is seen and examined at the bedside, sitting comfortably. No nausea, vomiting, diarrhea, or hematochezia. No swelling of the leg. No chest pain. No palpitations. No headache. No dizziness. Abdominal pain is better. No cyanosis of the legs. PHYSICAL EXAMINATION: VITAL SIGNS: Temperature 97.6, pulse 55, blood pressure 132/90, and respiratory rate is 20. HEENT: Head is normocephalic and atraumatic. Eyes; PERRLA. Extraocular muscles intact. Conjunctivae clear. Nose patent. NECK: Supple. No carotid bruits, JVD, or thyromegaly. CHEST: Bilateral symmetrical. HEART: S1 and S2 positive. LUNGS: Clear to auscultation. ABDOMEN: Soft. Bowel sounds present. No organomegaly. EXTREMITIES: No edema. No cyanosis. NEUROLOGIC: The patient is awake and alert. Moving all four extremities. No focal deficits. MEDICATIONS: Claritin, Dilaudid, Keppra, Maxipime, Maalox, Pepcid, Singulair, Solu-Medrol, Tylenol, Zestril, and Zofran. LABORATORY DATA: Hemoglobin is 12.5, hematocrit 37.3, and platelets 215,000. Sodium 140, potassium 4.1, BUN 26, creatinine 0.9, and glucose 217. ASSESSMENT AND PLAN: Mr. Julio Donald is a 66 years old male with the leukocytosis, anemia, hypoglycemia, proteinuria, hematuria, and urinary tract infection. HIV 1-2 antigen/antibody duration is negative. The patient has been seen by Dr. Rojo today because of high blood pressure. He gave dose of lisinopril 10 mg and hctz 12.5. The patient has urinary tract infection and urology consult called with Dr. Lyle. The patient has never seen, we do not have any documentation from urologist. The patient was seen by infectious disease and they are recommending urology followup. According to ID, the patient has abdominal pain and because of bilateral hydronephrosis, urinary tract infection, prostate cancer, status post urostomy, hypertension, history of deep venous thrombosis, history of hemorrhoids implant placement. Continue cefepime depending on the urine culture and I reviewed Dr. Dallin Fernandez' notes, yesterday's notes and today's notes. Discussion done length of time with the patient through the [facility] nurse. GI and DVT prophylaxis, repeat labs, and will followup. Catherine Lopez MD MTDD
[2017-02-11] MEDS: MethylPREDNISolone 40 mg Vial IVP SCH ×2 (09:11→21:34)
[2017-02-11] MEDS: Cefepime 1gm in NS 100ml 1 GM/100 ML BAG IVPB SCH ×2 (09:11→21:33)
[2017-02-11] MEDS: POLYETHYLENE GLYCOL 3350 17 GM/Dose PACKET PO SCH ×2 (09:11→17:12)
--- NOTE | 2017-02-11 12:07 | CP.PCM.PN ---
Subjective - Date & Time of Evaluation Date of Evaluation: 02/11/17 Time of Evaluation: 10:30 - Subjective Subjective: Comfortable in bed, no fevers, not in distress. Objective - Vital Signs/Intake and Output Vital Signs (last 24 hours): Temp Pulse Resp BP Pulse Ox 97.6 F 55 L 20 132/91 H 96 02/10/17 16:00 02/10/17 16:00 02/10/17 16:00 02/10/17 16:00 02/10/17 16:00 Intake and Output: 02/10/17 02/11/17 18:59 06:59 Intake Total 480 1330 Output Total 2240 1800 Balance -1760 -470 - Medications Medications: Current Medications Acetaminophen (Tylenol 325mg Tab) 650 mg PO Q4H PRN PRN Reason: Pain, moderate (4-7) Acetaminophen (Tylenol 325mg Tab) 650 mg PO Q4H PRN PRN Reason: Fever >100.4 F Famotidine (Pepcid) 40 mg PO [facility] Last Admin: 02/10/17 22:11 Dose: 40 mg Cefepime HCl (Maxipime 1gm) 1 gm in 100 mls @ 100 mls/hr IVPB Q12 [facility] PRN Reason: Protocol Stop: 02/16/17 22:01 Last Admin: 02/10/17 22:11 Dose: 100 mls/hr Levetiracetam (Keppra) 500 mg PO BID [facility] Last Admin: 02/10/17 17:34 Dose: 500 mg Lisinopril (Zestril) 5 mg PO DAILY [facility] Loratadine (Claritin) 10 mg PO DAILY [facility] Last Admin: 02/10/17 10:04 Dose: 10 mg Methylprednisolone (Solu-Medrol) 20 mg IVP Q12 [facility] Last Admin: 02/10/17 22:11 Dose: 20 mg Montelukast Sodium (Singulair) 10 mg PO [facility] Last Admin: 02/10/17 22:11 Dose: 10 mg Polyethylene Glycol (Miralax) 17 gm PO BID [facility] Last Admin: 02/10/17 17:34 Dose: 17 gm - Labs Labs: 02/09/17 09:20 02/09/17 09:20 - Constitutional Appears: Non-toxic, No Acute Distress - Head Exam Head Exam: NORMAL INSPECTION - ENT Exam ENT Exam: Mucous Membranes Moist - Neck Exam Neck Exam: absent: Lymphadenopathy, Meningismus - Respiratory Exam Respiratory Exam: Decreased Breath Sounds - Cardiovascular Exam Cardiovascular Exam: +S1, +S2 - GI/Abdominal Exam GI & Abdominal Exam: Soft. absent: Tenderness Assessment and Plan - Assessment and Plan (Free Text) Plan: Assessment Abdominal pain probably due to bilateral hydronephrosis R/O UTI Prostate cancer S/P urostomy HTN history of DVT history of hemorrhoids S/P penile implant placement Plan Continue Cefepime (day 5) pending repeat urine cx - if negative, the patient can be switched to PO Vantin for another 5-7 days will monitor clinically
--- NOTE | 2017-02-11 18:25 | CT ---
PROCEDURE: CT HEAD WITHOUT CONTRAST. HISTORY: S/P Seizure COMPARISON: Noncontrast head CT performed 12/07/16 TECHNIQUE: Axial computed tomography images were obtained through the head/brain without intravenous contrast. Radiation dose: Total exam DLP = 774.23 mGy-cm. This CT exam was performed using one or more of the following dose reduction techniques: Automated exposure control, adjustment of the mA and/or kV according to patient size, and/or use of iterative reconstruction technique. FINDINGS: HEMORRHAGE: No intracranial hemorrhage. BRAIN: Diffuse atrophy with prominence of the ventricles and sulci noted. No mass effect or edema. Mild scattered white matter hypodensities, which are nonspecific, but often seen with chronic microvascular ischemic disease. Please note that MRI with diffusion imaging is more sensitive in the detection of acute ischemic event. VENTRICLES: No hydrocephalus. CALVARIUM: Unremarkable. PARANASAL SINUSES: Unremarkable as visualized. No significant inflammatory changes. MASTOID AIR CELLS: Unremarkable as visualized. No inflammatory changes. OTHER FINDINGS: None. IMPRESSION: Generalized atrophy. Mild scattered nonspecific white matter changes.
--- NOTE | 2017-02-12 02:33 | PN ---
SUBJECTIVE: The patient is 66 years old male. The patient is seen and examined on the bedside, sitting on the chair, and looking comfortable, but looks like confused. A friend was sitting on the bedside OF patient, in the presence of flory and the patient's nurse Yudelka through the molding utility worker. The patient was totally confused, even do not know me and was not oriented. Length of time discussion done with the patient's friend, not clue why the patient is so confused asked from infectious disease. According to them, we will continue IV antibiotics because culture and sensitivity is still pending. The patient has complicated UTI including hydronephrosis and history of prostate cancer. PHYSICAL EXAMINATION: VITAL SIGNS: Temperature 97.6, pulse 55, respiratory rate 20, blood pressure 113/91, and pulse oximetry 96%. HEENT: Head is normocephalic and atraumatic. Eyes; PERRLA. Extraocular muscles intact. Conjunctivae are clear. Nose is patent. Mucous membranes moist. NECK: Supple. No carotid bruits, JVD or thyromegaly. CHEST: Bilateral symmetrical. HEART: S1 and S2 positive. LUNGS: Clear to auscultation. ABDOMEN: Soft. Tender in the lower part. EXTREMITIES: No edema. No cyanosis. NEUROLOGIC: The patient is awake, but confused. Moving all four extremities. He is not able to follow simple commands. MEDICATIONS: Tylenol, Pepcid, Maxipime, Keppra, Zestril, Claritin, Solu-Medrol tapering doses, Singulair, and MiraLax. LABORATORY DATA: White blood cell 7.4, hemoglobin 12.5, hematocrit 37.3, and platelets 215. Sodium 140, potassium 4.1, BUN 23, and creatinine 0.9. Glucose 217. ASSESSMENT AND PLAN: Mr. Julio Donald is a 66-year-old male with leukocytosis, anemia, hyperglycemia, has altered mental status today, lower abdominal pain due to bilateral hydronephrosis, rule out urinary tract infection, prostate cancer, status post urostomy, hypertension, history of deep vein thrombosis, history of hemorrhoids, and status post penile implant placement. Later on, [place] called me and told me that the patient has active seizures and was postictal. CAT scan of the head done reviewed by me. Re-consult called with the neurologist. Meanwhile, continue antibiotics cefepime, today is the day 5, pending repeat urine culture. If negative, the patient can be switched to p.o. Vantin for 5 to 7 days as per infectious disease. Waiting for neurologist input. Meanwhile, continue the present treatment. Discussion was done with the social workers also. Catherine Lopez MD MTDD
--- NOTE | 2017-02-12 03:11 | CON ---
HISTORY OF PRESENT ILLNESS: This is a 66-year-old male with past medical history of hypertension and prostate cancer, GERD, urostomy, penile implant and came to hospital had a recent onset of seizure. The patient was started on Keppra and otherwise, family bedside. PAST MEDICAL HISTORY: As above. ALLERGIES: NO KNOWN DRUG ALLERGY. SOCIAL HISTORY: Does not smoke, does not drink. REVIEW OF SYSTEMS: A 10-point review of system work negative. PHYSICAL EXAMINATION: HEENT: Normocephalic and atraumatic. NECK: Supple. NEUROLOGIC: Awake and oriented to self. No aphasia. Cranial nerve II to XII were tested. Pupils reactive. Spontaneous movements of the extremities noted. Deep tendon reflexes 1+. Both plantar's and sensory appears intact. Cerebellar and gait deferred. IMPRESSION: A 66-year-old male with past medical history of hypertension, prostate cancer, gastroesophageal reflux disease, urostomy and CT showed bilateral hydronephrosis, hydroureter and called to reevaluate the patient. The patient had no seizure, no tongue bite, no urinary incontinence, continue Keppra 500 twice a day. We will followup. Channing Davis MD
--- NOTE | 2017-02-12 04:32 | PN ---
DATE: 02/11/2017 SUBJECTIVE: The patient is seen and examined at the bedside, sitting on the chair, looks comfortable, in the sense no complaints, but mental status is totally changed. I interviewed the patient with the boring mill set up operator. The patient's friend was sitting over there also. No nausea, vomiting, or diarrhea, but is confused, even he cannot recognize me and is not able to *------* any complaints. The patient is still getting IV antibiotics. Discussion done with ID, they are waiting for culture and sensitivity. The patient has complicated system with urinary tract, multiple surgeries, hydronephrosis, but later on, the nurse called me that patient had seizure, that seizure was witnessed by friend, may be patient was postictal, but mental level is not at baseline. PHYSICAL EXAMINATION: VITAL SIGNS: Temperature 97.6, pulse 55, respiratory rate 20, blood pressure 132/91, pulse oximetry 96. HEENT: Head, normocephalic and atraumatic. Eyes, PERRLA. Extraocular muscles intact. Conjunctivae clear. Nose patent. Mucous membrane moist. NECK: Supple. No carotid bruits or thyromegaly. CHEST: Bilaterally symmetrical. CARDIOPULMONARY: S1 and S2 positive. LUNGS: Clear to auscultation. ABDOMEN: Soft, tender in the lower part. EXTREMITIES: No edema, no cyanosis. NEUROLOGIC: The patient is awake and alert,follows simple commands. MEDICATIONS: Tylenol, Pepcid, Maxipime, Keppra, Zestril, Claritin, Solu-Medrol tapering doses, Singulair, MiraLAX. LABORATORY DATA: White blood cells 17.4, hemoglobin 12.5, hematocrit 37.3, platelets 250. Sodium 140, potassium 4.1, BUN 29, creatinine 0.9, glucose 217. ASSESSMENT AND PLAN: Mr. Julio Donald is a 66-year-old male with leukocytosis; anemia; hyperglycemia; abdominal pain probably due to bilateral hydronephrosis, rule out complicated urinary tract infection; prostate cancer, status post urostomy; hypertension; history of deep venous thrombosis; history of hemorrhoids; history of penile implant placement; history of uncontrolled seizures; altered mental status. We will continue cefepime day 5 depending on the repeat urine cultures . As per Infectious Disease if negative, we will plan to switch the patient to p.o. antibiotics for at least 7 days, but meanwhile. we will continue IV antibiotics. Length of time discussion done with the patient and with the patient's nurse, Yudelka and nursing Paul higgins and patient's friend and we did translation through the boring mill set up operator. Gastrointestinal and deep venous thrombosis prophylaxis, repeat labs, we will follow up. Catherine Lopez MD
[2017-02-12 08:43] VITALS: RESP 20
[2017-02-12] MEDS ORDERED: Vancomycin 1gm in NS 250ml 1 GM/250 ML BAG IVPB STA (09:09)
[2017-02-12] MEDS: Amoxicillin-Clav 875-125 mg Tab PO SCH ×2 (10:16→22:01)
[2017-02-12] MEDS: MethylPREDNISolone 40 mg Vial IVP SCH ×2 (10:17→22:01)
--- NOTE | 2017-02-12 10:18 | CP.PCM.PN ---
<Kenneth Rico - Last Filed: 02/12/17 17:54> Subjective - Date & Time of Evaluation Date of Evaluation: 02/12/17 Time of Evaluation: 10:15 - Subjective Subjective: Neurology Progress Note Pt seen and examined at bedside. Pt doing well this morning with no acute overnight events. Pt states he has no complaints at this time. Denies any CP, SOB, seizures, urinary/bowel incontinence, N/V/D. Objective - Vital Signs/Intake and Output Vital Signs (last 24 hours): Temp Pulse Resp BP Pulse Ox 97.7 F 69 20 143/99 H 99 02/12/17 08:00 02/12/17 08:00 02/12/17 08:00 02/12/17 08:00 02/12/17 08:00 Intake and Output: 02/12/17 02/12/17 06:59 18:59 Intake Total 720 Output Total 3000 Balance -2280 - Medications Medications: Current Medications Acetaminophen (Tylenol 325mg Tab) 650 mg PO Q4H PRN PRN Reason: Pain, moderate (4-7) Acetaminophen (Tylenol 325mg Tab) 650 mg PO Q4H PRN PRN Reason: Fever >100.4 F Amoxicillin/Clavulanate Potassium (Augmentin 875 Mg-125 Mg Tab) 1 tab PO Q12 [facility] PRN Reason: Protocol Famotidine (Pepcid) 40 mg PO HS [facility] Last Admin: 02/11/17 21:33 Dose: 40 mg Vancomycin HCl (Vancomycin 1gm) 1 gm in 250 mls @ 167 mls/hr IVPB STAT [facility] PRN Reason: Protocol Stop: 02/12/17 10:38 Last Admin: 02/12/17 09:38 Dose: 167 mls/hr Levetiracetam (Keppra) 750 mg PO BID [facility] Lisinopril (Zestril) 5 mg PO DAILY [facility] Last Admin: 02/11/17 09:11 Dose: 5 mg Loratadine (Claritin) 10 mg PO DAILY [facility] Last Admin: 02/11/17 09:11 Dose: 10 mg Methylprednisolone (Solu-Medrol) 20 mg IVP Q12 [facility] Last Admin: 02/11/17 21:34 Dose: 20 mg Montelukast Sodium (Singulair) 10 mg PO HS [facility] Last Admin: 02/11/17 21:33 Dose: 10 mg Polyethylene Glycol (Miralax) 17 gm PO BID [facility] Last Admin: 02/11/17 17:12 Dose: 17 gm - Labs Labs: 02/09/17 09:20 02/09/17 09:20 - Constitutional Appears: Well, No Acute Distress - Head Exam Head Exam: ATRAUMATIC, NORMAL INSPECTION, NORMOCEPHALIC - ENT Exam ENT Exam: Mucous Membranes Moist - Respiratory Exam Respiratory Exam: Clear to Ausculation Bilateral, NORMAL BREATHING PATTERN. absent: Rales, Rhonchi, Wheezes - Cardiovascular Exam Cardiovascular Exam: RRR, +S1, +S2 - GI/Abdominal Exam GI & Abdominal Exam: Soft, Normal Bowel Sounds. absent: Tenderness - Extremities Exam Extremities Exam: absent: Calf Tenderness, Pedal Edema - Neurological Exam Neurological Exam: Alert, Awake, Oriented x3 - Skin Skin Exam: Intact, Normal Color, Warm Assessment and Plan - Assessment and Plan (Free Text) Plan: 66 y/o M with PMH HTN, left congenital kidney disorder, left ileal conduit, prostate cancer, GERD, urostomy, and penile implant reconsulted for new onset confusion and possible seizure. Head CT displayed generalized atrophy of the brain. Pt with possible breakthrough seizure leading to confusion yesterday. At this time, Keppra will be increased to 750 mg BID. EEG has also been ordered. Pt appears to have no new focal neurological deficits. Plan: - Start Keppra 750 mg BID - EEG pending - Continue with physical therapy - Continue current medical management Seen, reviewed, and discussed with attending Trisha PGY-2 <Pawan Davis - Last Filed: 02/13/17 11:39> Objective - Vital Signs/Intake and Output Vital Signs (last 24 hours): Temp Pulse Resp BP Pulse Ox 97.8 F 61 20 155/107 H 97 02/12/17 16:00 02/13/17 06:44 02/12/17 16:00 02/13/17 06:44 02/12/17 16:00 Intake and Output: 02/13/17 02/13/17 06:59 18:59 Intake Total 900 Output Total 2000 Balance -1100 - Medications Medications: Current Medications Acetaminophen (Tylenol 325mg Tab) 650 mg PO Q4H PRN PRN Reason: Pain, moderate (4-7) Acetaminophen (Tylenol 325mg Tab) 650 mg PO Q4H PRN PRN Reason: Fever >100.4 F Amoxicillin/Clavulanate Potassium (Augmentin 875 Mg-125 Mg Tab) 1 tab PO Q12 [facility] PRN Reason: Protocol Last Admin: 02/13/17 09:40 Dose: 1 tab Famotidine (Pepcid) 40 mg PO HS [facility] Last Admin: 02/12/17 22:01 Dose: 40 mg Levetiracetam (Keppra) 750 mg PO BID [facility] Last Admin: 02/13/17 09:39 Dose: 750 mg Lisinopril (Zestril) 5 mg PO DAILY [facility] Last Admin: 02/13/17 06:44 Dose: 5 mg Loratadine (Claritin) 10 mg PO DAILY [facility] Last Admin: 02/13/17 09:39 Dose: 10 mg Methylprednisolone (Solu-Medrol) 20 mg IVP Q12 [facility] Last Admin: 02/13/17 09:40 Dose: 20 mg Montelukast Sodium (Singulair) 10 mg PO HS [facility] Last Admin: 02/12/17 22:01 Dose: 10 mg Polyethylene Glycol (Miralax) 17 gm PO BID [facility] Last Admin: 02/13/17 09:39 Dose: 17 gm - Labs Labs: 02/09/17 09:20 02/09/17 09:20 Attending/Attestation - Attestation I have personally seen and examined this patient.: Yes I have fully participated in the care of the patient.: Yes I have reviewed all pertinent clinical information, including history, physical exam and plan: Yes
[2017-02-12] MEDS: POLYETHYLENE GLYCOL 3350 17 GM/Dose PACKET PO SCH ×2 (12:29→18:12)
--- NOTE | 2017-02-12 14:15 | CP.PCM.PN ---
Subjective - Date & Time of Evaluation Date of Evaluation: 02/12/17 Time of Evaluation: 10:25 - Subjective Subjective: Comfortable, not in distress, afebrile. Objective - Vital Signs/Intake and Output Vital Signs (last 24 hours): Temp Pulse Resp BP Pulse Ox 97.6 F 71 18 144/99 H 98 02/11/17 16:00 02/11/17 16:00 02/11/17 16:00 02/11/17 16:00 02/11/17 16:00 Intake and Output: 02/12/17 02/12/17 06:59 18:59 Intake Total 720 Output Total 3000 Balance -2280 - Medications Medications: Current Medications Acetaminophen (Tylenol 325mg Tab) 650 mg PO Q4H PRN PRN Reason: Pain, moderate (4-7) Acetaminophen (Tylenol 325mg Tab) 650 mg PO Q4H PRN PRN Reason: Fever >100.4 F Famotidine (Pepcid) 40 mg PO [facility] Last Admin: 02/11/17 21:33 Dose: 40 mg Cefepime HCl (Maxipime 1gm) 1 gm in 100 mls @ 100 mls/hr IVPB Q12 [facility] PRN Reason: Protocol Stop: 02/16/17 22:01 Last Admin: 02/11/17 21:33 Dose: 100 mls/hr Levetiracetam (Keppra) 500 mg PO BID [facility] Last Admin: 02/11/17 17:12 Dose: 500 mg Lisinopril (Zestril) 5 mg PO DAILY [facility] Last Admin: 02/11/17 09:11 Dose: 5 mg Loratadine (Claritin) 10 mg PO DAILY [facility] Last Admin: 02/11/17 09:11 Dose: 10 mg Methylprednisolone (Solu-Medrol) 20 mg IVP Q12 [facility] Last Admin: 02/11/17 21:34 Dose: 20 mg Montelukast Sodium (Singulair) 10 mg PO [facility] Last Admin: 02/11/17 21:33 Dose: 10 mg Polyethylene Glycol (Miralax) 17 gm PO BID [facility] Last Admin: 02/11/17 17:12 Dose: 17 gm - Labs Labs: 02/09/17 09:20 02/09/17 09:20 - Constitutional Appears: Non-toxic, No Acute Distress - Head Exam Head Exam: NORMAL INSPECTION - ENT Exam ENT Exam: Mucous Membranes Moist - Neck Exam Neck Exam: absent: Meningismus - Respiratory Exam Respiratory Exam: Decreased Breath Sounds - Cardiovascular Exam Cardiovascular Exam: +S1, +S2 - GI/Abdominal Exam GI & Abdominal Exam: Soft. absent: Tenderness Assessment and Plan - Assessment and Plan (Free Text) Plan: Assessment Abdominal pain probably due to bilateral hydronephrosis R/O UTI - now growing Enterococcus in the urine Prostate cancer S/P urostomy HTN history of DVT history of hemorrhoids S/P penile implant placement Plan gave a dose of IV Vancomycin and switched Cefepime to Augmentin (day 6) pending sensitivities of the Enterococcus in the repeat urine cx will monitor clinically
[2017-02-12 16:21] VITALS: TEMP 97.8; O2SAT 97
--- NOTE | 2017-02-12 17:19 | CP.PCM.PCO ---
Physician Communication Note - Physician Communication Note Physician Communication Note: eeg showed BCD, no sz activity. C/W keppra 750 po bid, he is stable.,
--- NOTE | 2017-02-12 17:39 | EEG ---
DATE: 02/12/2017 CONDITION OF THE RECORDING: Drowsy EEG. DIAGNOSIS: Seizure. MEDICATIONS: Keppra. INTERPRETATION: This is a 16-channel that nurse recorded. The background activity was composed of 6 cycles per second. There was small amount of beta activity 16 to 20 cycles per seconds that is seen in this recording. There was increased amount of theta activity of 5-7 cycles per seconds seen throughout the tracing. Drowsiness was characterized by mixed beta and theta activities. The sleep was characterized by vertex transiently slowing. Photic stimulation showed no change in the tracing. No paroxysmal activity noted in this recording. CONCLUSION: This is an abnormal EEG due to the presence of diffuse slowing with no evidence of any epileptiform activity consistent with bilateral cerebral dysfunction. Pawan Davis MD
--- NOTE | 2017-02-13 04:12 | PN ---
SUBJECTIVE: The patient is seen and examined on the bedside, fully awake and alert. No nausea, vomiting, diarrhea, or hematochezia. No swelling of the leg. No chest pain. No headache. No dizziness. Lower abdominal pain got better. He was on the phone with his daughter and even I talked to his daughter, all questions answered, and she did translation for me. PHYSICAL EXAMINATION: VITAL SIGNS: Temperature 97.8, pulse 67, blood pressure 133/89, and respiratory rate 20. HEENT: Head is normocephalic and atraumatic. Eyes, PERRLA. Extraocular muscles intact. Conjunctivae clear. Nose patent. NECK: Supple. No carotid bruits, JVD, or thyromegaly. CHEST: Bilaterally symmetrical. HEART: S1 and S2 positive. LUNGS: Clear to auscultation. ABDOMEN: Soft. Bowel sounds present. No organomegaly. EXTREMITIES: No edema. No cyanosis. NEUROLOGIC: The patient is awake and alert. Moving all 4 extremities. No focal deficits. MEDICATIONS: Augmentin, Claritin, Keppra, MiraLax, Pepcid, Singulair, Solu-Medrol, Tylenol, and Zestril. LABORATORY DATA: White blood cell is 17.4, hemoglobin 12.5, hematocrit 37.3, and platelets 215. We do not have actually lab today, but I reviewed old labs. ASSESSMENT AND PLAN: Mr. Julio Donald is a 66-year-old male. The patient came with abdominal pain, probably due to bilateral hydronephrosis, rule out urinary tract infection, now growing enterococcus in the urine, prostate cancer, status post urostomy, hypertension, history of deep vein thrombosis, history of hemorrhoids, status post penile implant, gave dose of vancomycin and switch the cefepime to Augmentin, on day #6, depending on sensitivity of enterococcus in the repeat urine, history of left kidney disorder, left ileal conduit, gastroesophageal reflux disease. CAT scan of the head done shows atrophy of the brain. The patient has breakthrough seizure leading to the confusion yesterday. When I saw yesterday, the patient was postictal. Neurology increased the Keppra to 750 mg b.i.d. Electroencephalogram done. Continue physical therapy. According to Dr. Pawan Davis, electroencephalogram shows an abnormal EEG due to presence of diffuse slowing with no evidence of any epileptiform activity consistent with bilateral cerebral dysfunction. We will continue present treatment, gastrointestinal/deep vein thrombosis prophylaxis, repeat laboratories. We will follow. Catherine Lopez MD JAYLA
[2017-02-13 06:46] VITALS: BP 155/107; PULSE 61
--- NOTE | 2017-02-13 06:46 | CP.PCM.PN ---
Subjective - Date & Time of Evaluation Date of Evaluation: 02/13/17 Time of Evaluation: 06:44 - Subjective Subjective: Nurse calls with her concern for blood pressure of 155/107. Patient was seen at bed side. He has no complaints. Speaks [place]. Denies headache , dizziness. Medical reocrd was reviewed. This 66 year old male was admitted with worsening lower abdominal pain , fever, Has PMH of prostate cancer , urostomy tube, non functioning left kidney, dizziness, former smoker. Objective - Vital Signs/Intake and Output Vital Signs (last 24 hours): Temp Pulse Resp BP Pulse Ox 97.8 F 67 20 133/89 97 02/12/17 16:00 02/12/17 16:00 02/12/17 16:00 02/12/17 16:00 02/12/17 16:00 Intake and Output: 02/12/17 02/13/17 18:59 06:59 Intake Total 900 Output Total 2000 Balance -1100 - Medications Medications: Current Medications Acetaminophen (Tylenol 325mg Tab) 650 mg PO Q4H PRN PRN Reason: Pain, moderate (4-7) Acetaminophen (Tylenol 325mg Tab) 650 mg PO Q4H PRN PRN Reason: Fever >100.4 F Amoxicillin/Clavulanate Potassium (Augmentin 875 Mg-125 Mg Tab) 1 tab PO Q12 [facility] PRN Reason: Protocol Last Admin: 02/12/17 22:01 Dose: 1 tab Famotidine (Pepcid) 40 mg PO HS [facility] Last Admin: 02/12/17 22:01 Dose: 40 mg Levetiracetam (Keppra) 750 mg PO BID [facility] Last Admin: 02/12/17 18:10 Dose: 750 mg Lisinopril (Zestril) 5 mg PO DAILY [facility] Last Admin: 02/12/17 10:16 Dose: 5 mg Loratadine (Claritin) 10 mg PO DAILY [facility] Last Admin: 02/12/17 10:16 Dose: 10 mg Methylprednisolone (Solu-Medrol) 20 mg IVP Q12 [facility] Last Admin: 02/12/17 22:01 Dose: 20 mg Montelukast Sodium (Singulair) 10 mg PO HS [facility] Last Admin: 02/12/17 22:01 Dose: 10 mg Polyethylene Glycol (Miralax) 17 gm PO BID [facility] Last Admin: 02/12/17 18:12 Dose: 17 gm - Labs Labs: 02/09/17 09:20 02/09/17 09:20 - Constitutional Appears: Well, No Acute Distress - Head Exam Head Exam: ATRAUMATIC, NORMAL INSPECTION, NORMOCEPHALIC - Eye Exam Eye Exam: Normal appearance - ENT Exam ENT Exam: Normal External Ear Exam - Neck Exam Neck Exam: Normal Inspection - Respiratory Exam Respiratory Exam: NORMAL BREATHING PATTERN - Cardiovascular Exam Cardiovascular Exam: absent: JVD - GI/Abdominal Exam GI & Abdominal Exam: absent: Distended - Rectal Exam Rectal Exam: Deferred - Exam Additional comments: Deferred. - Extremities Exam Extremities Exam: Normal Inspection - Back Exam Back Exam: NORMAL INSPECTION - Neurological Exam Neurological Exam: Alert, Awake - Psychiatric Exam Psychiatric exam: Normal Affect, Normal Mood - Skin Skin Exam: Normal Color Assessment and Plan - Assessment and Plan (Free Text) Assessment: Elevated blood pressure reading. HTN. Prostate cancer hx. Hx of urostomy bag. Leukocytosis. Borderline anemia. Plan: Zestril 5 mg po now instead of at 10:00 AM. Continue present management.
[2017-02-13] MEDS: POLYETHYLENE GLYCOL 3350 17 GM/Dose PACKET PO SCH (09:39)
[2017-02-13] MEDS: Amoxicillin-Clav 875-125 mg Tab PO SCH (09:40)
[2017-02-13] MEDS: MethylPREDNISolone 40 mg Vial IVP SCH (09:40)
--- NOTE | 2017-02-13 14:09 | CP.PCM.PN ---
Subjective - Date & Time of Evaluation Date of Evaluation: 02/13/17 Time of Evaluation: 13:00 - Subjective Subjective: Comfortable, not in distress, afebrile, no abdominal pain currently. Objective - Vital Signs/Intake and Output Vital Signs (last 24 hours): Temp Pulse Resp BP Pulse Ox 97.8 F 61 20 155/107 H 97 02/12/17 16:00 02/13/17 06:44 02/12/17 16:00 02/13/17 06:44 02/12/17 16:00 Intake and Output: 02/13/17 02/13/17 06:59 18:59 Intake Total 900 Output Total 2000 Balance -1100 - Medications Medications: Current Medications Acetaminophen (Tylenol 325mg Tab) 650 mg PO Q4H PRN PRN Reason: Pain, moderate (4-7) Acetaminophen (Tylenol 325mg Tab) 650 mg PO Q4H PRN PRN Reason: Fever >100.4 F Amoxicillin/Clavulanate Potassium (Augmentin 875 Mg-125 Mg Tab) 1 tab PO Q12 [facility] PRN Reason: Protocol Last Admin: 02/12/17 22:01 Dose: 1 tab Famotidine (Pepcid) 40 mg PO [facility] Last Admin: 02/12/17 22:01 Dose: 40 mg Levetiracetam (Keppra) 750 mg PO BID [facility] Last Admin: 02/12/17 18:10 Dose: 750 mg Lisinopril (Zestril) 5 mg PO DAILY [facility] Last Admin: 02/13/17 06:44 Dose: 5 mg Loratadine (Claritin) 10 mg PO DAILY [facility] Last Admin: 02/12/17 10:16 Dose: 10 mg Methylprednisolone (Solu-Medrol) 20 mg IVP Q12 [facility] Last Admin: 02/12/17 22:01 Dose: 20 mg Montelukast Sodium (Singulair) 10 mg PO HS [facility] Last Admin: 02/12/17 22:01 Dose: 10 mg Polyethylene Glycol (Miralax) 17 gm PO BID [facility] Last Admin: 02/12/17 18:12 Dose: 17 gm - Labs Labs: 02/09/17 09:20 02/09/17 09:20 - Constitutional Appears: Non-toxic, No Acute Distress - Head Exam Head Exam: NORMAL INSPECTION - Neck Exam Neck Exam: absent: Meningismus - Respiratory Exam Respiratory Exam: Decreased Breath Sounds - Cardiovascular Exam Cardiovascular Exam: +S1, +S2 - GI/Abdominal Exam GI & Abdominal Exam: Soft. absent: Tenderness Additional comments: urostomy in place Assessment and Plan - Assessment and Plan (Free Text) Plan: Assessment Abdominal pain probably due to bilateral hydronephrosis with probable UTI - now growing Enterococcus in the urine Prostate cancer S/P urostomy HTN history of DVT history of hemorrhoids S/P penile implant placement Plan continue Augmentin for another 7 days (Enterococcus is sensitive to Ampicillin)
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
== END 2017-02-13 15:04 | disposition home or self-care (01) | DRG 690 ==
LOC: ED 10:56 → ERH 18:22 → 5RNO 20:13
PROVIDERS: ADMIT Internal Medicine; ATTEND Internal Medicine
DX: N13.6 Pyonephrosis (principal); R56.9 Unspecified convulsions; I10 Essential (primary) hypertension; D64.9 Anemia, unspecified; R80.9 Proteinuria, unspecified; R31.9 Hematuria, unspecified; K64.9 Unspecified hemorrhoids; K59.00 Constipation, unspecified; K21.9 Gastro-esophageal reflux disease without esophagitis; K64.8 Other hemorrhoids; R73.9 Hyperglycemia, unspecified; E86.0 Dehydration; Z96.0 Presence of urogenital implants; Z93.6 Other artificial openings of urinary tract status; Z90.79 Acquired absence of other genital organ(s); Z85.46 Personal history of malignant neoplasm of prostate; Z92.3 Personal history of irradiation; Z86.718 Personal history of other venous thrombosis and embolism; Z87.891 Personal history of nicotine dependence; Z93.2 Ileostomy status

== ENCOUNTER 2018-07-15 12:05 | Emergency (ER) | payer OTHER ==
[2018-07-15 12:08] VITALS: BMI 29.7
[2018-07-15 12:55] VITALS: RESP 18
[2018-07-15 14:13] LABS: URINE BILIRUBIN NEGATIVE (NEGATIVE); URINE BLOOD SMALL (NEGATIVE); URINE GLUCOSE (UA) NEGATIVE (NEGATIVE); URINE LEUKOCYTE ESTERASE LARGE Leu/uL (NEGATIVE); URINE PROTEIN 30 mg/dL (<30 mg/dL); URINE UROBILINOGEN 0.2 E.U./dL (<1 E.U./dL)
[2018-07-15 14:14] LABS: URINE APPEARANCE SL CLOUDY (CLEAR); URINE COLOR YELLOW (YELLOW)
[2018-07-15 14:20] LABS: URINE AMORPHOUS SEDIMENT SMALL /hpf; URINE BACTERIA MANY /hpf; URINE EPITHELIAL CELLS 0 - 2 /hpf (0-5); URINE WBC 25 - 30 /hpf (0-6); URINE WHITE BLOOD CELL CAST 0-1 /hpf
--- NOTE | 2018-07-15 14:21 | ED PDOC ---
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 Patient reports pain is a stabbing sensation. Patient denies any fever, chills, shortness of breath, chest pain, diarrhea, nausea, vomiting, urinary symptoms, neck pain, headache, dizziness, or any other complaints. PMD: Dr. Lopez Time/Duration: Other (a few days) Symptom Onset: Gradual Symptom Course: Unchanged Activities at Onset: Light Context: Home Past Medical History - Provider Review Nursing Documentation Reviewed: Yes - Infectious Disease Hx of Infectious Diseases: None - Tetanus Immunization Tetanus Immunization: Unknown - Cardiac Hx Hypertension: Yes - Pulmonary Hx Respiratory Disorders: No - Neurological Hx Neurological Disorder: Yes Hx Dizziness: Yes Hx Seizures: Yes Other/Comment: Dizzyness, periods of loss of consciences - HEENT Hx HEENT Disorder: No - Renal Hx Renal Disorder: Yes (LT KIDNEY NOT WORKING SINCE ) Other/Comment: UROSTOMY/ LT ILEAL CONDUIT BAG 2010 - Endocrine/Metabolic Hx Endocrine Disorders: No - Hematological/Oncological Hx Cancer: Yes (Prostate, tx with radiation) Other/Comment: prostatectomy, - Integumentary Hx Dermatological Disorder: No - Musculoskeletal/Rheumatological Hx Falls: No - Gastrointestinal Hx Gastrointestinal Disorders: Yes (gastritis, hemorrhoids) - Genitourinary/Gynecological Hx Genitourinary Disorders: Yes (UROSTOMY BAG) Other/Comment: PENILE SURGERY (FOR ERECTION) - Psychiatric Hx Emotional Abuse: No Hx Physical Abuse: No Hx Substance Use: No - Surgical History Other/Comment: Prostate - Anesthesia Hx Anesthesia: Yes Hx Anesthesia Reactions: No Hx Malignant Hyperthermia: No - Suicidal Assessment Feels Threatened In Home Enviroment: No Family/Social History - Physician Review Nursing Documentation Reviewed: Yes Family/Social History: No Known Family HX Smoking Status: Former Smoker Hx Alcohol Use: Yes (occasional) Hx Substance Use: No Allergies/Home Meds Allergies/Adverse Reactions: Allergies No Known Allergies Allergy (Verified 07/15/18 12:55) Home Medications: Home Meds Medication Instructions Recorded Confirmed Lisinopril [Zestril] 5 mg PO DAILY 02/11/17 07/17/17 Omeprazole 20 mg PO BID 02/11/17 07/17/17 Review of Systems - Physician Review All systems were reviewed & negative as marked: Yes - Review of Systems Constitutional: absent: Fevers, Night Sweats Respiratory: absent: SOB Cardiovascular: absent: Chest Pain Gastrointestinal: absent: Diarrhea, Nausea, Vomiting Genitourinary Male: absent: Urinary Output Changes Musculoskeletal: Back Pain (back pain and back odor). absent: Neck Pain Neurological: absent: Headache, Dizziness Physical Exam - Physical Exam Narrative Physical Exam (Text): 07/15/18 14:03 Gen: VS reviewed, alert, well developed, well nourished, nontoxic, mild distress. ENT: normal pharynx. Eye: EOMI, PERRL. Neck: no JVD, supple, no adenopathy. CV: regular rate, regular rhythm, no rubs, no murmur, no gallops, S1, S2, pulses equal and strong. Pulm: no distress, clear to auscultation, no wheeze, no rhonchi, breath sounds equal, no rales. Abd: soft, nontender, no guarding, no rebound, no rigidity, normal bowel sounds. Ext: no edema. Skin: good color, no rash, no cyanosis. Psych: responds appropriately to questions, normal affect. Neuro: oriented x 3, CN2-12 intact grossly, motor intact, sensation intact. Vital Signs Reviewed: Yes Vital Signs Temp Pulse Resp BP Pulse Ox 07/15/18 12:48 98 F 65 18 130/85 99 Temperature: Afebrile Blood Pressure: Normal Pulse: Regular Respiratory Rate: Normal Medical Decision Making ED Course and Treatment: 07/15/18 14:03 Impression: 68 year old male complaining of back odor and back pain. Plan: -- BMP -- CBC -- Urine Culture -- Reassess and disposition Prior Visits: Notes and results from previous visits were reviewed. Progress Notes: 07/15/18 14:39 Leaving Against Medical Advice (AMA): The patient is choosing to leave against medical advice. I have personally explained to the patient that choosing to do so may result in permanent bodily harm or . I have discussed at great length that without further evaluation and monitoring there may be unforeseen circumstances and/or deterioration causing permanent bodily harm or as a result of their choice. The patient is alert, oriented, and shows the mental capacity to make clear decisions regarding the patients health care at this time. The patient continues to wish to leave against medical advice. In light of the patients decision to leave against medical advice, follow-up has been arranged and the patient is aware of the importance to following up as instructed. The patient has been advised that they should return to the emergency room immediately if they change their mind at any time, or if their condition begins to change or worsen in any way. 07/15/18 18:14 patient's iv infiltrated, will switch iv cipro to po. at this time pending CT to rule out ureteral obstruction vs other - Lab Interpretations Lab Results: Lab Results 07/15/18 13:57: Urine Color Yellow, Urine Appearance Sl cloudy, Urine pH 7.0, Ur Specific [place] 1.015, Urine Protein 30 H, Urine Glucose (UA) Negative, Urine Ketones Negative, Urine Blood Small H, Urine Nitrate Positive H, Urine Bilirubin Negative, Urine Urobilinogen 0.2, Ur Leukocyte Esterase Large H, Urine RBC Pending, Urine WBC Pending - RAD Interpretation Narrative RAD Interpretations (Text): CT Abdomen and Pelvis: Chest: The visualized lung bases are clear. Abdomen: The kidneys are normal in size bilaterally. A percutaneous right-sided nephrostomy tube, as well as a right ureteral stent, are in place. There is chronic bilateral hydronephrosis. There is no evidence of nephrolithiasis. The liver, spleen, pancreas, gallbladder and adrenal glands are unremarkable. The aorta demonstrates normal caliber and contour. There is no abdominal lymphadenopathy or ascites. Pelvis: The bowel is unremarkable, with no obstructive or inflammatory changes. A left-sided ostomy is appreciated. There is moderate sigmoid diverticulosis. The patient is status post cystectomy. Urostomy bag is noted. There is no pelvic lymphadenopathy or ascites. The other pelvic structures appear unremarkable. Bones: There are no suspicious osseous abnormalities seen. Impression: 1. Right-sided percutaneous nephrostomy tube and right ureteral stents are in place. 2. Chronic bilateral hydronephrosis. No evidence of nephrolithiasis. Urostomy is grossly intact. 3. No obstructive or inflammatory bowel changes. Moderate sigmoid ketosis. Electronically signed on Jul 15, 2018 8:46:30 PM EST by: Juan Diez M.D., SHEA Certified By [facility]BR & CBC[employer] Fellowship Trained MRI and CT Specialist Machine Setter: Radiologist - Kaitlynn Statement The provider has reviewed the documentation as recorded by the Lenoraibe Aicha Snell All medical record entries made by the Scribe were at my direction and personall y dictated by me. I have reviewed the chart and agree that the record accurately reflects my personal performance of the history, physical exam, medical decision making, and the department course for this patient. I have also personally directed, reviewed, and agree with the discharge instructions and disposition. Disposition/Present on Arrival - Present on Arrival Any Indicators Present on Arrival: No History of DVT/PE: No History of Uncontrolled Diabetes: No Urinary Catheter: No (urostomy) History of Decub. Ulcer: No History Surgical Site Infection Following: None - Disposition Have Diagnosis and Disposition been Completed?: Yes Diagnosis: UTI (urinary tract infection) Disposition: HOME/ ROUTINE Disposition Time: 20:54 Patient Plan: Discharge Patient Problems: Current Active Problems Problem Status Onset UTI (urinary tract infection) Acute Condition: STABLE Discharge Instructions (ExitCare): Urinary Tract Infections in Adults Print Language: FINNISH Additional Instructions: return for any new or worsening symptoms. follow up with your urologist as soon as possible. Regrese por cualquier sntoma nuevo o que empeore. seguimiento con castillo urlogo hook pronto abhay sea posible. Prescriptions: Ciprofloxacin [Cipro] 500 mg PO BID 10 Days #20 tab Referrals: Catherine Lopez MD [Primary Care Provider] - Follow up with primary Forms: [employer] (Senegalese), WORK NOTE
[2018-07-15 15:45] LABS: BLOOD UREA NITROGEN 25 mg/dL (7-21); CALCIUM 9.3 mg/dL (8.4-10.5); GFR NON-AFRICAN AMERICAN 50
[2018-07-15 15:49] LABS: BASO # 0.01 K/mm3 (0.0-2.0); BASO % 0.1 % (0.0-3.0); EOS # 0.4 (0.0-0.7); GRAN # 4.41 (1.4-6.5); GRAN % 63.4 % (50.0-68.0); HEMOGLOBIN 12.6 g/dL (14.0-18.0); LYMPH # 1.7 (1.2-3.4); LYMPH % 23.9 % (22.0-35.0); MEAN CELL VOLUME 89.5 fl (80.0-105.0); MEAN CORPUSCULAR HGB CONC 33.5 g/dl (31.0-37.0); MEAN PLATELET VOLUME 11.2 fl (7.0-11.0); MONO # 0.5 (0.1-0.6); MONO % 6.6 % (1.0-6.0); RBC 4.2 10^6/uL (3.5-6.1); RED CELL DISTRIBUTION WIDTH 14.3 % (11.5-14.5)
[2018-07-15] MEDS ORDERED: Ciprofloxacin 400mg/200ml D5W 400 MG/200 ML BAG IVPB STA (16:15)
[2018-07-15] MEDS ORDERED: Iohexol 350 MG/100 ML VIAL ONE (19:14)
[2018-07-16 00:02] VITALS: BP 128/77; PULSE 66; TEMP 98.1; O2SAT 99
--- NOTE | 2018-07-16 11:11 | CT ---
Date of service: 07/15/2018 PROCEDURE: CT Abdomen and Pelvis without intravenous contrast HISTORY: right flank pain COMPARISON: CT 08/18/2017 TECHNIQUE: Without contrast.. Contrast dose: Radiation dose: Total exam DLP = 1103.81 mGy-cm. This CT exam was performed using one or more of the following dose reduction techniques: Automated exposure control, adjustment of the mA and/or kV according to patient size, and/or use of iterative reconstruction technique. FINDINGS: LOWER THORAX: Unremarkable. LIVER: Unremarkable. No gross lesion or ductal dilatation. GALLBLADDER AND BILE DUCTS: Unremarkable. PANCREAS: Unremarkable. No gross lesion or ductal dilatation. SPLEEN: Unremarkable. ADRENALS: Unremarkable. No mass. KIDNEYS AND URETERS: There is a left lower quadrant ileostomy. There is a right sided nephrostomy tube and ureteral stent extending into the ileostomy. There is mild hydronephrosis of the left kidney. VASCULATURE: Unremarkable. No aortic aneurysm. No aortic atherosclerotic calcification or mural plaque present. BOWEL: Unremarkable. No obstruction. No gross mural thickening. APPENDIX: Unremarkable. Normal appendix. PERITONEUM: Unremarkable. No free fluid. No free air. LYMPH NODES: Unremarkable. No enlarged lymph nodes. BLADDER: Resected REPRODUCTIVE: Penile implant BONES: No acute fracture. OTHER FINDINGS: The report concurs with the preliminary [facility] report IMPRESSION: No acute intra-abdominal findings.
== END 2018-07-15 20:49 | disposition home or self-care (01) ==
LOC: ED 12:05
DX: N39.0 Urinary tract infection, site not specified (principal); I10 Essential (primary) hypertension; K21.9 Gastro-esophageal reflux disease without esophagitis; Z85.46 Personal history of malignant neoplasm of prostate; Z87.891 Personal history of nicotine dependence
CPT/HCPCS: 74176; 80048; 81001; 85025; 87086; 96365; 99284; J0744